=== PATIENT | female | born 1955 | race Caucasian/White ===

== ENCOUNTER 2023-01-03 14:50 | Outpatient (REF) | payer BC, MEDICARE, SELFPAY | END 2023-01-03 14:51 | disposition home or self-care (01) | LOC: HO.MAMMO 14:50 | PROVIDERS: PCP Internal Medicine Medical Oncology; Visit Provider Internal Medicine Medical Oncology | DX: Z12.31 Encounter for screening mammogram for malignant neoplasm of breast (principal) | CPT/HCPCS: 77063; 77067 ==

== ENCOUNTER → 2023-01-03 15:00 | Outpatient (BNV) | payer MEDICARE, BC, SELFPAY | PROVIDERS: PCP Internal Medicine Medical Oncology; Visit Provider Radiology Diagnostic Radiology | DX: Z12.31 Encounter for screening mammogram for malignant neoplasm of breast (principal) | CPT/HCPCS: 77063; 77067 ==

== ENCOUNTER 2023-04-23 18:20 | Outpatient (AMB) | payer MEDICARE, BC, SELFPAY ==
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
== END 2023-04-23 18:21 | disposition home or self-care (01) ==
LOC: HO.HOP 18:21
PROVIDERS: PCP Internal Medicine Medical Oncology; Visit Provider Clinical Nurse Specialist Psychiatric/Mental Health
DX: F43.11 Post-traumatic stress disorder, acute (principal); F40.01 Agoraphobia with panic disorder; A31.0 Pulmonary mycobacterial infection; J85.0 Gangrene and necrosis of lung; F33.9 Major depressive disorder, recurrent, unspecified
CPT/HCPCS: 99443

== ENCOUNTER → 2023-04-23 18:20 | Outpatient (BNVA) | payer MEDICARE, BC, SELFPAY | PROVIDERS: PCP Internal Medicine Medical Oncology; Visit Provider Clinical Nurse Specialist Psychiatric/Mental Health ==

== ENCOUNTER 2023-05-24 18:01 | Outpatient (AMB) | payer MEDICARE, BC, SELFPAY ==
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
== END 2023-05-24 18:08 | disposition home or self-care (01) ==
LOC: HO.HOP 18:01
PROVIDERS: PCP Internal Medicine Medical Oncology; Visit Provider Clinical Nurse Specialist Psychiatric/Mental Health
DX: F33.1 Major depressive disorder, recurrent, moderate (principal); F40.01 Agoraphobia with panic disorder; F43.11 Post-traumatic stress disorder, acute
CPT/HCPCS: 99443

== ENCOUNTER → 2023-05-24 18:01 | Outpatient (BNVA) | payer MEDICARE, BC, SELFPAY | PROVIDERS: PCP Internal Medicine Medical Oncology; Visit Provider Clinical Nurse Specialist Psychiatric/Mental Health | DX: F33.9 Major depressive disorder, recurrent, unspecified (principal); F40.01 Agoraphobia with panic disorder; F43.10 Post-traumatic stress disorder, unspecified ==

== ENCOUNTER 2023-07-13 15:43 | Outpatient (AMB) | payer MEDICARE, BC, SELFPAY ==
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
== END 2023-07-13 15:54 | disposition home or self-care (01) ==
LOC: HO.HOP 15:43
PROVIDERS: PCP Internal Medicine Medical Oncology; Visit Provider Clinical Nurse Specialist Psychiatric/Mental Health
DX: F33.9 Major depressive disorder, recurrent, unspecified (principal); F40.01 Agoraphobia with panic disorder; F43.10 Post-traumatic stress disorder, unspecified
CPT/HCPCS: 99214

== ENCOUNTER → 2023-07-13 15:43 | Outpatient (BNVA) | payer MEDICARE, BC, SELFPAY | PROVIDERS: PCP Internal Medicine Medical Oncology; Visit Provider Clinical Nurse Specialist Psychiatric/Mental Health | DX: F33.9 Major depressive disorder, recurrent, unspecified (principal); F40.01 Agoraphobia with panic disorder; F43.10 Post-traumatic stress disorder, unspecified | CPT/HCPCS: 99212 ==

== ENCOUNTER 2023-08-31 15:58 | Outpatient (AMB) | payer BC, MEDICARE, SELFPAY ==
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
--- OUTSIDE RECORDS SUMMARY | 2023-08-31 15:59 | XMS_ITS | Continuity of Care Document ---
Author Organization [facility] ter Address [address] [place] [id number]- Care Team Providers Care Bronc Buster Name Role Phone Jeremiah MENENDEZ, Ronnell Mckinnon Primary Care Physician Encounter [facility] [place] 04/22/20 - 08/26/[address] [id number] Attending Physician: Jerman Mckeon MD Admitting Physician: Jerman Mckeon MD Allergies, Adverse Reactions, Alerts Substance Reaction Severity Status Egg Allergy Severe Active Medications albuterol CFC free 90 mcg/inh inhalation aerosol 2, puffs, Inhalation, Every 4 hours, PRN, # 6.7 Gm, Refills 0, Maintenance, 03/25/20 16:35:00 EST, Aerosol Start Date: 03/25/20 Status: Ordered atorvastatin 10 mg oral tablet 1 tablet = 10 mg, By Mouth, Daily, # 30 tablet, 0 Refills, Maintenance, 03/25/20 16:34:00 EST, Partial fill upon patient request if the prescription is for a schedule II opioid drug. Start Date: 03/25/20 Status: Ordered buPROPion 300 mg/24 hours (XL) oral tablet, extended release 1 tablet = 300 mg, By Mouth, Daily, # 60 tablet, 0 Refills, Maintenance, 03/25/20 16:37:00 EST, ER Tablet, Partial fill upon patient request if the prescription is for a schedule II opioid drug. Start Date: 03/25/20 Status: Ordered escitalopram 10 mg oral tablet 1 tablet = 10 mg, By Mouth, Daily, # 30 tablet, 0 Refills, Maintenance, 03/25/20 16:37:00 EST, Tablet, Partial fill upon patient request if the prescription is for a schedule II opioid drug. Start Date: 03/25/20 Status: Ordered gabapentin 100 mg oral capsule 100 mg, 1, capsule, By Mouth, 2 times a day, # 120 capsule, Refills 0, Maintenance, 03/25/20 16:39:00 EST, Partial fill upon patient request if the prescription is for a schedule II opioid drug. Start Date: 03/25/20 Status: Ordered LORazepam 1 mg oral tablet 1 tablet = 1 mg, By Mouth, 3 times a day, PRN for anxiety, 0 Refills, Maintenance, 03/25/20 16:38:00 EST, Tablet, Partial fill upon patient request if the prescription is for a schedule II opioid drug. Start Date: 03/25/20 Status: Ordered meloxicam 15 mg oral tablet 1 tablet = 15 mg, By Mouth, Daily, # 30 tablet, 0 Refills, Maintenance, 03/25/20 16:35:00 EST, Tablet, Partial fill upon patient request if the prescription is for a schedule II opioid drug. Start Date: 03/25/20 Status: Ordered omeprazole 20 mg oral delayed release tablet 1 tablet = 20 mg, By Mouth, Daily, # 30 tablet, 0 Refills, Maintenance, 03/25/20 16:40:00 EST, CR Tablet, Partial fill upon patient request if the prescription is for a schedule II opioid drug. Start Date: 03/25/20 Status: Ordered Suprep Bowel Prep Kit oral liquid See Instructions, please follow instructions, # 354 mL, 0 Refills, Maintenance, 04/20/20 14:21:00 EST, [facility] #[id number], Partial fill upon patient request if the prescription is for a schedule II opioid drug., please follow instructions, 15... Start Date: 04/20/20 Status: Ordered tiZANidine 4 mg oral tablet 4 mg, 1, tablet, By Mouth, Every 8 hours, # 90 tablet, Refills 0, Maintenance, 03/25/20 16:35:00 EST, Partial fill upon patient request if the prescription is for a schedule II opioid drug. Start Date: 03/25/20 Status: Ordered traZODone 50 mg oral tablet 50 mg, 1, tablet, By Mouth, Daily at bedtime, # 30 tablet, Refills 0, Maintenance, 03/25/20 16:38:00 EST, Partial fill upon patient request if the prescription is for a schedule II opioid drug. Start Date: 03/25/20 Status: Ordered
--- OUTSIDE RECORDS SUMMARY | 2023-08-31 15:59 | XMS_ITS | Continuity of Care Document ---
Author Organization [facility] Address [address] [place] [id number]- Care Team Providers Care Char Conveyor Tender Cellar Name Role Phone Ronnell Daniels MD Primary Care Physician [place] [facility] [place]20 [facility] [address] [place] [id number] Allergies, Adverse Reactions, Alerts Substance Reaction Severity [...] mL, 0 Refills, Maintenance, 04/20/20 14:21:00 EST, [facility] #[id number], Partial fill upon patient request if the [...]
--- OUTSIDE RECORDS SUMMARY | 2023-08-31 15:59 | XMS_ITS | Patient Health Record ---
Author Organization Ronnell Daniels III, MD Address [address] [place] [address] [place] [address] Care Team Providers Care Acid Splicer Name Role Phone Ronnell Daniels Primary Care Provider [phone] ALLERGIES Allergen (clinical drug ingredient) Drug/Non Drug Allergy documented on EMR Reaction Allergy Type Onset Date Status Eggs or Egg-derived Products Unknown Drug Allergy Active Coconut Flavor Unknown Drug Allergy Ac tive raw pultery (uncoded) Unknown Allergy Active RESULTS Component Value Reference Range Notes MM tomosynthesis screening B I Reviewed date:01/21/2023 05:17:51 PM Interpretation: Performing Lab: Notes/Report: [address] [place] [address] Mammography Report Signed Patient: Chin MR#: [id number] : 1955 Acct:[id number] Age/Sex: 67 / F ADM Date: 01/03/23 Loc: HO.MAMMO Attending Dr: Ronnell Daniels MD Ordering Physician: Ronnell Daniels MD Results: 1Negativ e Date of Service: 01/03/23 Follow Up: 1 Year From Orig inal Mammogram Procedure(s): MM tomosynthesis screening BI Accession Number(s): [id number] cc: Ronnell Daniels MD EXAMINATION: MM SCREENING DIGITAL BREAST TOMOSYNTHESIS, BILATERAL CLINICAL INFORMATION: Screening. Asymptomatic. COMPARISON: Mammography: This study is compared with prior exams dating back to 2017. TECHNIQUE: Digital breast tomosynthesis is performed in both the craniocaudal and mediolateral oblique views along with computer-aided detection (CAD). Synthesized 2D images are generated from the tomosynthesis. FINDINGS: There are scattered areas of fibroglandular density (ACR BI-RADS breast composition Category b). There are no significant masses, abnormal calcifications, or other abnormalities. MM/MM tomosynthesis screening BI IMPRESSION: No mammographic evidence of malignancy. ASSESSMENT: BI-RADS BI-RADS 1 - Negative RECOMMENDATION: Routine annual mammography screening. 1 year F/U This examination should not preclude the clinical evaluation of a suspicious palpable abnormality. This patient's information was entered into a reminder system with a target due date for their next mammogram. Dictated By: Monica Mckeon MD Signed By: <Electronically signed by Monica Mckeon MD in OV> 01/19/23 0657 DD/ 1526 TD/TT: Digital Manager: REASON FOR REFERRAL No Information MEDICATIONS Medication SIG (Take, Route, Frequency, Duration) Notes Start Date End Date Status Wellbutrin SR 150 MG 1 tablet Orally Twi ce a day Active Meloxicam 15 mg TAKE 1 TABLET DAILY Active Azithromycin 250 MG as directed Orally 2 Tablets on the first day, then 1 tablet daily for 5 days for 5 days Active Atorvastatin Calcium 10 mg TAKE 1 TABLET DAILY Active Asmanex HFA Active Hydroxychloroquine Sulfate 1 00 MG as directed Orally Active LORazepam 1 MG 1 tablet at bedtime as needed Orally Twice a day 08/19/2019 Active Albuterol Sulfate HFA 108 (9 0 Base) MCG/ACT USE 2 INHALATIONS EVERY 4 HOURS NEEDED Active tiZANidine HCl 4 mg TAKE 1 TABLET THREE TIMES A DAY Active Furosemide 20 MG 1 tablet Orally Once a day 07/04/2022 Active oxyCODONE HCl 5 MG Oral A ctive SOCIAL HISTORY Tobacco Use: Social History Observation Description Date Details (start date - stop date) Former Smoker NA - NA Sex Assigned At : Social History Observation Description Sex Assigned At Female Tobacco Use/Smoking Question Answer Notes Patient is a former smoker How long has it been since you last smoked? > 10 years Additional Findings: Tobacco Non-User Ex-cigaret te smoker Alcohol Screen Question Answer Notes Did you have a drink containing alcohol in the p ast year? No Points 0 Interpretation Negative PROBLEMS Problem Type ICD Code Onset Dates Problem Status W/U Status Risk SNOMED Code Notes Problem Hyperlipidemia, unspecified hyperlipidemia type (E78.5) Active confirmed Hyperlipidaemia (55944835) A fasting lipid profile was recommended prior to her next visit. She seems healthy well at this time. She is tolerating the atorvastatin which has been continued. She is not sure she wants to have blood work done regularly at this point. She said she will consider it. It has been ordered prior to her next visit. Problem Asthma, unspecified asthma severity, unspecified whether complicated, unspecified whether persistent (J45.909) Active confirmed Asthma without status asthmaticus (37677468) She was breathing comfortably today and her asthmatic bronchitis has resolved. She was encouraged to call me if it worsens. Problem Anxiety (F41.9) Active confirmed 295325 02 She has felt a great deal of anxiety lately. She is going to see her therapist. She declined my offer of medication. Problem History of depression (Z86.59) Active confirmed 284998821 She says today that she has stopped all of her medications. It was unclear if she was taking the antidepressant s. I strongly recommended she take them. I will arrange close follow-up with her. She adamantly denied any suicidal thoughts or desire to hurt himself. Problem PTSD (post-traumatic stress disorder) (F43.10) Active confirmed 75359600 She will continue with therapy. Problem Primary osteoarthritis involving multiple joints (M15.0) Active confirmed 312166886 She has finished with the orthopedic surgeon and will now see the power wheelchair mechanic . She will take the meloxicam. Problem Osteopenia, unspecified location (M85.80) Active confirmed 945776469 She moe l have a bone density every 2 years. I recommended 500 mg of calcium per day orally with a multiple vitamin. She says she has been doing this. She denies any new bone pain in her back. Problem Atypical squamous cells of undetermined significance on cytologic smear of cervix (ASC-US) (R87.610) Active confirmed 295309421 Her previous physicians records indicate a history of positivity for HPV and ACUS. She has an upcoming appointment and I will attempt to find old records. 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 Problem Former smoker (Z87.891) Active confirmed 5554776 She seems highly motivated not to smoke. We formulated a plan to prevent relapse in times of stress and illness. Problem Sciatica of right side (M54.31) Active confirmed 66817275 Her back pa in is significantly better than recently. She will continue on current treatment. Problem Overweight (E66.3) Active confirmed 753490647 We reviewed her diet and nutrition today. I recommended weight loss at a rate of one half of a pound per week through a diet restricted in fat calories and sodium combined with regular physical activity. Problem Closed nondisplaced fracture of patella with routine healing, unspecified fracture morphology, unspecified laterality, subsequent encounter (S82.009D) Active confirmed 60116856 The pain in her knee is still present but is slowly diminishing as the wound heals. Problem Pulmonary nodule (R91.1) Active confirmed 191595700 The CT scan of February 18, 2022 shows possible increase in a 3 mm nodule right upper lobe. This will be subject to surveillance. Problem Coronary atherosclerosis due to calcified coronary lesion (I25.84) Active confirmed Atherosclerosis of coronary artery (591078523) She has had no angina or chest pain since her last visit. No change in her regimen was made. She has seen a automatic profile sander operator who thinks the pain comes from her lungs. Problem HTN (hypertension) (I10) Active confirmed Hypertension (78540196) Her blood pressure is in the normal range today. No change in her regimen was recommended. 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 I gently discussed with her the possible consequences of progressive infection. I offered to have her see pulmonary and infectious disease to discuss all of the possible alternatives to caring. The pulmonary infection. At this point in time, she is unwilling to talk to them or to take any further antibiotics. It is noted that she coughed repeatedly during the office visit. I will continue to monitor this situation closely and help arrived, had a successful strategy. Problem Closed fracture of right wrist with routine healing, subsequent encounter (S62.101D) Active confirmed 443680127 I encouraged her to continue her visits to the orthopedist and she said she would do so. Problem Mycobacterium avium infection (A31.0) Active confirmed 619072615 She is refusing to take her antibiotics for unclear reasons. She will proceed to the CT scan and the pulmonary ux consultant, Dr. Beltre, and we will reevaluate the status of her infection. I strongly advised her to finish the antibiotics. Encounters Encounter Location Date Provider Diagnosis Ronnell Daniels III, MD [address] [place] [address] [place] [address] 11/08/2022 Ronnell Daniels III, MD [address] [place] [address] [place] [address] 02/14/2023 Ronnell Daniels III, MD [address] [place] [address] [place] [address] 02/14/2023 Ronnell Daniels III, MD [address] [place] [address] [place] [address] 02/14/2023 Ronnell Daniels III, MD [address] [place] [address] [place] [address] 02/15/2023 Ronnell Daniels III, MD [address] [place] [address] [place] [address] 03/29/2023 Ronnell Daniels PLAN OF TREATMENT Pending Test Test Name Order Date PROFILE, FASTING (COMPREHENSIVE METABOLI C) 12/09/2018 PROFILE, FASTING (COMPREHENSIVE METABOLI C) 04/12/2021 PROFILE, FASTING (COMPREHENSIVE METABOLI C) 02/02/2022 PROFILE, FASTING (COMPREHENSIVE METABOLI C) 06/16/2019 PROFILE, FASTING (COMPREHENSIVE METABOLI C) 12/01/2020 PROFILE, FASTING (COMPREHENSIVE METABOLI C) 07/15/2021 PROFILE, RANDOM (COMPREHENSIVE METABOLIC ) 04/14/2020 LIPID PANEL 07/15/2021 LIPID PANEL 12/09/2018 LIPID PANEL 06/16/2019 GGT 04/14/2020 CBC w DIFF 12/01/2020 CBC w DIFF 06/16/2019 CBC w DIFF 07/15/2021 CBC w DIFF 12/09/2018 CBC w DIFF 04/12/2021 CBC w DIFF 04/14/2020 CBC w DIFF 02/02/2022 Lipid Panel 12/01/2020 Lipid Panel 04/12/2021 Lipid Panel 02/02/2022 CA stress test 02/02/2022 CA stress test 03/09/2022 Insurance Providers Payer Name Payer Address Payer Phone Subscriber Number Group Number Insured Name Patient Relationship to Insured Coverage Start Date Coverage End Date MEDICARE NGS [address] [place] [phone] [id number] May Self - patient is the insured [facility] [address] [place], [place] [id number] [phone] [id number] May Self - patient is the insured MEDICAL (GENERAL) HISTORY Medical History History ICD Code Anxiety F41.9 PTSD (post-traumatic stress disorder) F4 3.10 asthma osteoarthritis, 2018, right hip and righ t knee, after surgery mixed hyperlipidemia osteopenia depression history of trochanteric bursitis history of injections in the spine for p ain former smoker 2016 ASCUS, HPV +, abnormal Pap smear declines to undergo colonoscopy Bilateral necrotizing cavitary pneumonia [facility] November 2021 Surgical History Surgery Date(Month/Year) right knee surgery x3 2017 right shoulder surgery Gallbladder Left lung Bx 2021 right humerus fracture, fall 05/2022 right wrist colle's fracture, fall 3 Hospitalization History Reason Date(Month/Year) Hypertension 03/2019
--- OUTSIDE RECORDS SUMMARY | 2023-08-31 16:00 | XMS_ITS | Continuity of Care Document ---
Author Organization [facility] Address [address] [place] [address]- Care Team Providers Care Television Antenna Installer Name Role Phone Ronnell Daniels MD Primary Care Physician Encounter [facility] [place] Date(s): 04/20/20 - 05/20/20 [facility] [address] [place] [address] Attending Physician: Admtr, Tarik8 Admitting Physician: Admtr, Ar8 Referring Physician: Admtr, Ar8 Allergies, Adverse Reactions, Alerts Substance Reaction Severity [...] mL, 0 Refills, Maintenance, 04/20/20 14:21:00 EST, [id number], Partial fill upon patient request if the [...]
--- OUTSIDE RECORDS SUMMARY | 2023-08-31 16:00 | XMS_ITS | Continuity of Care Document ---
Author Organization [facility] Address [address] [place] [address]- Care Team Providers Care Academic Interventionist Name Role Phone Ronnell Daniels MD Primary Care Physician [phone] Encounter [facility] Date(s): 03/27/22 - 04/26/[address] [address]- Attending Physician: AdmBetty engle Admitting Physician: Admtr, Ar8 Referring Physician: Admtr, [...] mL, 0 Refills, Maintenance, 04/20/20 14:21:00 EST, [facility] #[id number], Partial fill upon patient request if the [...] opioid drug. Start Date: 03/25/20 Status: Ordered Patient Care team information Care Team Personnel Name: Ronnell Daniels MD Position: [facility] Oncology MD Member Role: PCP Address: Address: [address] Ronnell Daniels III, [place] [address]- Name: Miguel Ángel Morales MD Position: [facility] Renal MD Member Role: Lifetime Consulting Physician Address: Address: [address] [facility] [place] [address]- Care Team Related Persons Name: LULA STEWART Address: home [address] [place] [address] Name: MAZIN MENDIOLA Address: home [address] [place] [address]
--- OUTSIDE RECORDS SUMMARY | 2023-08-31 16:00 | XMS_ITS | Continuity of Care Document ---
Author Organization [facility] ter Address [address] [place] [address]- Care Team Providers Care Commercial Lending Assistant Name Role Phone Jeremiah MENENDEZ, Ronnell Mckinnon Primary Care Physician Encounter [facility] [place] Date(s): 03/25/20 - 03/26/[address] [address] Discharge Disposition: A-D/C Home Attending Physician: Ann Gar MD Admitting Physician: Jerman Mckeon MD Referring Physician: Jerman Mckeon MD Allergies, Adverse Reactions, [...] opioid drug. Start Date: 03/25/20 Status: Ordered tiZANidine 4 mg oral tablet [...] opioid drug. Start Date: 03/25/20 Status: Ordered Procedures Procedure Date Related Diagnosis Body Site Status Cholangioscopy 03/25/20 Completed Results Radiology Reports * Exam Date Time Procedure Performing Provider Status 03/25/20 1:00 PM Chest Portable Karla Malone; Auth (Verified) Notes: (Chest Portable) Reason For Exam: Hemoptysis RESULT: Chest Portable Chest Portable Reason: Hemoptysis; Clinical Question(s): Atelectasis COMPARISON: None. FINDINGS: LINES AND TUBES: None. LUNGS AND PLEURA: No pneumothorax or pleural effusion. There is a nodular focal opacity superior LEFT lung, projecting over the posterior LEFT sixth rib. In addition, bilateral diffuse haziness of the interstitial markings. HEART, MEDIASTINUM AND SANDEEP: Heart is normal in size. Normal upper mediastinal and hilar contour. BONES AND SOFT TISSUES: No acute abnormality. IMPRESSION: 1. Focal nodular opacity superior LEFT lung. Recommend either additional x-ray imaging to include PA, lateral, bilateral oblique views or CT chest. 2. Bilateral diffuse haziness of the interstitial markings, uncertain if related to mild interstitial edema or if due to portable AP technique with slightly low lung volumes. 3. No evidence for pleural effusion. WSN: [id number] Ordering Physician: Kellie Chatterjee Dictated By: Brooke Herron MD Dictated Date/Time: 03/25/20 1:21 pm Reviewed By: Brooke Herron MD Signed By: Brooke Herron MD Signed Date/Time: 03/25/20 1:21 pm Transcribed By: DONNIE Transcribed Date/Time: 03/25/20 1:14 pm * Exam Date Time Procedure Performing Provider Status 03/25/20 10:51 AM ERCP Both Ducts Karla Malone; Aut h (Verified) Notes: (ERCP Both Ducts) Reason For Exam: gallbladder HGD RESULT: ERCP Both Ducts ERCP Both Ducts INDICATION: gallbladder HGD COMPARISONS: None TECHNIQUE: Fluoroscopy support was provided. There was no radiologist in attendance. Fluoroscopy time: 2 minutes 12 seconds Technologist time: 1.5 hours Exposure: 28.9 mGy FINDINGS: 8 images were submitted. Please refer to operative note for full details. IMPRESSION: See above. WSN: [id number] Ordering Physician: Jerman Mckeon Dictated By: Darrick Gunderson MD Dictated Date/Time: 03/25/20 11:24 a Reviewed By: Darrick Gunderson MD Signed By: Darrick Gunderson MD Signed Date/Time: 03/25/20 11:24 am Transcribed By: DONNIE Transcribed Date/Time: 03/25/20 11:23 am Vital Signs Most recent to oldest [Reference Range]: 1 2 3 Height 157.5 cm (03/25/20 4:16 PM) 157.5 cm (03/25/20 4:12 PM) 157.5 cm (03/25/20 4:01 PM) Weight 64 kg (03/25/20 4:01 PM) Oxygen Saturation [94-100 %] 95 % (03/25/20 4:16 PM) 95 % (03/25/20 4:12 PM) 97 % (03/25/20 3:08 PM) Pulse Rate [55-90 bpm] 101 bpm *H* (03/25/20 4:12 PM) 92 bpm *H* (03/25/20 7:59 AM) Body Mass Index [18.5-24.99] 25.8 *H* (03/25/20 4:01 PM) Blood Pressure [90-138/55-84 mm Hg] 143/78mm Hg *H* (03/25/20 4:12 PM) 137/76mm Hg (03/25/20 3:08 PM) 143/74mm Hg *H* (03/25/20 2:44 PM) Respiratory Rate [16-30 br/min] 20 br/min (03/25/20 4:12 PM) 20 br/min (03/25/20 1:28 PM) 22 br/min (03/25/20 12:15 PM) Temperature [96.8-100.4 DegF] 98.0 DegF (03/25/20 4:12 PM) 98.2 DegF (03/25/20 7:59 AM) Liters per Minute 2 L/min (03/25/20 3:08 PM) 2 L/min (03/25/20 2:44 PM) 2 L/min (03/25/20 2:05 PM) Mode of Delivery (Oxygen) Room air (03/25/20 4:16 PM) Room air (03/25/20 4:12 PM) Nasal cannula (03/25/20 3:08 PM) Blood pressure sites Arm, left (03/25/20 4:12 PM) Arm, left (03/25/20 3:08 PM) Arm, left (03/25/20 2:44 PM) Temperature Route Oral (03/25/20 4:12 PM) Temporal (03/25/20 7:59 AM) Dry Weight 64 kg (03/25/20 4:01 PM) 63.5 kg (03/25/20 7:59 AM) Dry Weight Obtained Via Patient/family stated (03/25/20 7:59 AM)
== END 2023-08-31 15:59 | disposition home or self-care (01) ==
LOC: HO.HOP 15:58
PROVIDERS: PCP Internal Medicine Medical Oncology; Visit Provider Clinical Nurse Specialist Psychiatric/Mental Health
DX: F33.9 Major depressive disorder, recurrent, unspecified (principal); F40.01 Agoraphobia with panic disorder
CPT/HCPCS: 99443

== ENCOUNTER → 2023-08-31 15:58 | Outpatient (BNVA) | payer BC, MEDICARE, SELFPAY | PROVIDERS: PCP Internal Medicine Medical Oncology; Visit Provider Clinical Nurse Specialist Psychiatric/Mental Health ==

== ENCOUNTER 2023-09-13 17:36 | Outpatient (AMB) | payer BC, MEDICARE, SELFPAY ==
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
== END 2023-09-13 17:38 | disposition home or self-care (01) ==
LOC: HO.HOP 17:36
PROVIDERS: PCP Internal Medicine Medical Oncology; Visit Provider Clinical Nurse Specialist Psychiatric/Mental Health
DX: F33.2 Major depressive disorder, recurrent severe without psychotic features (principal); F40.01 Agoraphobia with panic disorder; F43.11 Post-traumatic stress disorder, acute
CPT/HCPCS: 99214

== ENCOUNTER → 2023-09-13 17:36 | Outpatient (BNVA) | payer BC, MEDICARE, SELFPAY | PROVIDERS: PCP Internal Medicine Medical Oncology; Visit Provider Clinical Nurse Specialist Psychiatric/Mental Health ==

== ENCOUNTER 2023-10-25 14:47 | Outpatient (AMB) | payer BC, MEDICARE, SELFPAY ==
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
== END 2023-10-25 14:55 | disposition home or self-care (01) ==
LOC: HO.HOP 14:47
PROVIDERS: PCP Internal Medicine Medical Oncology; Visit Provider Clinical Nurse Specialist Psychiatric/Mental Health
DX: F33.9 Major depressive disorder, recurrent, unspecified (principal); F43.10 Post-traumatic stress disorder, unspecified; F40.01 Agoraphobia with panic disorder; A31.0 Pulmonary mycobacterial infection; J85.0 Gangrene and necrosis of lung
CPT/HCPCS: 99214

== ENCOUNTER → 2023-10-25 14:47 | Outpatient (BNVA) | payer BC, MEDICARE, SELFPAY | PROVIDERS: PCP Internal Medicine Medical Oncology; Visit Provider Clinical Nurse Specialist Psychiatric/Mental Health ==

== ENCOUNTER 2023-11-26 15:09 | Outpatient (AMB) | payer BC, MEDICARE, SELFPAY ==
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
== END 2023-11-26 15:54 | disposition home or self-care (01) ==
LOC: HO.HOP 15:09
PROVIDERS: PCP Internal Medicine Medical Oncology; Visit Provider Clinical Nurse Specialist Psychiatric/Mental Health
DX: F33.9 Major depressive disorder, recurrent, unspecified (principal); F40.01 Agoraphobia with panic disorder; F43.10 Post-traumatic stress disorder, unspecified
CPT/HCPCS: 99214

== ENCOUNTER → 2023-11-26 15:09 | Outpatient (BNVA) | payer BC, MEDICARE, SELFPAY | PROVIDERS: PCP Internal Medicine Medical Oncology; Visit Provider Clinical Nurse Specialist Psychiatric/Mental Health ==

== ENCOUNTER 2023-12-27 13:40 | Outpatient (AMB) | payer BC, MEDICARE, SELFPAY ==
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
== END 2023-12-27 14:23 | disposition home or self-care (01) ==
LOC: HO.HOP 13:40
PROVIDERS: PCP Internal Medicine Medical Oncology; Visit Provider Clinical Nurse Specialist Psychiatric/Mental Health
DX: F33.2 Major depressive disorder, recurrent severe without psychotic features (principal)
CPT/HCPCS: 98968

== ENCOUNTER → 2023-12-27 13:40 | Outpatient (BNVA) | payer BC, MEDICARE, SELFPAY | PROVIDERS: PCP Internal Medicine Medical Oncology; Visit Provider Clinical Nurse Specialist Psychiatric/Mental Health | DX: F33.9 Major depressive disorder, recurrent, unspecified (principal); F40.01 Agoraphobia with panic disorder; F43.10 Post-traumatic stress disorder, unspecified ==

== ENCOUNTER 2024-01-09 14:27 | Outpatient (REF) | payer BC, MEDICARE, SELFPAY ==
--- NOTE | ~2024-01-09 | MM_ITS ---
EXAMINATION: MM SCREENING DIGITAL BREAST TOMOSYNTHESIS, BILATERAL CLINICAL INFORMATION: Screening. Asymptomatic. COMPARISON: Mammography: Comparison is made with available priors TECHNIQUE: Digital breast mammography with tomosynthesis is performed in both the craniocaudal and mediolateral oblique views along with computer-aided detection (CAD). FINDINGS: There are scattered areas of fibroglandular density (ACR BI-RADS breast composition Category b). There are no significant masses, abnormal calcifications, or other abnormalities. MM/MM tomosynthesis screening BI IMPRESSION: No mammographic evidence of malignancy. ASSESSMENT: BI-RADS BI-RADS 1 - Negative RECOMMENDATION: Routine annual mammography screening. 1 year F/U This examination should not preclude the clinical evaluation of a suspicious palpable abnormality. This patient's information was entered into a reminder system with a target due date for their next mammogram. Electronically signed by: Annette Banuelos DO 01/21/2024 09:05 AM ESTELA
== END 2024-01-09 14:28 | disposition home or self-care (01) ==
LOC: HO.MAMMO 14:27
PROVIDERS: PCP Internal Medicine Medical Oncology; Visit Provider Internal Medicine Medical Oncology
DX: Z12.31 Encounter for screening mammogram for malignant neoplasm of breast (principal)
CPT/HCPCS: 77063; 77067

== ENCOUNTER → 2024-01-09 14:45 | Outpatient (BNV) | payer BC, MEDICARE, SELFPAY | PROVIDERS: PCP Internal Medicine Medical Oncology; Visit Provider Internal Medicine | DX: Z12.31 Encounter for screening mammogram for malignant neoplasm of breast (principal) | CPT/HCPCS: 77063; 77067 ==

== ENCOUNTER 2024-02-25 17:03 | Outpatient (AMB) | payer BC, MEDICARE, SELFPAY ==
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
== END 2024-02-25 17:04 | disposition home or self-care (01) ==
LOC: HO.HOP 17:03
PROVIDERS: PCP Internal Medicine Medical Oncology; Visit Provider Clinical Nurse Specialist Psychiatric/Mental Health
DX: F33.9 Major depressive disorder, recurrent, unspecified (principal); F40.01 Agoraphobia with panic disorder; F43.10 Post-traumatic stress disorder, unspecified
CPT/HCPCS: 98966

== ENCOUNTER → 2024-02-25 17:03 | Outpatient (BNVA) | payer BC, MEDICARE, SELFPAY | PROVIDERS: PCP Internal Medicine Medical Oncology; Visit Provider Clinical Nurse Specialist Psychiatric/Mental Health | DX: F33.9 Major depressive disorder, recurrent, unspecified (principal); F40.01 Agoraphobia with panic disorder; F43.10 Post-traumatic stress disorder, unspecified ==

== ENCOUNTER 2024-03-28 15:42 | Outpatient (AMB) | payer MEDICARE, BC, SELFPAY ==
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
--- OUTSIDE RECORDS SUMMARY | 2024-03-28 15:44 | XMS_ITS | Patient Health Record ---
Author Organization Ronnell Daniels III, MD Address [address] [place] [address] [place] [address] Care Team Providers Care Motor Vehicles Supervisor Name Role Phone Ronnell Daniels Primary Care Provider [phone] Allergies Allergen (clinical drug ingredient) Drug/Non Drug Allergy documented on EMR Reaction Allergy Type Onset Date Status Eggs or Egg-derived Products Unknown Drug Allergy Active Coconut Flavor Unknown Drug Allergy Ac tive raw poultry (uncoded) Unknown Allergy Active Results Component Value Reference Range Notes MM tomosynthesis screening B I Reviewed date:01/28/2024 05:37:36 AM Interpretation: Performing Lab: Notes/Report: [address] [place] [address] Mammography Report Signed Patient: Chin MR#: [id number] : 1955 Acct:[id number] Age/Sex: 68 / F ADM Date: 01/09/24 Loc: HO.MAMMO Attending Dr: Ronnell Daniels MD Ordering Physician: Ronnell Daniels MD Results: 1Negativ e Date of Service: 01/09/24 Follow Up: 1 Year From Orig inal Mammogram Procedure(s): MM tomosynthesis screening BI Accession Number(s): [id number] cc: Ronnell Daniels MD EXAMINATION: MM SCREENING DIGITAL BREAST TOMOSYNTHESIS, BILATERAL CLINICAL INFORMATION: Screening. Asymptomatic. COMPARISON: Mammography: Comparison is made with available priors TECHNIQUE: Digital breast mammography with tomosynthesis is performed in both the craniocaudal and mediolateral oblique views along with computer-aided detection (CAD). FINDINGS: There are scattered areas of fibroglandular [...] target due date for their next mammogram. Electronically signed by: Annette Banuelos DO 01/21/2024 09:05 AM EST Dictated By: Annette Banuelos DO Signed By: <Electronically signed by Annette Banuelos DO in OV> 01/21/24 0905 DD/ 1435 TD/TT: 01/09/24 1448 College Associate: [facility] [address] [place] [address] Mammography Report Signed Patient: Chin MR#: [id number] : 1955 Acct:[id number] Age/Sex: 68 / F ADM Date: 01/09/24 Loc: .MAMMO Attending Dr: Ronnell Daniels MD Ordering Physician: Ronnell Daniels MD Results: 1Negativ e Date of Service: Follow Up: 1 Year From Orig ina Mammogram Procedure(s): MM krzysztof osynthesis screening BI Accession Number(s): [id number] cc: Ronnell Daniels MD EXAMINATION: MM SCREENING DIGITAL BREAST TOMOSYNTHESIS, BILATERAL CLINICAL INFORMATION: Screening. Asymptomatic. COMPARISON: Mammography: Compari son is made with available priors TECHNIQUE: Digital breast mammo graphy with tomosynthesis is performed in both the craniocaudal and med iolateral oblique views along with computer-aided detection (CAD). FINDINGS: There are scattered areas of fibroglandular density (ACR BI-RADS breast composition Category b). There are no signifi cant masses, abnormal calcifications, or other abnormalities. M M/MM tomosynthesis screening BI IMPRESSION: No mammographic evid ence of malignancy. ASSESSMENT: BI-RADS BI-RADS 1 - Negative RECOMMENDATION: Routine annual mammo graphy screening. 1 year F/U This examination romeo uld not preclude the clinical evaluation of a suspicious palpable abnormality. This patient's infor mation was entered into a reminder system with a target due date for their next mammogram. Electronically nery d by: Annette Banuelos DO 01/21/2024 09:05 AM EST Dictated By: Annette Quiroz i, DO Signed By: <Yousif icallcaity signed by Annette Banuelos DO in OV> 01/21/24 0905 DD/ 143 TD/TT: 01/09/24 1448 College Associate: Reason For Referral No Information Medications Medication SIG (Take, Route, Frequency, Duration) Notes Start Date End Date Status Meloxicam 15 mg TAKE 1 TABLET DAILY Active Atorvastatin Calcium 10 mg TAKE 1 TABLET DAILY Active Wegovy 2.4 MG/0.75ML 0.75 mL Subcutaneou s weekly for 90 days disp 4 pens 01/14/2024 01/22/2025 Active Ibuprofen 800 MG 1 tablet with food o r milk as needed Orally every 8 hrs Active Wellbutrin SR 150 MG 1 tablet Orally Twi ce a day Active LORazepam 1 MG 1 tablet at bedtime as needed Orally Twice a day 08/19/2019 Active Asmanex HFA Active Albuterol Sulfate HFA 108 (90 Base) MCG/ACT USE 2 INHALATIONS EVERY 4 HOURS NEEDED Active Wegovy 1 MG/0.5ML 0.5 mL Subcutaneous weekly 11/20/2023 Active tiZANidine HCl 4 mg 1 tablet Orally thre e times a day Active Social History Tobacco Use: Social History Observation Description Date [...] ast year? No Points 0 Interpretation Negative Problems Problem Type SNOMED Code ICD Code Onset Dates Problem Status W/U Status Risk Notes Problem 6832824 Former smoker (Z87.891) Active confirmed She seems highly motivated not to smoke. We formulated a plan to prevent relapse in times of stress and illness. Problem 990579180 Overweight (E66.3) Active confirmed We reviewed her diet and nutrition today. I recommended weight loss at a rate of one half of a pound per week through a diet restricted in fat calories and sodium combined with regular physical activity.A change was made in the dose of the Wegovy. She will now take 2.4 mg weekly. Problem 70508587 Anxiety (F41.9) Active confirmed She has felt a great deal of anxiety lately. She is going to see her therapist. She declined my offer of medication. Problem 895336224 Other obesity du e to excess calories (E66.09) Active confirmed Her body m ass index is now in the overweight range. The Wegovy was increased to 1.0 mg by subcutaneous injection weekly. Problem Atherosclerosis of coronary artery (661904395) Coronary atherosclerosis due to calcified coronary lesion (I25.84) Active confirmed She has had no angina or chest pain since her last visit. No change in her regimen was made. She has seen a general manager farm who thinks the pain comes from her lungs. Problem 765704734 Atypical squamou s cells of undetermined significance on cytologic smear of cervix (ASC-US) (R87.610) Active confirmed Her previous physicians records indicate a history of positivity for HPV and ACUS. She has an upcoming appointment and I will attempt to find old records. Problem 416898381 Cervical high risk human papillomavirus (HPV) DNA test positive (R87.810) Active confirmed She will remain under the care of her machine repairman. Problem Hypertension (74327857) HTN (hypertension) (I10) Active confirmed Her blood pressure is in the normal range today. No change in her regimen was recommended. Problem 894101606 Pulmonary nodule (R91.1) Active confirmed The CT scan of February 18, 2022 shows possible increase in a 3 mm nodule right upper lobe. This will be subject to surveillance. Problem 307138962 Primary osteoarthritis involving multiple joints (M15.0) Active confirmed She has finished with the orthopedic surgeon and will now see the aircraft refueller . She will take the meloxicam. Problem 30560620 PTSD (post-traumatic stress disorder) (F43.10) Active confirmed She will continue with therapy. Problem Hyperlipidaemia (92520499) Hyperlipidemia, unspecified hyperlipidemia type (E78.5) Active confirmed No change in her medications was made today. Comprehensive blood work with fasting lipids has been ordered prior to her next visit. Problem 301199132 History of depression (Z86.59) Active confirmed She says today that she has stopped all of her medications. It was unclear if she was taking the antidepressant s. I strongly recommended she take them. I will arrange close follow-up with her. She adamantly denied any suicidal thoughts or desire to hurt himself. Problem 36335799 Sciatica of righ t side (M54.31) Active confirmed Her back pain is significantly better than recently. She will continue on current treatment. Problem Asthma without status asthmaticus (98106697) Asthma, unspecified asthma severity, unspecified whether complicated, unspecified whether persistent (J45.909) Active confirmed She was breathing comfortably today and her asthmatic bronchitis has resolved. She was encouraged to call me if it worsens. Problem 815617551 Osteopenia, unspecified location (M85.80) Active confirmed She will h ave a bone density every 2 years. I recommended 500 mg of calcium per day orally with a multiple vitamin. She says she has been doing this. She denies any new bone pain in her back. Problem 10528232 Closed nondisplaced fracture of patella with routine healing, unspecified fracture morphology, unspecified laterality, subsequent encounter (S82.009D) Active confirmed The pain in her knee is still present but is slowly diminishing as the wound heals. 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 I [...] help arrived, had a successful strategy. Problem 523711989 Closed fracture of right wrist with routine healing, subsequent encounter (S62.101D) Active confirmed I encouraged her to continue her visits to the orthopedist and she said she would do so. Problem 972313206 Mycobacterium avium infection (A31.0) Active confirmed She is refusing to take her antibiotics for unclear reasons. She will proceed to the CT scan and the pulmonary building performance consultant, Dr. Beltre, and we will reevaluate the status of her infection. I strongly advised her to finish the antibiotics. Vital Signs Heart Rate 88 /min 01/14/2024 Temperature 97.5 degrees Fahrenheit 01/14/2024 Blood pressure diastolic 80 mm Hg 01/14/2024 Height 61 in 01/14/2024 Blood pressure systolic 135 mm Hg 01/14/2024 Weight 143 lbs 01/14/2024 BMI 27.02 kg/m2 01/14/2024 Encounters Encounter Location Date Provider Diagnosis Ronnell Daniels III, MD [address] [place] [address] [place] [phone] 09/24/2023 Ronnell Daniels Hyperlipidemia, unspecified hyperlipidemia type E78.5 ; History of depression Z86.59 ; Asthma, unspecified asthma severity, unspecified whether complicated, unspecified whether persistent J45.909 ; Atypical squamous cells of undetermined significance on cytologic smear of cervix (ASC-US) R87.610 ; Osteopenia, unspecified location M85.80 ; Primary osteoarthritis involving multiple joints M15.0 ; Overweight E66.3 ; Sciatica of right side M54.31 ; Former smoker Z87.891 ; Mycobacterium avium infection A31.0 and Other obesity due to excess calories E66.09 Ronnell Daniels III, MD [address] [place] [address] [place] [phone] 10/23/2023 Ronnell Daniels Hyperlipidemia, unspecified hyperlipidemia type E78.5 ; Other obesity due to excess calories E66.09 ; Asthma, unspecified asthma severity, unspecified whether complicated, unspecified whether persistent J45.909 ; History of depression Z86.59 ; Cervical high risk human papillomavirus (HPV) DNA test positive R87.810 and Primary osteoarthritis involving multiple joints M15.0 Ronnell Daniels III, MD [address] [place] [address] [place] [phone] 11/20/2023 Ronnell Daniels Hyperlipidemia, unspecified hyperlipidemia type E78.5 ; Coronary atherosclerosis due to calcified coronary lesion I25.84 ; Other obesity due to excess calories E66.09 ; HTN (hypertension) I10 ; Former smoker Z87.891 and History of depression Z86.59 Ronnell Daniels III, MD [address] [place] [address] [place] [phone] 12/18/2023 Ronnell Daniels Hyperlipidemia, unspecified hyperlipidemia type E78.5 ; Asthma, unspecified asthma severity, unspecified whether complicated, unspecified whether persistent J45.909 ; History of depression Z86.59 ; Former smoker Z87.891 and Overweight E66.3 Ronnell Daniels III, MD [address] [place] [address] [place] [phone] 01/14/2024 Ronnell Daniels Hyperlipidemia, unspecified hyperlipidemia type E78.5 ; Overweight E66.3 ; Asthma, unspecified asthma severity, unspecified whether complicated, unspecified whether persistent J45.909 ; History of depression Z86.59 ; Former smoker Z87.891 ; Primary osteoarthritis involving multiple joints M15.0 ; Coronary atherosclerosis due to calcified coronary lesion I25.84 and HTN (hypertension) I10 Ronnell Daniels III, MD [address] [place] [address] [place] [phone] 03/29/2023 Ronnell Daniels III, MD [address] [place] [address] [place] [phone] 09/05/2023 Ronnell Daniels III, MD [address] [place] [address] [place] [phone] 09/25/2023 Ronnell Daniels III, MD [address] [place] [address] [place] [phone] 01/28/2024 Ronnell Daniels Hyperlipidemia, unspecified hyperlipidemia type E78.5 Assessments Encounter Date Diagnosis (ICD Code) Assessment Notes Treat ment Notes Treatment Clinical Notes 09/24/2023 Hyperlipidemia, unspecified hyperlipidemia type (ICD-10 - E78.5) I have ordered a fasting lipid profile to be done in the near future. No change in her medical regimen was made today. 09/24/2023 History of depressio n (ICD-10 - Z86.59) She says today that she has stopped all of her medications. It was unclear if she was taking the antidepressants. I strongly recommended she take them. I will arrange close follow-up with her. She adamantly denied any suicidal thoughts or desire to hurt himself. 10/23/2023 Other obesity due to excess calories (ICD-10 - E66.09) She has lost 3 pounds. Her body mass index is 30. The Wegovy was increased to 0.5 mg weekly. 10/23/2023 Hyperlipidemia, unspecified hyperlipidemia type (ICD-10 - E78.5) No change in her medications was made today. Comprehensive blood work with fasting lipids has been ordered prior to her next visit. 11/20/2023 Coronary atherosclerosis due to calcified coronary lesion (ICD-10 - I25.84) She has had no angina or chest pain since her last visit. No change in her regimen was made. She has seen a general manager farm who thinks the pain comes from her lungs. 11/20/2023 Hyperlipidemia, unspecified hyperlipidemia type (ICD-10 - E78.5) No change in her medications was made today. Comprehensive blood work with fasting lipids has been ordered prior to her next visit. 12/18/2023 Hyperlipidemia, unspecified hyperlipidemia type (ICD-10 - E78.5) No change in her medications was made today. Comprehensive blood work with fasting lipids has been ordered prior to her next visit. 12/18/2023 Asthma, unspecified asthma severity, unspecified whether complicated, unspecified whether persistent (ICD-10 - J45.909) She was breathing comfortably today and her asthmatic bronchitis has resolved. She was encouraged to call me if it worsens. 01/14/2024 Overweight (ICD-10 - E66.3) We reviewed her diet and nutrition today. I recommended weight loss at a rate of one half of a pound per week through a diet restricted in fat calories and sodium combined with regular physical activity.A change was made in the dose of the Wegovy. She will now take 2.4 mg weekly. 01/14/2024 Hyperlipidemia, unspecified hyperlipidemia type (ICD-10 - E78.5) No change in her medications was made today. Comprehensive blood work with fasting lipids has been ordered prior to her next visit. 01/28/2024 Hyperlipidemia, unspecified hyperlipidemia type (ICD-10 - E78.5) No change in her medications was made today. Comprehensive blood work with fasting lipids has been ordered prior to her next visit. 09/24/2023 Asthma, unspecified asthma severity, unspecified whether complicated, unspecified whether persistent (ICD-10 - J45.909) She was breathing comfortably today and her asthmatic bronchitis has resolved. She was encouraged to call me if it worsens. 10/23/2023 Asthma, unspecified asthma severity, unspecified whether complicated, unspecified whether persistent (ICD-10 - J45.909) She was breathing comfortably today and her asthmatic bronchitis has resolved. She was encouraged to call me if it worsens. 11/20/2023 Other obesity due to excess calories (ICD-10 - E66.09) Her body mass index is now in the overweight range. The Wegovy was increased to 1.0 mg by subcutaneous injection weekly. 12/18/2023 History of depressio n (ICD-10 - Z86.59) She says today that she has stopped all of her medications. It was unclear if she was taking the antidepressants. I strongly recommended she take them. I will arrange close follow-up with her. She adamantly denied any suicidal thoughts or desire to hurt himself. 01/14/2024 Asthma, unspecified asthma severity, unspecified whether complicated, unspecified whether persistent (ICD-10 - J45.909) She was breathing comfortably today and her asthmatic bronchitis has resolved. She was encouraged to call me if it worsens. 09/24/2023 Atypical squamous cells of undetermined significance on cytologic smear of cervix (ASC-US) (ICD-10 - R87.610) Her previous physicians records indicate a history of positivity for HPV and ACUS. She has an upcoming appointment and I will attempt to find old records. 10/23/2023 History of depressio n (ICD-10 - Z86.59) She says today that she has stopped all of her medications. It was unclear if she was taking the antidepressants. I strongly recommended she take them. I will arrange close follow-up with her. She adamantly denied any suicidal thoughts or desire to hurt himself. 11/20/2023 HTN (hypertension) (ICD-10 - I10) Her blood pressure is in the normal range today. No change in her regimen was recommended. 12/18/2023 Former smoker (ICD-1 0 - Z87.891) She seems highly motivated not to smoke. We formulated a plan to prevent relapse in times of stress and illness. 01/14/2024 History of depressio n (ICD-10 - Z86.59) She says today that she has stopped all of her medications. It was unclear if she was taking the antidepressants. I strongly recommended she take them. I will arrange close follow-up with her. She adamantly denied any suicidal thoughts or desire to hurt himself. 09/24/2023 Osteopenia, unspecified location (ICD-10 - M85.80) She will have a bone density every 2 years. I recommended 500 mg of calcium per day orally with a multiple vitamin. She says she has been doing this. She denies any new bone pain in her back. 10/23/2023 Cervical high risk human papillomavirus (HPV) DNA test positive (ICD-10 - R87.810) She will remain under the care of her machine repairman. 11/20/2023 Former smoker (ICD-1 0 - Z87.891) She seems highly motivated not to smoke. We formulated a plan to prevent relapse in times of stress and illness. 12/18/2023 Overweight (ICD-10 - E66.3) We reviewed her diet and nutrition today. I recommended weight loss at a rate of one half of a pound per week through a diet restricted in fat calories and sodium combined with regular physical activity.No change was made in the dose of the Wegovy. 01/14/2024 Former smoker (ICD-1 0 - Z87.891) She seems highly motivated not to smoke. We formulated a plan to prevent relapse in times of stress and illness. 09/24/2023 Primary osteoarthritis involving multiple joints (ICD-10 - M15.0) She has finished with the orthopedic surgeon and will now see the aircraft refueller. She will take the meloxicam. 10/23/2023 Primary osteoarthritis involving multiple joints (ICD-10 - M15.0) She has finished with the orthopedic surgeon and will now see the aircraft refueller. She will take the meloxicam. 11/20/2023 History of depressio n (ICD-10 - Z86.59) She says today that she has stopped all of her medications. It was unclear if she was taking the antidepressants. I strongly recommended she take them. I will arrange close follow-up with her. She adamantly denied any suicidal thoughts or desire to hurt himself. 01/14/2024 Primary osteoarthritis involving multiple joints (ICD-10 - M15.0) She has finished with the orthopedic surgeon and will now see the aircraft refueller. She will take the meloxicam. 09/24/2023 Overweight (ICD-10 - E66.3) We reviewed her diet and nutrition today. I recommended weight loss at a rate of one half of a pound per week through a diet restricted in fat calories and sodium combined with regular physical activity. 01/14/2024 Coronary atherosclerosis due to calcified coronary lesion (ICD-10 - I25.84) She has had no angina or chest pain since her last visit. No change in her regimen was made. She has seen a general manager farm who thinks the pain comes from her lungs. 09/24/2023 Sciatica of right side (ICD-10 - M54.31) Her back pain is significantly better than recently. She will continue on current treatment. 01/14/2024 HTN (hypertension) (ICD-10 - I10) Her blood pressure is in the normal range today. No change in her regimen was recommended. 09/24/2023 Former smoker (ICD-1 0 - Z87.891) She seems highly motivated not to smoke. We formulated a plan to prevent relapse in times of stress and illness. 09/24/2023 Mycobacterium avium infection (ICD-10 - A31.0) She is refusing to take her antibiotics for unclear reasons. She will proceed to the CT scan and the pulmonary building performance consultant, Dr. Beltre, and we will reevaluate the status of her infection. I strongly advised her to finish the antibiotics. 09/24/2023 Other obesity due to excess calories (ICD-10 - E66.09) Since her last visit she has gained 19 pounds and her body mass index is 30. I reviewed her diet and nutrition. We made a plan to lose weight at a rate of one half of a pound per week through a diet restricted in fat calories and sodium combined with regular physical activity. Plan Of Treatment Pending Test Test Name Order Date PROFILE, FASTING (COMPREHENSIVE METABOLI C) 12/01/2020 PROFILE, FASTING (COMPREHENSIVE METABOLI C) 07/15/2021 PROFILE, FASTING (COMPREHENSIVE METABOLI C) 12/09/2018 PROFILE, FASTING (COMPREHENSIVE METABOLI C) 04/12/2021 PROFILE, FASTING (COMPREHENSIVE METABOLI C) 02/02/2022 PROFILE, FASTING (COMPREHENSIVE METABOLI C) 06/16/2019 PROFILE, RANDOM (COMPREHENSIVE METABOLIC ) 04/14/2020 LIPID PANEL 06/16/2019 LIPID PANEL 07/15/2021 LIPID PANEL 12/09/2018 GGT 04/14/2020 CBC w DIFF 12/01/2020 CBC w DIFF 06/16/2019 CBC w DIFF 07/15/2021 CBC w DIFF 12/09/2018 CBC w DIFF 04/12/2021 CBC w DIFF 04/14/2020 CBC w DIFF 02/02/2022 Lipid Panel 04/12/2021 Lipid Panel 02/02/2022 Lipid Panel 12/01/2020 CA stress test 02/02/2022 CA stress test 03/09/2022 Insurance Providers Payer Name Payer Address Payer Phone Subscriber Number Group Number Insured Name Patient Relationship to Insured Coverage Start Date Coverage End Date MEDICARE NGS [address] [place] [place] [phone] [id number] May Self - patient is the insured [facility] [address] [place], [place] [id number] [phone] [id number] [place] May Self - patient is the insured Medical (General) History Medical History History ICD Code Anxiety F41.9 PTSD (post-traumatic stress disorder) F4 3.10 asthma osteoarthritis, 2018, right hip and righ t knee, after surgery mixed hyperlipidemia osteopenia depression history of trochanteric bursitis history of injections in the spine for p ain former smoker 2017 ASCUS, HPV +, abnormal Pap smear declines to undergo colonoscopy Bilateral necrotizing cavitary pneumonia [facility] November 2021 Surgical History Surgery Date(Month/Year) right knee surgery x3 2017 right shoulder surgery Gallbladder Left lung Bx 2021 right humerus fracture, fall 05/2022 right wrist colle's fracture, fall No history Hospitalization History Reason Date(Month/Year) Hypertension 03/2019 No history
--- OUTSIDE RECORDS SUMMARY | 2024-03-28 15:44 | XMS_ITS | Clinical Summary ---
Author Organization [address] [facility] Address [address] [place] [address] Phone Care Team Providers Care Outpatient Coding Specialist Name Role Phone Ronnell Daniels MD Primary Care Provider [phone] Allergies Active Allergy Reactions Criticality Noted Date Comments Coconut Unknown Low 11/25/2021 Egg Unknown 11/29/2021 Eggshell Membrane Unknown Low 02/11/2020 Influenza Vac Typ A,B Surf Ant 03/10/2022 Influenza Virus Vaccines Unknown Low 11/25/2021 Other 03/10/2022 Coconut Poultry 02/11/2020 Allergic to raw poultry Medications Medication Sig Dispensed Refills Start Date End Date Status meloxicam (MOBIC) 15 mg tablet Take 1 tablet (15 mg total) by mouth 1 (one) time each day if needed for mild pain. 08/19/2022 Active acetaminophen (TYLENOL) 500 mg tablet Take 2 tablets (1,000 mg total) by mouth 3 (three) times a day. 01/25/2020 Active mometasone HFA (Asmanex HFA) 100 mcg/actuation HFA aerosol inhaler inhaler Inhale 2 puffs by mouth 1 (one) time each day. 08/11/2022 Active albuterol HFA (PROAIR HFA ; PROVENTIL HFA ; VENTOLIN HFA) 90 mcg/actuation inhaler Inhale 2 puffs by mouth every 6 (six) hours if needed for wheezing or shortness of breath. 08/11/2022 Active nitroglycerin (NITROSTAT) 0.[address] 1 tablet (0.3 mg total) under the tongue every 5 (five) minutes if needed for chest pain. 03/29/2022 Active acetaminophen (TYLENOL 8 HOUR) 650 mg 8 hr tablet Take 1 tablet (650 mg total) by mouth every 8 (eight) hours if needed for mild pain, moderate pain or headaches. Active diphenhydrAMINE-emilee taminophen (TYLENOL PM) 25-500 mg per tablet Take 1 tablet by mouth at bedtime as needed for sleep. Active atorvastatin (LIPITOR) 40 mg tablet Take 1 tablet (40 mg total) by mouth 1 (one) time each day. 03/01/2022 Active escitalopram (LEXAPRO) 10 mg tablet Take 1 tablet (10 mg total) by mouth 1 (one) time each day. 01/13/2020 Active buPROPion XL (WELLBUTRIN XL) 300 mg 24 hr tablet Take 1 tablet (300 mg total) by mouth 1 (one) time each day. 01/25/2020 Active LORazepam (ATIVAN) 1 mg tablet Take 1 tablet (1 mg total) by mouth 3 (three) times a day. Active amoxicillin-clavula dominique (AUGMENTIN) 875-125 mg per tablet Take 1 tablet by mouth. 12/02/2021 Active azithromycin (ZITHROMAX) 250 mg tablet Take 2 tab 1st day. Take 1 tab daily day 2 to 5. 07/31/2023 Active fluticasone propion-salmeteroL (ADVAIR HFA) 230-21 mcg/actuation inhaler Inhale 2 puffs by mouth. 01/08/2023 Active guaiFENesin (MUCINEX) 600 mg 12 hr tablet Take 1 tablet (600 mg total) by mouth. 12/02/2021 Active omeprazole (PriLOSEC) [address] capsule Take 1 capsule (20 mg total) by mouth. Active senna-docusate (PERICOLACE) 8.6-50 mg per tablet Take by mouth. 06/16/2022 Active tiZANidine (ZANAFLEX) 4 mg tablet 12/08/2019 Active albuterol HFA (PROAIR HFA ; PROVENTIL HFA ; VENTOLIN HFA) 90 mcg/actuation inhaler Inhale by mouth. Active atorvastatin (LIPITOR) 10 mg tablet Take 1 tablet (10 mg total) by mouth. Active LORazepam (ATIVAN) 0.5 mg tablet Take 2 tablets (1 mg total) by mouth. 12/02/2021 Active oxycodone HCl,terephth/aspiri n (OXYCODONE QHT-LNYWXQBIY-DQJ ORAL) Take by mouth. 06/16/2022 Active Wegovy 2.4 mg/0.75 mL injection pen Inject 2.4 mg under the skin every 7 (seven) days. 02/08/2024 Active fluticasone propion-salmeteroL (Advair HFA) 230-21 mcg/actuation inhalerIndications: COPD with asthma ([facility]/HCC) Inhale 2 puffs by mouth 2 (two) times a day. Rinse mouth with water after use to reduce aftertaste and incidence of candidiasis. Do not swallow. 1 each 12 02/19/2024 02/18/2025 Active fluticasone propion-salmeteroL (Advair HFA) 230-21 mcg/actuation inhalerIndications: COPD with asthma ([facility]) Inhale 2 puffs by mouth 2 (two) times a day. Rinse mouth with water after use to reduce aftertaste and incidence of candidiasis. Do not swallow. 1 each 02/21/2024 02/20/2025 Active Active Problems Problem Noted Date Diagnosed Date Gallbladder attack 04/23/2023 HTN (hypertension) 03/10/2022 Triple vessel coronary artery disease 03/10/2022 Vascular calcification 03/10/2022 Mixed hyperlipidemia 03/10/2022 COVID-19 03/10/2022 Encounters Date Type Department Care Team Description 02/21/2024 Telephone Pulmonolgy - [place] [address] [address] Meseret Maldonado MD Medication Problem 02/19/2024 11:15 AM EST Office Visit Pulmonolgy [facility] [address] [address] Meseret Maldonado MD COPD with asthma ([facility]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) 01/30/2024 1:00 PM EST Office Visit Infectious Disease - [place] [address] [address] Zuleyma Hanna MD MAI (mycobacterium avium-intracellulare) ([facility]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); Dysphagia, unspecified type from Last 3 Months Immunizations Name Administration Dates Next Due Zoster recombinant (Shingrix) 19yo and older ,12/11/2019 Surgical History Surgery Date Site/Laterality Comments CHOLECYSTECTOMY PROCEDURE: CA LAPAROSCOPY SURG CHOLECYSTECTOMY KNEE SURGERY PROCEDURE: HISTORICAL KNEE SURGERY; COMMENT: X3 SHOULDER SURGERY PROCEDURE: HISTORICAL SHOULDER SURGERY OTHER SURGICAL HISTORY PROCEDURE: HISTORY OTHER; COMMENT: Gallbladder Medical History Medical History Date Comments Depression DX:Depression Anxiety DX:Anxiety Arthritis DX:Arthritis Back pain DX:Back pain Hyperlipidemia DX:Hyperlipidemi a Gallbladder attack DX:Gallbladde r attack; COMMENT: With surgery in January 2020 PTSD (post-traumatic stress disorder) 03/10/2022 DX:PTSD (post-traumatic stress disorder) Asthma DX:Asthma Osteoarthritis DX:Osteoarthriti s Osteopenia DX:Osteopenia Trochanteric bursitis DX:Trochan teric bursitis Sepsis (CMS/HCC) DX:Sepsis (HCC) Necrotizing pneumonia (CMS/HCC) DX:Necrotizing pneumonia (HCC) DVT (deep venous thrombosis) (CMS/HCC) DX:DVT (deep venous thrombosis) (HCC) Essential hypertension DX:Essent ial hypertension Family History Medical History Relation Name Comments Heart attack Father Heart attack Mother Relation Name Status Comments Father Mother Social History Tobacco Use Types Packs/Day Years Used Date Smoking Tobacco: Former Smokeless Tobacco: Never Tobacco Cessation:Counseling Given: Not Answered Alcohol Use Standard Drinks/Week Comments No 0 (1 standard drink = 0.6 oz pur e alcohol) Sex and Gender Information Value Date Recorded Sex Assigned at Female 03/10/2024 9:45 AM EST Gender Identity Female 03/10/2024 9:45 AM EST Sexual Orientation Straight 03/10/2024 9: 45 AM EST Job Start Date Occupation Industry Not on file Not on file Not on file Obstetrics History Last Filed Vital Signs Vital Sign Reading Time Taken Comments Blood Pressure 100/57 02/19/2024 11:30 AM EST Pulse 89 02/19/2024 11:30 AM EST Temperature 36.1 ??C (97 ??F) 02/19/2024 11:30 AM EST Respiratory Rate 19 02/19/2024 11:30 AM EST Oxygen Saturation 100% 02/19/2024 11:30 AM EST Inhaled Oxygen Concentration - - Weight 64.9 kg (143 lb) 02/19/2024 11:30 AM EST Height 157.5 cm (5' 2 ) 02/19/2024 11:30 AM EST Body Mass Index 26.16 02/19/2024 11:30 AM EST Plan of Treatment Upcoming Encounters Date Type Department Care Team (Late st Contact Info) Description 04/04/2024 4:00 PM EST Appointment [facility] CT Scan [address] [place] [address] 04/29/2024 1:30 PM EDT Office Visit Infectious Disease - [place] [address] [facility] [address] [place] [address] Zuleyma Hanna MD [address] [facility] [address] [place] [address] Health Maintenance Due Date Last Done Comments Breast Cancer Screening 1955 Pneumococcal Vaccine: 65+ Years (1 of 2 - PCV) 06/25/1961 DTaP,Tdap,and Td Vaccines (1 - Tdap) 06/25/1974 RSV Immunization Patients 60 + Years Old (1 - Risk 60-74 years 1-dose series) 2015 Cholesterol Screening (Lipid Panel) 01/28/2022 Colorectal Cancer Screening: Colonoscopy 01/28/2022 Depression Screening 01/28/2022 Falls Risk Assessment 01/28/2022 Hepatitis C Screening 01/28/2022 Medicare Annual Wellness Visit 01/28/2022 Osteoporosis Screening (Bone Density Screening) 01/28/2022 Social Influencers of Health Screening 01/28/2022 Hypertension/CHF/CAD Annual BMP Blood Test 03/20/2023 03/01/2022 COVID-19 Vaccine (1 - 2023-2 5 season) 2023 Influenza Vaccine (#1) 2023 Zoster Vaccines Completed 02/11/2020, 12/11/2019 HIB Vaccines Aged Out No longer eligi ble based on patient's age to complete this topic HPV Vaccines Aged Out No longer eligi ble based on patient's age to complete this topic Hepatitis A Vaccines Aged Out No long er eligible based on patient's age to complete this topic Hepatitis B Vaccines Aged Out No long er eligible based on patient's age to complete this topic IPV Vaccines Aged Out No longer eligi ble based on patient's age to complete this topic MMR Vaccines Aged Out No longer eligi ble based on patient's age to complete this topic Meningococcal ACWY Vaccine Aged Out N o longer eligible based on patient's age to complete this topic RSV Immunization Patients Under 20 months Aged Out No longer eligible b ased on patient's age to complete this topic Varicella Vaccines Aged Out No longer eligible based on patient's age to complete this topic Procedures Procedure Name Priority Date/Time Associated Diagnosis Comments ANNUAL BMP BLOOD TEST Routine 03/01/2022 from Last 3 Months or Most Recently Relevant to Health Maintenance Results * Annual BMP Blood Test (03/01/2022) Annual BMP Blood Test Abstracted Historical Provider MD JIMY Mckinnon from Last 3 Months or Most Recently Relevant to Health Maintenance Care Teams Outpatient Coding Specialist Relationship Specialty Start Date End Date Ronnell Daniels MD [address] [address] PCP - General 04/11/19
--- OUTSIDE RECORDS SUMMARY | 2024-03-28 15:45 | XMS_ITS ---
Author Organization Ronnell Daniels III, MD Address [address] [place] [address] [place] [address] Care Team Providers Care Parts Back Counter Man Name Role Phone Ronnell Daniels Primary Care Provider [phone] REASON FOR VISIT Rx Medications Medication SIG (Take, Route, Frequency, Duration) Notes Start Date End Date Status Wegovy 2.4 MG/0.75ML 0.75 mL Subcutaneou s weekly for 90 days disp 4 pens 01/14/2024 01/22/2025 Active Social History Sex Assigned At : Social History Observation Description Sex Assigned At Female Encounters Encounter Location Date Provider Diagnosis Ronnell Daniels III, MD [address] [place] [address] [place] [phone] 01/28/2024 Ronnell Daniels Hyperlipidemia, unspecified hyperlipidemia type E78.5 Assessments Encounter Date Diagnosis (ICD Code) Assessment Notes Treat ment Notes Treatment Clinical Notes 01/28/2024 Hyperlipidemia, unspecified hyperlipidemia type (ICD-10 - E78.5) No change in her medications was made today. Comprehensive blood work with fasting lipids has been ordered prior to her next visit. Plan Of Treatment Medication Medication Name Sig Start Date Stop Date Notes Wegovy 2.4 MG/0.75ML 0.75 mL Subcutaneou s weekly for 90 days 01/14/2024 01/22/2025 disp 4 pens Progress Notes * GERMÁN MENDIOLAMay DDOB:08/1955 (68 yo F)Acc No.[id number]:01/28/2024 Patient:PAUL MENDIOLA, May :1955???Age:68 Y???Sex:Female Address:[address] [place] [address], [id number] * Refills? Refill Wegovy Solution Auto-injector, 2.4 MG/0.75ML, Subcutaneous, 12, 0.75 mL, weekly, 90 days, Refills=3 * true * Date:? Generated for Heather haq/Stella/Azransmitting on:?03/28/2024 03:44 PM EST
--- OUTSIDE RECORDS SUMMARY | 2024-03-28 15:45 | XMS_ITS ---
Author Organization Ronnell Daniels III, MD Address [address] [place] [address] [address] [place] [address] Care Team Providers Care Rug Backing Stenciler Name Role Phone Ronnell Daniels Primary Care Provider Allergies Allergen (clinical drug ingredient) Drug/Non Drug Allergy documented on EMR Reaction Allergy Type Onset Date Status raw poultry (uncoded) Unknown Allergy Active Eggs or Egg-derived Products Unknown Drug Allergy Active Coconut Flavor Unknown Drug Allergy Ac tive REASON FOR VISIT Weight loss program, Wegovy injections weekly, Hyperlipidemia, Asthma, Depression, Osteopenia Medications Medication SIG (Take, Route, Frequency, Duration) Notes Start Date End Date Status Asmanex HFA Active Albuterol Sulfate HFA 108 (90 Base) MCG/ACT USE 2 INHALATIONS EVERY 4 HOURS NEEDED Active Atorvastatin Calcium 10 mg TAKE 1 TABLET DAILY Active Meloxicam 15 mg TAKE 1 TABLET DAILY Active tiZANidine HCl 4 mg 1 tablet Orally thre e times a day Active Wegovy 2.4 MG/0.75ML 0.75 mL Subcutaneou s weekly for 28 days disp 4 pens 01/14/2024 12/15/2024 Active Ibuprofen 800 MG 1 tablet with food o r milk as needed Orally every 8 hrs Active Wellbutrin SR 150 MG 1 tablet Orally Twi ce a day Active LORazepam 1 MG 1 tablet at bedtime as needed Orally Twice a day 08/19/2019 Active Wegovy 1 MG/0.5ML 0.5 mL Subcutaneous weekly 11/20/2023 Active Social History Tobacco Use: Social History Observation Description Date Details (start date - stop date) Former Smoker NA - NA Sex Assigned At : Social History Observation Description Sex Assigned At Female Tobacco Use/Smoking Question Answer Notes Patient is a former smoker How long has it been since you last smoked? > 10 years Additional Findings: Tobacco Non-User Ex-cigaret te smoker Vital Signs Temperature 97.5 degrees Fahrenheit 01/14/20 24 Blood pressure systolic 135 mm Hg 01/14/20 24 Blood pressure diastolic 80 mm Hg 024 Heart Rate 88 /min 01/14/2024 Height 61 in 01/14/2024 Weight 143 lbs 01/14/2024 BMI 27.02 kg/m2 01/14/2024 Encounters Encounter Location Date Provider Diagnosis Ronnell Daniels III, MD [address] [place] [address] [address] [place] [address] 01/14/2024 Ronnell Daniels Hyperlipidemia, unspecified hyperlipidemia type E78.5 ; Overweight E66.3 ; Asthma, unspecified asthma severity, unspecified whether complicated, unspecified whether persistent J45.909 ; History of depression Z86.59 ; Former smoker Z87.891 ; Primary osteoarthritis involving multiple joints M15.0 ; Coronary atherosclerosis due to calcified coronary lesion I25.84 and HTN (hypertension) I10 Assessments Encounter Date Diagnosis (ICD Code) Assessment Notes Treat ment Notes Treatment Clinical Notes 01/14/2024 Hyperlipidemia, unspecified hyperlipidemia type (ICD-10 - E78.5) No change in her medications was made today. Comprehensive blood work with fasting lipids has been ordered prior to her next visit. 01/14/2024 Overweight (ICD-10 - E66.3) We reviewed her diet and nutrition today. I recommended weight loss at a rate of one half of a pound per week through a diet restricted in fat calories and sodium combined with regular physical activity.A change was made in the dose of the Wegovy. She will now take 2.4 mg weekly. 01/14/2024 Asthma, unspecified asthma severity, unspecified whether complicated, unspecified whether persistent (ICD-10 - J45.909) She was breathing comfortably today and her asthmatic bronchitis has resolved. She was encouraged to call me if it worsens. 01/14/2024 History of depressio n (ICD-10 - Z86.59) She says today that she has stopped all of her medications. It was unclear if she was taking the antidepressants. I strongly recommended she take them. I will arrange close follow-up with her. She adamantly denied any suicidal thoughts or desire to hurt himself. 01/14/2024 Former smoker (ICD-1 0 - Z87.891) She seems highly motivated not to smoke. We formulated a plan to prevent relapse in times of stress and illness. 01/14/2024 Primary osteoarthritis involving multiple joints (ICD-10 - M15.0) She has finished with the orthopedic surgeon and will now see the traffic personnel supervisor. She will take the meloxicam. 01/14/2024 Coronary atherosclerosis due to calcified coronary lesion (ICD-10 - I25.84) She has had no angina or chest pain since her last visit. No change in her regimen was made. She has seen a music cataloguer who thinks the pain comes from her lungs. 01/14/2024 HTN (hypertension) (ICD-10 - I10) Her blood pressure is in the normal range today. No change in her regimen was recommended. Plan Of Treatment Medication Medication Name Sig Start Date Stop Date Notes Asmanex HFA Albuterol Sulfate HFA 108 (90 Base) MCG/ACT USE 2 INHALATIONS EVERY 4 HOURS NEEDED Atorvastatin Calcium 10 mg TAKE 1 TABLET DAILY Meloxicam 15 mg TAKE 1 TABLET DAILY tiZANidine HCl 4 mg 1 tablet Orally thre e times a day Wegovy 2.4 MG/0.75ML 0.75 mL Subcutaneou s weekly for 28 days 01/14/2024 12/15/2024 disp 4 pens Ibuprofen 800 MG 1 tablet with food o r milk as needed Orally every 8 hrs Wellbutrin SR 150 MG 1 tablet Orally Twi ce a day LORazepam 1 MG 1 tablet at bedtime as needed Orally Twice a day 08/19/2019 Wegovy 1 MG/0.5ML 0.5 mL Subcutaneous weekly 11/20/2023 Next Appt Details Follow Up: 2 Months, In two months, Reason: OV, Regular check-up Progress Notes * GERMÁNMayDOB:1955 ([age] yo F)Acc No.[id number]:01/14/2024 Progress Notes Patient:PAULMay Provider:?Ronnell Daniels MD :1955???Age:68 Y???Sex:Female D ate:01/14/2024 Address:[address] [place] [address] [place] [id number] Subjective: * Chief Complaints: * ???Weight loss programWegovy injections weeklyHyperlipidemiaAsthmaDepressionOsteopenia * HPI: ???COVID-19 Screening:?Questions?Have you experienced fever, chills, cough, sore throat, shortness of breath, difficulty breathing, muscle aches, loss of taste or smell??No ?Have you been exposed to the virus within the last 10 days??No ?Have you travelled internationally in the last 10 days??No ?Have you been exposed to COVID-19 in the past??No ???:? The patient, a 68-year-old female, has been on a medication regimen for an unspecified condition. She has been taking 1.5 milligrams of her medication for the past two months and wishes to increase her dosage to 2.0 milligrams. She has experienced a weight loss of 19 lbs, from 162 lbs to 143 lbs, since September. The patient has not reported any new symptoms or changes in her health status. * ROS:?General/Constitutional:?pain?Arthritis both knees, otherwise only normal aches and pains.?Chills?denies.?Fatigue?admits.?Fever?denies.?Admits?Weight loss.?ENT:?Decreased hearing?denies.?Respiratory:?Cough?denies.?Cardiovascular:?Chest pain with exertion?denies.?Dyspnea on exertion?denies.?Shortness of breath?denies.?Gastrointestinal:?Constipation?occasional.?Decreased appetite?denies.?Diarrhea?denies.?Heartburn?denies.?Nausea?denies.?Rectal bleeding?denies.?Vomiting?denies.?Hematology:?bruising?denies.?petechiae?denies.?Swollen glands?none have been noted.?Genitourinary:?Frequent urination?at night.?Musculoskeletal:?Muscle aches?denies.?Painful joints?denies.?Sciatica?denies.?Weakness?denies.?Skin:?Itching?denies.?Rash?denies.?Skin lesion(s)?denies.?Neurologic:?Difficulty speaking?denies.?Dizziness?denies.?Headache?denies.?Low back pain?denies.?Psychiatric:?Depressed mood?which is mild.? * Medical History:? * Surgical History:?right knee surgery x3 2018right shoulder surgery Gallbladder Left lung Bx 2right humerus fracture, fall 05/2022right wrist colle's fracture, fall 05/2022No history * Hospitalization/Major Diagno stic Procedure:?Hypertension 03/2019No history * Family History:?Father: dece ased 70 yrs, Complications of paraplegia from an automobile accident.?Mother: alive 82 yrs, Coronary artery disease, blood disorder, colon cancer, diagnosed with CVD, Cancer.?3 brother(s) , 1 sister(s) - healthy. .? Her 3 brothers and her sister are healthy and well. She is disabled on Social Security. 4. Osteoarthritis.she is not aware of any family history of substance use disorder or mental illness. * Social History:?Tobacco Use:?Tobacco Use/Smoking?Patient is a?former smoker ?How long has it been since you last smoked??> 10 years ?Additional Findings: Tobacco Non-User?Ex-cigarette smoker ???She is disabled on Social Security for osteoarthritis. She is a former smoker. She has been to her second , Jerman, for 18 years. She has no children. 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 Her cheese packer is at [facility]. * Medications:?TakingIbuprofen 800 MG Tablet 1 tablet with food or milk as needed Orally every 8 hrs Wellbutrin SR 150 MG Tablet Extended Release 12 Hour 1 tablet Orally Twice a day LORazepam 1 MG Tablet 1 tablet at bedtime as needed Orally Twice a day Asmanex HFA Albuterol Sulfate HFA 108 (90 Base) MCG/ACT Aerosol Solution USE 2 INHALATIONS EVERY 4 HOURS NEEDED Atorvastatin Calcium 10 mg Tablet TAKE 1 TABLET DAILY Meloxicam 15 mg Tablet TAKE 1 TABLET DAILY tiZANidine HCl 4 mg Tablet 1 tablet Orally three times a day Wegovy 1 MG/0.5ML Solution Auto-injector 0.5 mL Subcutaneous weekly Medication List reviewed and reconciled with the patientTaking Ibuprofen 800 MG Tablet 1 tablet with food or milk as needed Orally every 8 hrs Taking Wellbutrin SR 150 MG Tablet Extended Release 12 Hour 1 tablet Orally Twice a day Taking LORazepam 1 MG Tablet 1 tablet at bedtime as needed Orally Twice a day Taking Asmanex HFA Taking Albuterol Sulfate HFA 108 (90 Base) MCG/ACT Aerosol Solution USE 2 INHALATIONS EVERY 4 HOURS NEEDED Taking Atorvastatin Calcium 10 mg Tablet TAKE 1 TABLET DAILY Taking Meloxicam 15 mg Tablet TAKE 1 TABLET DAILY Taking tiZANidine HCl 4 mg Tablet 1 tablet Orally three times a day Taking Wegovy 1 MG/0.5ML Solution Auto-injector 0.5 mL Subcutaneous weekly Medication List reviewed and reconciled with the patient * Allergies:?Coconut Flavor: A llergyEggs or Egg-derived Products: Allergyraw poultryno[Allergies Verified] Objective: * Vitals:?Ht: 61, Wt:143, BMI: 27.02, BP:135/80, HR:88, Temp:97.5, Wt-k.86. * Examination: ???General Examination: ?GENERAL APPEARANCE:?pleasant, well nourished, well developed, in no acute distress, calm and relaxed, overweight, woman.?HEAD:?atraumatic, normocephalic.?EYES:?eomi, perrla, anicteric, conjugate.?EARS:?normal.?NOSE:?septum intact.?ORAL CAVITY:?normal, unremarkable.?NECK/THYROID:?no jugular venous distention, no carotid bruit, thyroid normal.?LYMPH NODES:?no enlarged lymph nodes,spleen normal.?SKIN:?no suspicious lesions, anicteric.?HEART:?no clicks, gallops, murmurs, or rubs, regular rhythm, S1, S2 normal, no s3, or vascular bruits.?LUNGS:?clear to auscultation .?BREASTS:?Not examined.?ABDOMEN:?bowel sounds normal, no ascites, no organomegaly, no mass, overweight.?RECTAL EXAM:?not examined.?MUSCULOSKELETAL:?extremities unremarkable, no clubbing, cyanosis or edema.?PERIPHERAL PULSES:?normal.?NEUROLOGIC:?alert and oriented, cranial nerves 2-12 grossly intact, deep tendon reflexes 2+ symmetrical, motor strength normal upper and lower extremities, sensory exam intact.?PSYCH:?alert, oriented, anxious appearing, mood depressed.? Assessment: * Assessment: 1.?Overweight - E66.3 (Prima ry)???Notes :We reviewed her diet and nutrition today. I recommended weight loss at a rate of one half of a pound per week through a diet restricted in fat calories and sodium combined with regular physical activity.A change was made in the dose of the Wegovy. She will now take 2.4 mg weekly.???2.?Hyperlipidemia, unspecified hyperlipidemia type - E78.5???Notes :No change in her medications was made today. Comprehensive blood work with fasting lipids has been ordered prior to her next visit.???3.?Asthma, unspecified asthma severity, unspecified whether complicated, unspecified whether persistent - J45.909???Notes :She was breathing comfortably today and her asthmatic bronchitis has resolved. She was encouraged to call me if it worsens.???4.?History of depression - Z86.59???Notes :She says today that she has stopped all of her medications. It was unclear if she was taking the antidepressants. I strongly recommended she take them. I will arrange close follow-up with her. She adamantly denied any suicidal thoughts or desire to hurt himself.???5.?Former smoker - Z87.891???Notes :She seems highly motivated not to smoke. We formulated a plan to prevent relapse in times of stress and illness.???6.?Primary osteoarthritis involving multiple joints - M15.0???Notes :She has finished with the orthopedic surgeon and will now see the traffic personnel supervisor. She will take the meloxicam.???7.?Coronary atherosclerosis due to calcified coronary lesion - I25.84???Notes :She has had no angina or chest pain since her last visit. No change in her regimen was made. She has seen a music cataloguer who thinks the pain comes from her lungs.???8.?HTN (hypertension) - I10???Notes :Her blood pressure is in the normal range today. No change in her regimen was recommended.??? Plan: * Treatment: 2.?Hyperlipidemia, unspecifi ed hyperlipidemia type? Continue Wellbutrin SR Tablet Extended Release 12 Hour, 150 MG, 1 tablet, Orally, Twice a day;?Continue LORazepam Tablet, 1 MG, 1 tablet at bedtime as needed, Orally, Twice a day;?Continue Asmanex HFA;?Start Wegovy Solution Auto-injector, 2.4 MG/0.75ML, 0.75 mL, Subcutaneous, weekly, 28 days, 4, Refills 11, Notes to Pharmacist: disp 4 pens.?? 3.?Others? Continue Ibuprofen Tablet, 800 MG, 1 tablet with food or milk as needed, Orally, every 8 hrs;?Continue Albuterol Sulfate HFA Aerosol Solution, 108 (90 Base) MCG/ACT, USE 2 INHALATIONS EVERY 4 HOURS NEEDED;?Continue Atorvastatin Calcium Tablet, 10 mg, TAKE 1 TABLET DAILY;?Continue Meloxicam Tablet, 15 mg, TAKE 1 TABLET DAILY;?Continue tiZANidine HCl Tablet, 4 mg, 1 tablet, Orally, three times a day.?? * Procedure Codes:? * Preventive Medicine:? ??Counseling:?Care goal follow-up plan:?Counseling for abnormal BMI given?Yes ?Above Normal BMI Follow-up?Dietary management education, guidance, and counseling, Dietary needs education, Exercise promotion: strength training, Exercise promotion: stretching, Feeding regime, Giving encouragement to exercise, Lifestyle education regarding diet, Nutrition / feeding management, Nutrition therapy, Prescribed activity/exercise education, Prescribed diet education, Prescribed dietary intake, Special diet education, Weight monitoring , Intervention, Order not done: Medical or Other reason not done ?Smoking/Tobacco Use?Patient counseled on the dangers of tobacco use and urged to quit.?01/14/2024 * Follow Up:?2 Months, In two months (Reason: OV, Regular check-up) * Images: * Sign off status: Completed true * Provider:?Ronnell Daniels MD Date:?12/21 Generated for Heather haq/Stella/Annesmitting on:?03/28/2024 03:45 PM EST History and Physical Notes * HPI (History of Present Illness) Category Sub-Category Detail Notes COVID-19 Screening Questions Have you had any new onset fever, chills, cough, congestion, sore throat, shortness of breath, muscle aches?: No Have you been exposed to the virus withi n the last 10 days?: No Have you travelled internationally in last 10 days?: No Have you been exposed to COVID-19 in the past?: No Examination Category Sub-Category Detail Notes General Examination GENERAL APPEARANCE: pleasant , well nourished, well developed, in no acute distress, calm and relaxed, overweight, woman HEAD: atraumatic, normocep halic EYES: eomi, perrla, anicte amalia, conjugate EARS: normal NOSE: septum intact NECK/THYROID: no jugular venous di stention, no carotid bruit, thyroid normal HEART: no clicks, gallops, murmurs, or rubs, regular rhythm, S1, S2 normal, no s3, or vascular bruits LUNGS: clear to auscultatio n ABDOMEN: bowel sounds normal, no ascites, no organomegaly, no mass, overweight NEUROLOGIC: alert and oriented, cranial nerves 2-12 grossly intact, deep tendon reflexes 2+ symmetrical, motor strength normal upper and lower extremities, sensory exam intact SKIN: no suspicious lesion s, anicteric PERIPHERAL PULSES: normal BREASTS: Not examined MUSCULOSKELETAL: extremities unremark able, no clubbing, cyanosis or edema LYMPH NODES: no enlarged lymph no patricia,spleen normal RECTAL EXAM: not examined PSYCH: alert, oriented, anx ious appearing, mood depressed ORAL CAVITY: normal, unremarkable
--- OUTSIDE RECORDS SUMMARY | 2024-03-28 15:45 | XMS_ITS ---
Author Organization Ronnell Daniels III, MD Address [address] [place] [place] [address] Care Team Providers Care Associate Professor Of Forestry Name Role Phone Ronnell Daniels Primary Care Provider [phone] REASON FOR VISIT follow up Social History Sex Assigned At : Social History Observation Description Sex Assigned At Female Encounters Encounter Location Date Provider Diagnosis Ronnell Daniels III, MD [address] [place] [address] [place] [address] 03/17/2024 Ronnell Daniels Plan Of Treatment No Information Progress Notes * May DDOB:08/1955 (68 yo F)Acc No.[id number]:03/17/2024 Progress Notes Patient:?GERMÁN BLACKTIERMay Provider:?Ronnell Daniels MD :1955???Age:68 Y???Sex:Female D ate:03/17/2024 Address:[address] [place] [id number] Subjective: * Chief Complaints: * ???1. Follow up. * Medical History:? Objective: * Vitals:? Assessment: Plan: * Treatment: * Images: * The named appointment provid er may or may not be the originator of this progress note, and it is not deemed complete until electronically signed by the appointment provider. Sign off status: Pending * Provider:?Ronnell Daniels MD Date:?02/20 Generated for Heather haq/Stella/Gopal on:?03/28/2024 03:45 PM EST
== END 2024-03-28 16:15 | disposition home or self-care (01) ==
LOC: HO.HOP 15:42
PROVIDERS: PCP Internal Medicine Medical Oncology; Visit Provider Clinical Nurse Specialist Psychiatric/Mental Health
DX: F33.2 Major depressive disorder, recurrent severe without psychotic features (principal); F43.11 Post-traumatic stress disorder, acute; F40.01 Agoraphobia with panic disorder
CPT/HCPCS: 99214

== ENCOUNTER 2024-05-08 14:40 | Outpatient (AMB) | payer MEDICARE, BC, SELFPAY ==
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
== END 2024-05-08 14:42 | disposition home or self-care (01) ==
LOC: HO.HOP 14:40
PROVIDERS: PCP Internal Medicine Medical Oncology; Visit Provider Clinical Nurse Specialist Psychiatric/Mental Health
DX: F33.9 Major depressive disorder, recurrent, unspecified (principal); F43.10 Post-traumatic stress disorder, unspecified; F40.01 Agoraphobia with panic disorder
CPT/HCPCS: 99213

== ENCOUNTER 2024-06-12 15:58 | Outpatient (AMB) | payer MEDICARE, SELFPAY ==
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
--- OUTSIDE RECORDS SUMMARY | 2024-06-12 18:26 | XMS_ITS | Clinical Summary ---
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 08/20/19 Active acetaminophen (TYLENOL) 500 mg tablet Take 2 tablets (1,000 mg total) by mouth 3 (three) times a day. 01/25/20 Active mometasone HFA (Asmanex HFA) 100 mcg/actuation HFA aerosol inhaler inhaler Inhale 2 puffs by mouth 1 (one) time each day. 08/12/19 Active albuterol HFA (PROAIR HFA ; PROVENTIL HFA ; VENTOLIN HFA) 90 mcg/actuation inhaler Inhale 2 puffs by mouth every 6 (six) hours if needed for wheezing or shortness of breath. 08/12/19 Active acetaminophen (TYLENOL 8 HOUR) 650 mg 8 hr tablet Take 1 tablet (650 mg total) by mouth every 8 (eight) hours if needed for mild pain, moderate pain or headaches. Active diphenhydrAMIN E-acetaminophe n (TYLENOL PM) 25-500 mg per tablet Take 1 tablet by mouth at bedtime as needed for sleep. Active atorvastatin (LIPITOR) 40 mg tablet Take 1 tablet (40 mg total) by mouth 1 (one) time each day. 03/01/19 Active escitalopram (LEXAPRO) 10 mg tablet Take 1 tablet (10 mg total) by mouth 1 (one) time each day. 01/13/20 Active buPROPion XL (WELLBUTRIN XL) 300 mg 24 hr tablet Take 1 tablet (300 mg total) by mouth 1 (one) time each day. 01/25/20 Active LORazepam (ATIVAN) 1 mg tablet Take 1 tablet (1 mg total) by mouth 3 (three) times a day. Active senna-docusate (PERICOLACE) 8.6-50 mg per tablet Take by mouth. 06/17/19 Active tiZANidine (ZANAFLEX) 4 mg tablet 12/08/19 Active atorvastatin (LIPITOR) 10 mg tablet Take 1 tablet (10 mg total) by mouth. Active oxycodone HCl,terephth/a spirin (OXYCODONE HCL-OXYCODONE- ASA ORAL) Take by mouth. 06/17/19 Active fluticasone propion-salmet Olivia (Advair HFA) 230-21 mcg/actuation inhalerIndicat ions:COPD with asthma (CMS/HCC V24, CMS/HCC V28) Inhale 2 puffs by mouth 2 (two) times a day. Rinse mouth with water after use to reduce aftertaste and incidence of candidiasis. Do not swallow. 1 each 02/19/20 Active nitroglycerin (NITROSTAT) 0.[address] 1 tablet (0.3 mg total) under the tongue every 5 (five) minutes if needed for chest pain. 03/29/19 025 Discontinued amoxicillin-cl avulanate (AUGMENTIN) 875-125 mg per tablet Take 1 tablet by mouth. 12/03/19 025 Discontinued azithromycin (ZITHROMAX) 250 mg tablet Take 2 tab 1st day. Take 1 tab daily day 2 to 5. 07/31/19 025 Discontinued fluticasone propion-salmet Olivia (ADVAIR HFA) 230-21 mcg/actuation inhaler Inhale 2 puffs by mouth. 01/09/20 025 Discontinued guaiFENesin (MUCINEX) 600 mg 12 hr tablet Take 1 tablet (600 mg total) by mouth. 12/03/19 025 Discontinued omeprazole (PriLOSEC) [address] capsule Take 1 capsule (20 mg total) by mouth. 025 Discontinued albuterol HFA (PROAIR HFA ; PROVENTIL HFA ; VENTOLIN HFA) 90 mcg/actuation inhaler Inhale by mouth. 025 Discontinued LORazepam (ATIVAN) 0.5 mg tablet Take 2 tablets (1 mg total) by mouth. 12/03/19 025 Discontinued Wegovy 2.4 mg/0.75 mL injection pen Inject 2.4 mg under the skin every 7 (seven) days. 02/08/20 025 Discontinued(Co st of medication) fluticasone propion-salmet Olivia (Advair HFA) 230-21 mcg/actuation inhalerIndicat ions:COPD with asthma (CMS/HCC V24, CMS/HCC V28) Inhale 2 puffs by mouth 2 (two) times a day. Rinse mouth with water after use to reduce aftertaste and incidence of candidiasis. Do not swallow. 1 each 02/20/19 025 Discontinued budesonide-for moteroL (SYMBICORT) 160-4.5 mcg/actuation inhaler Inhale 2 puffs by mouth 2 (two) times a day. Rinse mouth with water after use to reduce aftertaste and incidence of candidiasis. Do not swallow. 3 each 04/14/19 025 Discontinued budesonide-for moteroL (Breyna) 160-4.5 mcg/actuation inhaler Inhale 2 puffs by mouth 2 (two) times a day. Rinse mouth with water after use to reduce aftertaste and incidence of candidiasis. Do not swallow. 3 each 04/14/19 25 025 Discontinued Active Problems Problem Noted Date Diagnosed Date Gallbladder attack 04/23/2023 HTN (hypertension) 03/10/2022 Triple vessel coronary artery disease 03/10/2022 Vascular calcification 03/10/2022 Mixed hyperlipidemia 03/10/2022 COVID-19 03/10/2022 Encounters Date Type Department Care Team Description 05/27/2024 1:20 PM EDT Consult Gastroenterology - [place] 175 [facility] [address] [phone] Bk Murray PA 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 ([facility] V24, [facility] V28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); Dysphagia, unspecified type; Blood in sputum 05/23/2024 Telephone Pulmongy [facility] [address] [phone] Meseret Maldonado MD 05/16/2024 12:30 PM EDT Lab Draw Station - [address] [phone] KSENIA (mycobacterium avium-intracellulare) ([facility] V24, [facility] V28) 04/29/2024 1:30 PM EDT Office Visit Infectious Disease - [place] [address] [phone] Zuleyma Hanna MD KSENIA (mycobacterium avium-intracellulare) ([facility] V24, [facility] V28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); Dysphagia, unspecified type 04/09/[address] [phone] Meseret Maldonado MD Medication; Results 04/04/2024 3:39 PM EST - 04/04/2024 11:59 PM EST Hospital Encounter [facility] CT Scan [address] [place] [phone] KSENIA (mycobacterium avium-intracellulare) ([facility] V24, [facility] V28) Discharge Disposition: Home or Self Care from Last 3 Months Immunizations Name Administration Dates Next Due Zoster recombinant (Shingrix) 19yo and older ,12/11/2019 Surgical History Surgery Date Site/Laterality Comments CHOLECYSTECTOMY PROCEDURE: IA LAPAROSCOPY SURG CHOLECYSTECTOMY KNEE SURGERY PROCEDURE: HISTORICAL [...] DX:Osteopenia Trochanteric bursitis DX:Trochan teric bursitis Sepsis (CMS/HCC V24, CMS/HCC V28) DX:Sepsis (HCC) Necrotizing pneumonia (CMS/H CC V24, CMS/HCC V28) DX:Necrotizing pneumonia (HC C) DVT (deep venous thrombosis) (CMS/HCC V24, CMS/HCC V28) DX:DVT (deep venous thrombos is) ([facility]) Essential hypertension DX:Essent ial hypertension Family History Medical History Relation Name Comments Heart attack Father Heart attack Mother Relation Name Status Comments Father Mother Social History Tobacco Use Types Packs/Day Years Used Date Smoking Tobacco: Former Smokeless Tobacco: Never Tobacco Cessation:Counseling Given: Not Answered Alcohol Use Standard Drinks/Week Comments No 0 (1 standard drink = 0.6 oz pur e alcohol) Comments Unknown Sex and Gender Information Value Date Recorded Sex Assigned at Female 03/10/2024 9:45 AM EST Legal Sex Female 7:40 PM EST Gender Identity Female 03/10/2024 9:45 AM EST Sexual Orientation Straight 03/10/2024 9: 45 AM EST Obstetrics History Last Filed Vital Signs Vital Sign Reading Time Taken Comments Blood Pressure 140/78 05/27/2024 1:31 PM EDT Pulse 103 05/27/2024 1:31 PM EDT Temperature 36.2 ??C (97.2 ??F) 04/29/2024 1:44 PM ED T Respiratory Rate 19 02/19/2024 11:30 AM EST Oxygen Saturation 97% 04/29/2024 1:44 PM EDT Inhaled Oxygen Concentration - - Weight 64.9 kg (143 lb) 05/27/2024 1:31 PM EDT Height 157.5 cm (5' 2 ) 05/27/2024 1:31 PM EDT Body Mass Index 26.16 05/27/2024 1:31 PM EDT Plan of Treatment Upcoming Encounters Date Type Department Care Team (Late st Contact Info) Description 07/30/2024 1:00 PM EDT Office Visit Infectious Disease - [place] 175 [facility] [address] [place] [phone] Zuleyma Hanna MD 175 [facility] [address] [place] [address] 07/31/2024 8:00 AM EDT Appointment [facility] Xray [address] [place] [phone] Health Maintenance Due Date Last Done Comments Breast Cancer Screening 1955 DTaP,Tdap,and Td Vaccines (1 - Tdap) 06/25/1974 Pneumococcal Vaccine: 50+ Years (1 of 2 - PCV) 06/25/1974 RSV Immunization Adult Patients (1 - Risk 60-74 years 1-dose series) 2015 Cholesterol Screening (Lipid Panel) 01/28/2022 Colorectal Cancer Screening: Colonoscopy 01/28/2022 Depression Screening 01/28/2022 Falls Risk Assessment 01/28/2022 Hepatitis C Screening 01/28/2022 Medicare Annual Wellness Visit 01/28/2022 Osteoporosis Screening (Bone Density Screening) 01/28/2022 Social Influencers of Health Screening 01/28/2022 Hypertension/CHF/CAD Annual BMP Blood Test 03/20/2023 03/01/2022 COVID-19 Vaccine (1 - 2023-2 5 season) 2023 Influenza Vaccine (Season Ended) 2024 Zoster Vaccines Completed 02/11/2020, 12/11/2019 HIB Vaccines [...] patient's age to complete this topic Meningococcal B Vaccine Aged Out No l onger eligible based on patient's age to complete this topic RSV Immunization Patients Under 20 months Aged Out No longer eligible b ased on patient's age to complete this topic Varicella Vaccines Aged Out No longer eligible based on patient's age to complete this topic Procedures Procedure Name Priority Date/Time Associated Diagnosis Comments ACID FAST BACILLI STAIN Routine 06/13/19 9:35 AM EDT KSENIA (mycobacterium avium-intracellula re) ([facility] V24, [facility] V28) ACID FAST BACILLI STAIN Routine 05/24/19 9:54 AM EDT KSENIA (mycobacterium avium-intracellula re) ([facility] V24, [facility] V28) ..CONCENTRATION Routine 05/22/2024 10:19 AM EDT KSENIA (mycobacterium avium-intracellula re) ([facility] V24, [facility] V28) CULTURE, AFB AND SMEAR WITH REFLEX TO IDENTIFICATION AND SUSCEPTIBILITY Routine 05/22/2024 10:19 AM EDT KSENIA (mycobacterium avium-intracellula re) ([facility] V24, [facility] V28) ACID FAST BACILLI STAIN Routine 05/22/19 12:15 PM EDT KSENIA (mycobacterium avium-intracellula re) ([facility] V24, [facility] V28) ACID FAST BACILLI STAIN Routine 05/17/19 11:11 AM EDT KSENIA (mycobacterium avium-intracellula re) ([facility] V24, [facility] V28) ACID FAST BACILLI STAIN Routine 05/16/19 25 2:26 PM EDT KSENIA (mycobacterium avium-intracellula re) ([facility] V24, [facility] V28) CT CHEST WO CONTRAST Routine 04/04/2024 4:03 PM EST KSENIA (mycobacterium avium-intracellula re) ([facility] V24, [facility] V28) ANNUAL BMP BLOOD TEST Routine 03/01/2022 from Last 3 Months or Most Recently Relevant to Health Maintenance Results * Acid fast bacilli stain (06/12/2024 9:35 AM EDT) Only the most recent of5 resultswithin the time period is included. AFB Stain Result Inadequate specimen, greater than or equal to 25 squamous epithelial cells per low power field. No Acid Fast Bacilli seen on direct smear 06/12/2024 4:02 PM EDT [facility] Sputum Tracheal structure / Unknown Non-blood Collection / Unknown 06/12/2024 9:35 AM EDT 06/12/2024 9:35 AM EDT us Zuleyma Hanna MD LAB MICROBIOLOGY - GENERAL ORDER KAMALJIT Final Result [facility] [address] [place] [address], * Concentration (05/22/2024 10:19 AM EDT) AFB Concentration Performed 025 4:05 PM EDT [facility] Sputum Tracheal structure / Unknown Non-blood Collection / Unknown 05/22/2024 10:19 AM EDT 05/22/2024 10:19 AM EDT Narrative [facility] - 05/23/2024 4:05 PM EDT Performed at: ??01 - [facility] [address] ??[id number] Religious Education Teacher: Sheila Oneill MD, Phone: ??[phone] us Zuleyma Hanna MD LAB BLOOD ORDERABLES Final Resul t [facility] * CT Chest wo Contrast (04/04/2024 4:03 PM EST) Anatomical Region Laterality Modality Body Computed Tomogra phy 04/09/2024 2:45 PM EST Impressions 04/09/2024 3:02 PM EST Similar appearance of the chest compared with 07/26/2023. ??Mild bronchial wall thickening at both bases and mild bibasilar scarring, left greater than right. -------- FINAL REPORT -------- Dictated By: Clayton Pruitt Dictated Date: 04/09/2024 14:45 ET Assigned Physician: Clayton Pruitt Reviewed and Electronically Signed By: Clayton Pruitt Signed Date: 04/09/2024 15:02 ET Workstation ID: [id number] Transcribed By: Self Edit Transcribed Date: 04/09/2024 14:45 ET Narrative 04/09/2024 3:02 PM EST PROCEDURE: CT of the chest without intravenous contrast. TECHNIQUE: CT of the chest without intravenous contrast administration. ??Coronal and sagittal reformats and MIP reconstructions were created. Dose length product: ??759 mGy-cm. HISTORY: Respiratory failure follow up for KSENIA, increased O2 needs at night COMPARISON: 07/25/2023. FINDINGS: Lungs/pleura: Normal caliber central airways. ??Mild bronchial wall thickening in both lower lower lobes, similar to the previous exam. ??There are stable small areas of scarring at both lung bases, with associated calcifications on the left. ??No suspicious pulmonary nodule or mass. ??No pleural effusion or pneumothorax. Mediastinum/tatiana: Mildly patulous esophagus. ??No mediastinal mass or lymphadenopathy. ??No appreciable hilar lymphadenopathy on limited noncontrast evaluation. Vasculature: Normal caliber pulmonary arteries. ??Moderate atherosclerotic calcifications of the aorta and great vessels. Cardiac: Normal heart size. ??Moderate coronary artery calcification. Chest wall: No axillary or supraclavicular lymphadenopathy. Limited abdomen: Atherosclerotic calcifications. ??Mild bilateral renal cortical atrophy. ??Cholecystectomy. ??Small low-attenuation lesion in the central liver, stable and probably a cyst. Bones: Degenerative changes of the shoulders, severe on the right. ??Orthopedic anchors in the anterior right glenoid. ??Moderate degenerative changes of the thoracic spine. Procedure Note Clayton Pruitt MD - 04/09/2024 PROCEDURE: CT of the chest without intravenous contrast. TECHNIQUE: CT of the chest without intravenous contrast administration.Coronal and sagittal reformats and MIP reconstructions were created. Dose length product: 759 mGy-cm. HISTORY: Respiratory failure follow up for KSENIA, increased O2 needs at night COMPARISON: 07/25/2023. FINDINGS: Lungs/pleura: Normal caliber central airways. Mild bronchial wallthickening in both lower lower lobes, similar to the previous exam. Thereare stable small areas of scarring at both lung bases, with associatedcalcifications on the left. No suspicious pulmonary nodule or mass. Nopleural effusion or pneumothorax. Mediastinum/tatiana: Mildly patulous esophagus. No mediastinal mass orlymphadenopathy. No appreciable hilar lymphadenopathy on limitednoncontrast evaluation. Vasculature: Normal caliber pulmonary arteries. Moderate atheroscleroticcalcifications of the aorta and great vessels. Cardiac: Normal heart size. Moderate coronary artery calcification. Chest wall: No axillary or supraclavicular lymphadenopathy. Limited abdomen: Atherosclerotic calcifications. Mild bilateral renalcortical atrophy. Cholecystectomy. Small low-attenuation lesion in thecentral liver, stable and probably a cyst. Bones: Degenerative changes of the shoulders, severe on the right.Orthopedic anchors in the anterior right glenoid. Moderate degenerativechanges of the thoracic spine. IMPRESSION: Similar appearance of the chest compared with 07/26/2023. Mild bronchialwall thickening at both bases and mild bibasilar scarring, left greaterthan right. -------- FINAL REPORT -------- Dictated By: Clayton Pruitt Dictated Date: 04/09/2024 14:45 ET Assigned Physician: Clayton Pruitt Reviewed and Electronically Signed By: Clayton Pruitt Signed Date: 04/09/2024 15:02 ET Workstation ID: [id number] Transcribed By: Self Edit Transcribed Date: 04/09/2024 14:45 ET Zuleyma Hanna MD IM CT PROCEDURES Final Result * Annual BMP Blood Test (03/01/2022) Pathologist [facility] Annual BMP Blood Test Abstracted us Historical Provider HEALTH MAINTENANCE Final Result from Last 3 Months or Most Recently Relevant to Health Maintenance Additional Health Concerns Infection Onset Date Last Indicated Tuberculosis Rule-Out 05/15/2024 06/12/2024 Insurance MEDICARE [facility] Care Teams Cnc Operator Machinist Relationship Specialty Start Date End Date Ronnell Daniels MD [address] [address] PCP - General 04/11/19
== END 2024-06-12 15:59 | disposition home or self-care (01) ==
LOC: HO.HOP 15:58
PROVIDERS: PCP Internal Medicine Medical Oncology; Visit Provider Clinical Nurse Specialist Psychiatric/Mental Health
DX: F33.9 Major depressive disorder, recurrent, unspecified (principal); F43.10 Post-traumatic stress disorder, unspecified; F40.01 Agoraphobia with panic disorder
CPT/HCPCS: 99214

== ENCOUNTER → 2024-06-12 15:58 | Outpatient (BNVA) | payer MEDICARE, SELFPAY | PROVIDERS: PCP Internal Medicine Medical Oncology; Visit Provider Clinical Nurse Specialist Psychiatric/Mental Health | DX: F33.9 Major depressive disorder, recurrent, unspecified (principal); F40.01 Agoraphobia with panic disorder; F43.10 Post-traumatic stress disorder, unspecified ==

== ENCOUNTER 2024-07-17 14:11 | Outpatient (AMB) | payer MEDICARE, SELFPAY ==
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
--- OUTSIDE RECORDS SUMMARY | 2024-07-17 14:21 | XMS_ITS ---
Author Organization Ronnell Daniels III, MD Address [address] [place] [address] [address] [place] [address] Care Team Providers Care Vessel Specialist Name Role Phone Ronnell Daniels Primary Care [...] Date Provider Diagnosis Ronnell Daniels III, MD [address] [place] [address] [address], [place] [address] 07/02/2024 Ronnell Daniels Hyperlipidemia, unspecified hyperlipidemia type [...] the CT scan and the pulmonary business intelligence consultant, Dr. Beltre, and we will reevaluate [...] regimen was made. She has seen a supervisor respiratory who thinks the pain comes from her [...] METABOLI C) 07/02/2024 BRAIN NATRIURETIC PEPTIDE (BNP) 07/03/19 25 CBC w DIFF 07/02/2024 Lipid Panel 07/02/2024 Next Appt Details Follow Up: 3 Weeks, Reason: OV Provider Name:Ronnell Daniels, 07/25/2024 02:30:00 PM, [address] [place] [address] [address], [place], [id number], Progress Notes * GERMÁNMay DDOB:1955 (69 yo F)Acc No.[id number]:07/02/2024 Progress Notes Patient:?GERMÁN May D Provider:?Ronnell Daniels MD :1955???Age:69 Y???Sex:Female D ate:07/02/2024 Address:[address] [place] [address] [address] [place] [id number] Subjective: * Chief Complaints: * ???Left foot swollen from in sect biteAsthmaImpressionCoronary artery diseaseMycobacterium avium pulmonary infection * HPI: ???COVID-19 Screening:?She comes to the office today insisting that her left foot is swollen after a spider bite.? She says she saw the spider.? She requests a refill of nebulizer inhalation albuterol solution.? We could find no pharmaceutical supply to it.? She said she got it from [facility] from a prescription from the emergency room.? Pharmacy is working on this.? The left foot appeared to be normal today.? There is no significant edema.? She seemed medically stable.? She says she is taking her azithromycin for the mycobacterial pneumonia.? She remains under the care of pulmonary.? Her insurance will not pay for Wegovy.? This year she is wearing fit well.? An upper endoscopy is pending because she has complained of dysphagia.? She has a new polygraph examiner, Dr. Hansen, at [facility]. ?Questions?Have you had any new onset fever, chills, cough, congestion, sore throat, shortness of breath, muscle aches??No * ROS:?General/Constitutional:?pain?only normal aches and pains.?Chills?denies.?Fatigue?admits.?Fever?denies.?ENT:?Decreased hearing?denies.?Respiratory:?Cough?non-productive.?Cardiovascular:?Chest pain with exertion?denies.?Dyspnea on exertion?with moderate activity.?Shortness of breath?with exertion.?Gastrointestinal:?Constipation?occasional.?Decreased appetite?denies.?Diarrhea?denies.?Heartburn?denies.?Nausea?denies.?Rectal bleeding?denies.?Vomiting?denies.?Hematology:?bruising?denies.?petechiae?denies.?Swollen glands?none have been noted.?Genitourinary:?Frequent urination?at night.?Musculoskeletal:?Muscle aches?denies.?Painful joints?denies.?Sciatica?denies.?Weakness?denies.?Skin:?Itching?Left foot.?Rash?denies.?Skin lesion(s)?denies.?Neurologic:?Difficulty speaking?denies.?Dizziness?denies.?Headache?denies.?Low back pain?denies.?Psychiatric:?Depressed mood?which is mild.? [...] CVD.?3 brother(s) , 1 sister(s) - healthy. .? [...] children. 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 * Medications:?TakingMeloxicam 15 mg Tablet TAKE 1 TABLET DAILY [...] Allergyraw poultryno[Allergies Verified] Objective: * Vitals:?Ht: 61, Wt:142, BMI: 26.83, BP:139/85, HR:95, Temp:97.6, Ht-cm: 154.94, Wt-k.41. * Examination: ???General Examination: ?GENERAL APPEARANCE:?pleasant, well nourished, well developed, in no acute distress, calm and relaxed, obese, woman.?HEAD:?atraumatic, normocephalic.?EYES:?eomi, perrla, anicteric, conjugate.?EARS:?normal.?NOSE:?septum intact.?ORAL CAVITY:?normal, unremarkable.?NECK/THYROID:?no jugular venous distention, no carotid bruit, thyroid normal.?LYMPH NODES:?no enlarged lymph nodes,spleen normal.?SKIN:?no suspicious lesions, anicteric.?HEART:?no clicks, gallops, murmurs, or rubs, regular rhythm, S1, S2 normal, no s3, or vascular bruits.?LUNGS:?, diminished breath sounds throughout, rhonchi on the RIGHT, rhonchi on the LEFT, scattered wheezes throughout.?BREASTS:?Not examined.?ABDOMEN:?bowel sounds normal, no ascites, no organomegaly, no mass, overweight.?RECTAL EXAM:?not examined.?MUSCULOSKELETAL:?extremities unremarkable, no clubbing, cyanosis or edema, Both feet appear normal.?PERIPHERAL PULSES:?normal.?NEUROLOGIC:?alert and oriented, cranial nerves 2-12 grossly intact, deep tendon reflexes 2+ symmetrical, motor strength normal upper and lower extremities, sensory exam intact.?PSYCH:?alert, oriented.? Assessment: * Assessment: 1.?Mycobacterium avium infec tion - A31.0 (Primary)???Notes :She is refusing to take her antibiotics for unclear reasons. She will proceed to the CT scan and the pulmonary business intelligence consultant, Dr. Beltre, and we will reevaluate the status of her infection. I strongly advised her to finish the antibiotics.???2.?Hyperlipidemia, unspecified hyperlipidemia type - E78.5???Notes :No change in her medications was made today. Comprehensive blood work with fasting lipids has been ordered prior to her next visit.???3.?Overweight - E66.3???Notes :We reviewed her diet and nutrition today. I recommended weight loss at a rate of one half of a pound per week through a diet restricted in fat calories and sodium combined with regular physical activity.A change was made in the dose of the Wegovy. She will now take 2.4 mg weekly.???4.?Asthma, unspecified asthma severity, unspecified whether complicated, unspecified whether persistent - J45.909???Notes :She was breathing comfortably today and her asthmatic bronchitis has resolved. She was encouraged to call me if it worsens.???5.?History of depression - Z86.59???Notes :She says today that she has stopped all of her medications. It was unclear if she was taking the antidepressants. I strongly recommended she take them. I will arrange close follow-up with her. She adamantly denied any suicidal thoughts or desire to hurt himself.???6.?PTSD (post-traumatic stress disorder) - F43.10???Notes :She will continue with therapy.???7.?Former smoker - Z87.891???Notes :She seems highly motivated not to smoke. We formulated a plan to prevent relapse in times of stress and illness.???8.?Coronary atherosclerosis due to calcified coronary lesion - I25.84???Notes :She has had no angina or chest pain since her last visit. No change in her regimen was made. She has seen a supervisor respiratory who thinks the pain comes from her lungs.??? Plan: * Treatment: 2.?Overweight? Continue Wegovy Solution Auto-injector, 1 MG/0.5ML, 0.5 mL, Subcutaneous, weekly.?LAB: PROFILE, FASTING (COMPREHENSIVE METABOLIC) ?LAB: BRAIN NATRIURETIC PEPTIDE (BNP) ?LAB: CBC w DIFF ?LAB: Lipid Panel 3.?Others? Continue Meloxicam Tablet, 15 mg, TAKE 1 TABLET DAILY;?Continue Atorvastatin Calcium Tablet, 10 mg, TAKE 1 TABLET DAILY;?Continue Ibuprofen Tablet, 800 MG, 1 tablet with food or milk as needed, Orally, every 8 hrs;?Continue Albuterol Sulfate HFA Aerosol Solution, 108 (90 Base) MCG/ACT, USE 2 INHALATIONS EVERY 4 HOURS NEEDED;?Continue tiZANidine HCl Tablet, 4 mg, 1 tablet, [...] dangers of tobacco use and urged to quit.?07/02/2024 * Follow Up:?3 Weeks (Reason: OV) * Images: * Sign off status: Completed true * Provider:?Ronnell Daniels MD Date:?06/19 Generated for Heather haq/Stella/Nickitting on:?07/17/2024 02:20 PM EDT History and Physical Notes * HPI (History [...]
== END 2024-07-17 14:12 | disposition home or self-care (01) ==
LOC: HO.HOP 14:11
PROVIDERS: PCP Internal Medicine Medical Oncology; Visit Provider Clinical Nurse Specialist Psychiatric/Mental Health
DX: F33.9 Major depressive disorder, recurrent, unspecified (principal); J85.0 Gangrene and necrosis of lung; A31.0 Pulmonary mycobacterial infection; F40.01 Agoraphobia with panic disorder; F43.10 Post-traumatic stress disorder, unspecified
CPT/HCPCS: 99214

== ENCOUNTER → 2024-07-17 14:11 | Outpatient (BNVA) | payer MEDICARE, SELFPAY | PROVIDERS: PCP Internal Medicine Medical Oncology; Visit Provider Clinical Nurse Specialist Psychiatric/Mental Health | DX: F33.9 Major depressive disorder, recurrent, unspecified (principal); F40.01 Agoraphobia with panic disorder; F43.10 Post-traumatic stress disorder, unspecified; J85.0 Gangrene and necrosis of lung; A31.0 Pulmonary mycobacterial infection | CPT/HCPCS: 99212 ==

== ENCOUNTER 2024-08-14 14:37 | Outpatient (AMB) | payer MEDICARE, SELFPAY ==
--- OUTSIDE RECORDS SUMMARY | 2024-08-12 07:00 | XMS_ITS ---
Author Organization Ronnell Daniels III, MD Address [address] [place] [address] [address] [place] [address] Care Team Providers Care Money Order Clerk Name Role Phone Ronnell Daniels Primary Care Provider [phone] Allergies Allergen (clinical drug ingredient) Drug/Non Drug Allergy documented on EMR Reaction Allergy Type Onset Date Status raw poultry (uncoded) Unknown Allergy Active Eggs or Egg-derived Products Unknown Drug Allergy Active Coconut Flavor Unknown Drug Allergy Ac tive REASON FOR VISIT Telehealth Medications Medication SIG (Take, Route, Frequency, Duration) [...] Tobacco Non-User Ex-cigaret te smoker Vital Signs Height 61 in 08/12/2024 Weight 142 lbs 08/12/2024 BMI 26.83 kg/m2 08/12/2024 Encounters Encounter Location Date Provider Diagnosis Ronnell Daniels III, MD [address] [place] [address] [address] [place], [place] [address] 08/12/2024 Ronnell Daniels Hyperlipidemia, unspecified hyperlipidemia type E78.5 and Overweight E66.3 Assessments Encounter Date Diagnosis (ICD Code) Assessment Notes Treat ment Notes Treatment Clinical Notes 08/12/2024 Hyperlipidemia, unspecified hyperlipidemia type (ICD-10 - E78.5) No change in her medications was made today. Comprehensive blood work with fasting lipids has been ordered prior to her next visit. 08/12/2024 Overweight (ICD-10 - E66.3) We reviewed [...] 2 - 3 Days, Reaso n: Telehealth Provider Name:Ronnell Daniels, 08/15/2024 01:45:00 PM, [address] [place] [address] [address], [place], [address], Progress Notes * GERMÁNMay DDOB:1955 (69 yo F)Acc No.[id number]:08/12/2024 Patient: Yuli SCHAEFFER, May Provider: Karen Daniels MD :1955 A ge:69 Y S ex:Female Date:08/12/2024 Address:[address] [place] [address] [id number] Subjective: * Chief Complaints: * 1 . Telehealth. * HPI: * : no atb ban antibioticrea andthng no good very hot f conditioningas AC, had labs and esophagram refuses atorvast. Telehealth L ocation of provider rendering services: { ...} [address] [facility] [address] L ocation of patient: a ddress listed [...] in the spine for pain, Former smoker, 2016 ASCUS, HPV +, abnormal Pap smear, Declines to undergo colonoscopy, Bilateral necrotizing cavitary pneumonia [facility] November 2021. * Surgical History: r ight [...] children. 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 * Medications: T aking Meloxicam 15 mg [...] INHALATIONS EVERY 4 HOURS NEEDED , Taking Wegovy 1 MG/0.5ML Solution Auto-injector 0.5 mL Subcutaneous weekly , Taking Albuterol Sulfate (2.5 MG/3ML) 0.083% Nebulization Solution 3 mL as needed Inhalation twice a day As needed, Notes to Pharmacist: [id number] Asthma, Taking tiZANidine HCl 4 mg Tablet 1 tablet Orally three times a day , Medication List reviewed and reconciled with the patient * Allergies: C oconut Flavor: Allergy, Eggs or Egg-derived Products: Allergy, raw poultry. Objective: * Vitals: H t: 61, Wt:142, BMI:26.83, Ht-cm: 154.94, Wt-k.41. Assessment: * Assessment: 1. H yperlipidemia, unspecified [...] 8012 SYNCH AUDIO-ONLY EST SF 10 * Follow Up: 2 - 3 Days (Reason: Telehealth) * Images: * The named appointment provid er may or may not be the originator of this progress note, and it is not deemed complete until electronically signed by the appointment provider. Sign off status: Pending * Provider: Karen Daniels MD Date: 0 08/12/2024 Generated for Heather haq/Stella/Nickitting on: 0 08/14/2024 05:46 PM EDT History and Physical Notes * HPI (History of Present Illness) Category Sub-Category Detail Notes Telehealth Location of [facility] rendering services:: {...} [address] [place] [address] [place] [address] Location of patient:: address listed in demographics [...]
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
== END 2024-08-14 14:38 | disposition home or self-care (01) ==
LOC: HO.HOP 14:37
PROVIDERS: PCP Internal Medicine Medical Oncology; Visit Provider Clinical Nurse Specialist Psychiatric/Mental Health
DX: F43.10 Post-traumatic stress disorder, unspecified (principal); F40.01 Agoraphobia with panic disorder; F33.9 Major depressive disorder, recurrent, unspecified
CPT/HCPCS: 99214

== ENCOUNTER → 2024-08-14 14:37 | Outpatient (BNVA) | payer MEDICARE, SELFPAY | PROVIDERS: PCP Internal Medicine Medical Oncology; Visit Provider Clinical Nurse Specialist Psychiatric/Mental Health | DX: Z13.89 Encounter for screening for other disorder (principal); F33.9 Major depressive disorder, recurrent, unspecified; F40.01 Agoraphobia with panic disorder; F43.10 Post-traumatic stress disorder, unspecified ==

== ENCOUNTER 2024-09-11 13:41 | Outpatient (AMB) | payer MEDICARE, SELFPAY ==
--- OUTSIDE RECORDS SUMMARY | 2024-08-12 07:00 | XMS_ITS ---
Author Organization Ronnell Daniels III, MD Address [address] [place] [address] [address] [place] [address] Care Team Providers Care Ross Lift Operator Name Role Phone Ronnell Daniels Primary Care Provider [phone] Allergies Allergen (clinical drug ingredient) Drug/Non Drug [...] Problem Status W/U Status Risk Notes Problem [id number] Nonspecific low back pain (M54.50) Active confirmed She is beginning to improve. She will continue to avoid exertion and rest as much as possible, use a heating pad, and use a combination of ibuprofen and acetaminophen. Vital Signs Height 61 in 08/12/2024 Weight 142 lbs 08/12/2024 BMI 26.83 kg/m2 08/12/2024 Encounters Encounter Location Date Provider Diagnosis Ronnell Daniels III, MD [address] [place] [address] [address] [place] [address] 08/12/2024 Ronnell Daniels Hyperlipidemia, unspecified hyperlipidemia type [...] to the CT scan and the pulmonary alliances consultant, Dr. Beltre, and we will reevaluate [...] orthopedic surgeon and will now see the medical transcription radiology. She will take the meloxicam. 08/12/2024 Osteopenia, [...] Notes * May DDOB:1955 (69 yo F)Acc No.[id number]:08/12/2024 Patient: Yuli SCHAEFFERMay Provider: Karen Daniels MD :1955 A ge:69 Y S ex:Female Date:08/12/2024 Address:[address] [place] [address] MADI FAUSTIN [id number] Subjective: * Chief Complaints: * A cute [...] ocation of provider rendering services: { ...} [address] [place] [address] [place] [address] L ocation of patient: a ddress listed [...] children. 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 * Medications: T akingMeloxicam 15 mg Tablet [...] to the CT scan and the pulmonary alliances consultant, Dr. Beltre, and we will reevaluate [...] orthopedic surgeon and will now see the medical transcription radiology. She will take the meloxicam. 7 . [...] 08/12/2024 Generated for Heather haq/Stella/Annesmitting on: 0 09/11/2024 01:43 PM EDT History and Physical Notes * HPI (History of Present Illness) Category Sub-Category Detail Notes Telehealth Location of [facility] rendering services:: {...} [address] [place], [place] [id number] Location of patient:: address listed in demographics [...]
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
--- OUTSIDE RECORDS SUMMARY | 2024-09-11 13:44 | XMS_ITS ---
Author Name [facility] Organization Unknown History of Medication Use Medication Directions Dispensed Refills Start Date End Date Stat us fluticasone propion-salmeteroL (Advair HFA) 230-21 mcg/actuation inhaler Inhale 2 puffs by mouth 2 (two) times a day. Rinse mouth with water after use to reduce aftertaste and incidence of candidiasis. Do not swallow. 02/19/2024 active meloxicam (MOBIC) 15 mg tablet Take 1 tablet (15 mg total) by mouth 1 (one) time each day if needed for mild pain. 08/19/2022 active albuterol HFA (PROAIR HFA ; PROVENTIL HFA ; VENTOLIN HFA) 90 mcg/actuation inhaler Inhale 2 puffs by mouth every 6 (six) hours if needed for wheezing or shortness of breath. 08/11/2022 active mometasone HFA (Asmanex HFA) 100 mcg/actuation HFA aerosol inhaler inhaler Inhale 2 puffs by mouth 1 (one) time each day. 08/11/2022 active oxycodone HCl,terephth/aspirin (OXYCODONE QZY-VEAAEVUEW-AOR ORAL) Take by mouth. 06/16/2022 active senna-docusate (PERICOLACE) 8.6-50 mg per tablet Take by mouth. 06/16/2022 active atorvastatin (LIPITOR) 40 mg tablet Take 1 tablet (40 mg total) by mouth 1 (one) time each day. 03/01/2022 active acetaminophen (TYLENOL) 500 mg tablet Take 2 tablets (1,000 mg total) by mouth 3 (three) times a day. 01/25/2020 active buPROPion XL (WELLBUTRIN XL) 300 mg 24 hr tablet Take 1 tablet (300 mg total) by mouth 1 (one) time each day. 01/25/2020 active escitalopram (LEXAPRO) 10 mg tablet Take 1 tablet (10 mg total) by mouth 1 (one) time each day. 01/13/2020 active tiZANidine (ZANAFLEX) 4 mg tablet 12/08/2019 active acetaminophen (TYLENOL 8 HOUR) 650 mg 8 hr tablet Take 1 tablet (650 mg total) by mouth every 8 (eight) hours if needed for mild pain, moderate pain or headaches. active atorvastatin (LIPITOR) 10 mg tablet Take 1 tablet (10 mg total) by mouth. active diphenhydrAMINE-acetam inophen (TYLENOL PM) 25-500 mg per tablet Take 1 tablet by mouth at bedtime as needed for sleep. active LORazepam (ATIVAN) 1 mg tablet Take 1 tablet (1 mg total) by mouth 3 (three) times a day. active Allergies Allergen Reaction Severity Comment Documented Date Source Statu s OTHER [place] 03/10/2022 [facility] active EGG 11/29/2021 [facility] active INFLUENZA VIRUS VACCINES 11/25/2021 [facility] active POULTRY Allergic to raw poultry 02/11/2020 [facility] active COCONUT [facility] EGGSHELL [employer] Problems Problem Status Onset Date Problem Type Date of Resoluti on Source HTN (hypertension) active 2022-03-10 ProblemAct [facility] Mixed hyperlipidemia active 2022-03-10 ProblemAct [facility] Triple vessel coronary artery disease active 2022-03-10 ProblemAct [facility] Vascular calcification active 2022-03-10 ProblemAct [facility] COVID-19 active 2022-03-10 ProblemAct [facility] Gallbladder attack active 2023-04-23 ProblemAct [facility] Immunizations Vaccine Date Source Lot Number Status Zoster recombinant (Shingrix ) 19yo and older 02/11/2020 [facility] [id number] completed Zoster recombinant (Shingrix ) 19yo and older 12/11/2019 [facility] [id number] completed
--- OUTSIDE RECORDS SUMMARY | 2024-09-11 13:44 | XMS_ITS | Clinical Summary ---
Author Organization [address] [facility] Address [address] [place] [address] Phone Care Team Providers [employer] Counterman Name Role Phone Ronnell Daniels MD Primary Care Provider [phone] Allergies Active Allergy Reactions Criticality Noted Date [...] each day if needed for mild pain. 3 Active acetaminophen (TYLENOL) 500 mg tablet Take 2 tablets (1,000 mg total) by mouth 3 (three) times a day. 0 Active mometasone HFA (Asmanex HFA) 100 mcg/actuation HFA aerosol inhaler inhaler Inhale 2 puffs by mouth 1 (one) time each day. 3 Active albuterol HFA (PROAIR HFA ; PROVENTIL HFA ; VENTOLIN HFA) 90 mcg/actuation inhaler Inhale 2 puffs by mouth every 6 (six) hours if needed for wheezing or shortness of breath. 3 Active acetaminophen (TYLENOL 8 HOUR) 650 mg 8 hr tablet Take 1 tablet (650 mg total) by mouth every 8 (eight) hours if needed for mild pain, moderate pain or headaches. Active diphenhydrAMINE -acetaminophen (TYLENOL PM) 25-500 mg per tablet Take 1 tablet by mouth at bedtime as needed for sleep. Active atorvastatin (LIPITOR) 40 mg tablet Take 1 tablet (40 mg total) by mouth 1 (one) time each day. 3 Active escitalopram (LEXAPRO) 10 mg tablet Take 1 tablet (10 mg total) by mouth 1 (one) time each day. 0 Active buPROPion XL (WELLBUTRIN XL) 300 mg 24 hr tablet Take 1 tablet (300 mg total) by mouth 1 (one) time each day. 0 Active LORazepam (ATIVAN) 1 mg tablet Take 1 tablet (1 mg total) by mouth 3 (three) times a day. Active senna-docusate (PERICOLACE) 8.6-50 mg per tablet Take by mouth. 3 Active tiZANidine (ZANAFLEX) 4 mg tablet 0 Active atorvastatin (LIPITOR) 10 mg tablet Take 1 tablet (10 mg total) by mouth. Active oxycodone HCl,terephth/as pirin (OXYCODONE ZIS-HRMKEVNQY-G SA ORAL) Take by mouth. 3 Active fluticasone propion-salmete roL (Advair HFA) 230-21 mcg/actuation inhalerIndicati ons:COPD with asthma (CMS/HCC V24, CMS/HCC V28) Inhale 2 puffs by mouth 2 (two) times a day. Rinse mouth with water after use to reduce aftertaste and incidence of candidiasis. Do not swallow. 1 each 12 4 02/19/20 25 Active omeprazole (PriLOSEC) [address] capsule Take 1 capsule (20 mg total) by mouth 1 (one) time each day. Do not crush or chew. 90 each 3 5 08/22/19 26 Active lidocaine (XYLOCAINE) 2 % solution Take 5 mL by mouth 4 (four) times a day (before meals and nightly) for 5 days. 100 mL 5 08/31/19 25 Active Problems Problem Noted Date Diagnosed Date Gallbladder attack 04/23/2023 HTN (hypertension) 03/10/2022 Triple vessel coronary artery disease 03/10/2022 Vascular calcification 03/10/2022 Mixed hyperlipidemia 03/10/2022 COVID-19 03/10/2022 Encounters Date Type Department Care Team Description 08/21/2024 3:06 PM EDT Anesthesia Event [facility] Endoscopy [address] [place] [address] Jose Manuel Loene MD 08/21/2024 2:21 PM EDT - 08/21/2024 11:59 PM EDT Hospital Encounter [facility] Endoscopy [address] [place] [address] Darell Francisco MD Steele, Matthew G, CRNA Gomes, Sheldon B, MD Dysphagia, unspecified type Discharge Disposition: Home or Self Care 07/31/2024 8:00 AM EDT - 07/31/2024 11:59 PM EDT Hospital Encounter [facility] Xray [address] [place] [address] Dysphagia, unspecified type; 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 (CMS/HCC V24, CMS/HCC V28); Blood in sputum Discharge Disposition: Home or Self Care 07/07/2024 Telephone Infectious Disease - [place] [address] [facility] [address] [place] [id number] Zuleyma Hanna MD 07/07/2024 Telephone Infectious Disease - [place] [address] [facility] [address] [place] [address] Dayton Sultana LPN sputum specimen from Last 3 Months Immunizations Name Administration Dates Next Due Zoster recombinant (Shingrix) 19yo and older ,12/11/2019 Surgical History Surgery Date Site/Laterality Comments CHOLECYSTECTOMY PROCEDURE: [place] LAPAROSCOPY SURG CHOLECYSTECTOMY KNEE SURGERY PROCEDURE: HISTORICAL [...] bursitis DX:Trochan teric bursitis Sepsis (CMS/HCC V24, [facility] V28) DX:Sepsis (HCC) Necrotizing pneumonia (CMS/H CC V24, CMS/HCC V28) DX:Necrotizing pneumonia (HC C) DVT (deep venous thrombosis) (CMS/HCC V24, [facility] V28) DX:DVT (deep venous thrombos is) ([facility]) Essential hypertension DX:Essent ial hypertension Family History Medical History Relation Name Comments Heart attack Father Heart attack Mother Relation Name Status Comments Father Mother Social History Tobacco Use Types Packs/Day Years Used Date Smoking Tobacco: Former Smokeless Tobacco: Never Tobacco Cessation:Counseling Given: Not Answered Alcohol Use Standard Drinks/Week Comments No 0 (1 standard drink = 0.6 oz pur e alcohol) Interpersonal Safety Answer Date Record ed Physical Abuse 08/21/2024 Verbal Abuse 08/21/2024 Comments Unknown Sex and Gender Information Value Date Recorded Sex Assigned at Female 03/10/2024 9:45 AM EST Legal Sex Female 7:40 PM EST Gender Identity Female 03/10/2024 9:45 AM EST Sexual Orientation Straight 03/10/2024 9: 45 AM EST Obstetrics History Last Filed Vital Signs Vital Sign Reading Time Taken Comments Blood Pressure 147/90 08/21/2024 3:55 PM EDT Pulse 80 08/21/2024 3:55 PM EDT Temperature 36.6 C (97.8 F) 08/21/2024 3:35 PM EDT Respiratory Rate 16 08/21/2024 3:55 PM EDT Oxygen Saturation 98% 08/21/2024 3:55 PM EDT Inhaled Oxygen Concentration - - Weight 65.8 kg (145 lb) 08/21/2024 2:40 PM EDT Height 154.9 cm (5' 1 ) 08/21/2024 2:40 PM EDT Body Mass Index 27.4 08/21/2024 2:40 PM EDT Plan of Treatment Health Maintenance Due Date Last Done Comments Breast Cancer Screening 1955 DTaP,Tdap,and Td Vaccines (1 - Tdap) 06/25/1974 Pneumococcal Vaccine: 50+ Years (1 of 2 - PCV) 06/25/1974 RSV Immunization Adult Patients (1 - Risk 60-74 years 1-dose series) 2015 Colorectal Cancer Screening: Colonoscopy 01/28/2022 Hepatitis C Screening 01/28/2022 Medicare Annual Wellness Visit 01/28/2022 Osteoporosis Screening (Bone Density Screening) 01/28/2022 Social Influencers of Health Screening 01/28/2022 COVID-19 Vaccine (1 - 2023-2 5 season) 2023 Depression Screening 02/20/2024 Influenza Vaccine (#1) 2024 Hypertension/CHF/CAD Annual BMP Blood Test 07/31/2025 07/31/2024, 03/01/2022 Falls Risk Assessment 08/21/2025 08/21/2024 Cholesterol Screening (Lipid Panel) 07/31/2029 07/31/2024 Zoster Vaccines Completed 02/11/2020, 12/11/2019 HIB Vaccines [...] Procedure Name Priority Date/Time Associated Diagnosis Comments EGD Routine 08/21/2024 3:34 PM EDT Dysphagia, unspecified type TISSUE EXAM Routine 08/21/2024 3:16 PM EDT Dysphagia, unspecified type ACID FAST BACILLI STAIN Routine 07/31/2024 8:52 AM EDT KSENIA (mycobacterium avium-intracellulare) ([facility] V24, [facility] V28) CBC WITH AUTO DIFFERENTIAL Routine 07/31/2024 8:45 AM EDT Hyperlipidemia Severely overweight Hypertensive disease LIPID PANEL WITH REFLEX TO DIRECT LDL Routine 07/31/2024 8:45 AM EDT Hyperlipidemia Severely overweight Hypertensive disease CBC AND DIFFERENTIAL Routine 07/31/2024 8:45 AM EDT Hyperlipidemia Severely overweight Hypertensive disease B-TYPE NATRIURETIC PEPTIDE Routine 07/31/2024 8:45 AM EDT Hyperlipidemia Severely overweight Hypertensive disease COMPREHENSIVE METABOLIC PANEL Routine 07/31/2024 8:45 AM EDT Hyperlipidemia Severely overweight Hypertensive disease XR ESOPHAGRAM Routine 07/31/2024 8:32 AM EDT Dysphagia, unspecified type 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 ([facility] V24, [facility] V28) Blood in sputum ACID FAST BACILLI STAIN Routine 06/18/2024 7:36 AM EDT KSENIA (mycobacterium avium-intracellulare) ([facility] V24, [facility] V28) ACID FAST BACILLI STAIN Routine 06/17/2024 7:37 AM EDT KSENIA (mycobacterium avium-intracellulare) ([facility] V24, [facility] V28) ACID FAST BACILLI STAIN Routine 06/12/2024 9:35 AM EDT KSENIA (mycobacterium avium-intracellulare) ([facility] V24, [facility] V28) from Last 3 Months Results * EGD Anesthesia - MAC; [facility] ENDOSCOPY (08/21/2024 3:34 PM EDT) Anatomical Region Laterality Modality Endoscopy 08/21/2024 3:12 PM EDT Impressions 08/21/2024 3:38 PM EDT - Normal examined duodenum. - Bilious gastric fluid. - Bile gastritis. Biopsied. - Abnormal esophageal motility. - Benign-appearing esophageal stenosis. Dilated. - Web in the upper third of the esophagus. Dilated. Recommendation: - Discharge patient to home. - Use a proton pump inhibitor PO daily. - Repeat upper endoscopy PRN for retreatment. Narrative 08/21/2024 3:38 PM EDT [facility] GI Patient Name: Laverne Dunlap Procedure Date: 08/21/2024 3:12 PM Date of : 1955 Age: 69 Gender: Female Note Status: Finalized Attending MD: Darell Francisco MD, Procedure Date No Time: 08/21/2024 Procedure: Upper GI endoscopy Indications: Dysphagia, Abnormal cine-esophagram Providers: Darell Francisco MD Referring MD: Darell Francisco MD Medicines: Monitored Anesthesia Care Complications: No immediate complications. Estimated blood loss: Minimal. Estimated Blood Loss: Estimated blood loss was minimal. Procedure: Pre-Anesthesia Assessment: - Prior to the procedure, a History and Physical was performed, and patient medications and allergies were reviewed. The patient is competent. The risks and benefits of the procedure and the sedation options and risks were discussed with the patient. All questions were answered and informed consent was obtained. Patient identification and proposed procedure were verified by the physician, the nurse, the cocoa press operator and the health technician hearing in the pre-procedure area in the endoscopy suite. Mental Status Examination: alert and oriented. Airway Examination: normal oropharyngeal airway and neck mobility. Respiratory Examination: clear to auscultation. CV Examination: normal. Prophylactic Antibiotics: The patient does not require prophylactic antibiotics. Prior Anticoagulants: The patient has taken no anticoagulant or antiplatelet agents. ASA Grade Assessment: III - A patient with severe systemic disease. After reviewing the risks and benefits, the patient was deemed in satisfactory condition to undergo the procedure. The anesthesia plan was to use monitored anesthesia care (MAC). Immediately prior to administration of medications, the patient was re-assessed for adequacy to receive sedatives. The heart rate, respiratory rate, oxygen saturations, blood pressure, adequacy of pulmonary ventilation, and response to care were monitored throughout the procedure. The physical status of the patient was re-assessed after the procedure. After obtaining informed consent, the endoscope was passed under direct vision. Throughout the procedure, the patient's blood pressure, pulse, and oxygen saturations were monitored continuously. The Olympus Gastroscope was introduced through the mouth, and advanced to the second part of duodenum. The upper GI endoscopy was accomplished without difficulty. The patient tolerated the procedure well. Findings: The examined duodenum was normal. Bilious fluid was found in the stomach. Segmental moderate inflammation characterized by adherent blood, congestion (edema), erythema and linear erosions was found in the gastric body and in the gastric antrum. Biopsies were taken with a cold forceps for histology. Estimated blood loss was minimal. Abnormal motility was noted in the esophagus. The cricopharyngeus was abnormal. There are extra peristaltic waves in the esophageal body. The distal esophagus/lower esophageal sphincter is open. Primary and tertiary peristaltic waves are noted. One benign-appearing, intrinsic moderate (circumferential scarring or stenosis; an endoscope may pass) stenosis was found at the gastroesophageal junction. This stenosis measured 1.7 cm (inner diameter) x less than one cm (in length). The stenosis was traversed. A TTS dilator was passed through the scope. Dilation with an 18-19-20 mm balloon dilator was performed to 20 mm. Estimated blood loss was minimal. A web was found in the upper third of the esophagus. A guidewire was placed and the scope was withdrawn. Dilation was performed with a Savary dilator with mild resistance at 10 mm, 11 mm, 12 mm, 12.8 mm and 14 mm. 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 All rights reserved. The codes documented in this report are preliminary and upon testing coordinator review may be revised to meet current compliance requirements. Darell Francisco MD 08/21/2024 3:38:47 PM This report has been signed electronically.Darell Francisco MD Number of Addenda: 0 Note Initiated On: 08/21/2024 3:12 PM Scope In: Scope Out: Endoscopy Department at [facility] - [address] [place] [phone] Procedure Note Darell Francisco MD - 08/21/2024 [facility] GI Patient Name: May Procedure Date: 08/21/2024 3:12 PM Date of : 1955 Age: 69 Gender: Female Note Status: Finalized Attending MD: Darell Francisco MD, Procedure Date No Time: 08/21/2024 Procedure: Upper GI endoscopy Indications: Dysphagia, Abnormal cine-esophagram Providers: Darell Francisco MD Referring MD: Darell Francisco MD Medicines: Monitored Anesthesia Care Complications: No immediate complications. Estimated blood loss: Minimal. Estimated Blood Loss: Estimated blood loss was minimal. Procedure: Pre-Anesthesia Assessment: - Prior to the procedure, a History and Physicalwas performed, and patient medications and allergieswere reviewed. The patient is competent. The risks and benefits of the procedure and the sedation optionsand risks were discussed with the patient. Allquestions were answered and informed consent was obtained. Patient identification and proposed procedure were verified by the physician, the nurse, theanesthetist and the health technician hearing in the pre-procedure area in the endoscopy suite. Mental Status Examination: alertand oriented. Airway Examination: normal oropharyngeal airway and neck mobility. Respiratory Examination: clear to auscultation. CV Examination: normal. Prophylactic Antibiotics: The patient does notrequire prophylactic antibiotics. Prior Anticoagulants: The patient has taken no anticoagulant or antiplatelet agents. ASA Grade Assessment: III - A patient with severe systemic disease. After reviewing the risksand benefits, the patient was deemed in satisfactory condition to undergo the procedure. The anesthesia plan was to use monitored anesthesia care (MAC). Immediately prior to administration of medications, the patient was re-assessed for adequacy to receive sedatives. The heart rate, respiratory rate, oxygen saturations, blood pressure, adequacy of pulmonary ventilation, and response to care were monitored throughout the procedure. The physical status ofthe patient was re-assessed after the procedure. After obtaining informed consent, the endoscope was passed under direct vision. Throughout theprocedure, the patient's blood pressure, pulse, and oxygen saturations were monitored continuously. TheOlympus Gastroscope was introduced through the mouth, and advanced to the second part of duodenum. The upperGI endoscopy was accomplished without difficulty. The patient tolerated the procedure well. Findings: The examined duodenum was normal. Bilious fluid was found in the stomach. Segmental moderate inflammation characterized by adherent blood, congestion (edema), erythema and linear erosions was found in the gastric body andin the gastric antrum. Biopsies were taken with a cold forceps for histology. Estimated blood loss was minimal. Abnormal motility was noted in the esophagus. The cricopharyngeus was abnormal. There are extra peristaltic waves in the esophageal body. Thedistal esophagus/lower esophageal sphincter is open.Primary and tertiary peristaltic waves are noted. One benign-appearing, intrinsic moderate (circumferential scarring or stenosis; an endoscope may pass) stenosis was found at thegastroesophageal junction. This stenosis measured 1.7 cm (inner diameter) x less than one cm (in length). Thestenosis was traversed. A TTS dilator was passed through the scope. Dilation with an 18-19-20 mm balloon dilator was performed to 20 mm. Estimated blood loss was minimal. A web was found in the upper third of theesophagus. A guidewire was placed and the scope was withdrawn. Dilation was performed with a Savary dilator withmild resistance at 10 mm, 11 mm, 12 mm, 12.8 mm and 14mm. 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 All rights reserved. The codes documented in this report are preliminary and upon testing coordinator reviewmay be revised to meet current compliance requirements. Darell Francisco MD 08/21/2024 3:38:47 PM This report has been signed electronically.Darell Francisco MD Number of Addenda: 0 Note Initiated On: 08/21/2024 3:12 PM Scope In: Scope Out: Endoscopy Department at [facility] - [address] [place] [phone] IMPRESSION: - Normal examined duodenum. - Bilious gastric fluid. - Bile gastritis. Biopsied. - Abnormal esophageal motility. - Benign-appearing esophageal stenosis. Dilated. - Web in the upper third of the esophagus.Dilated. Recommendation: - Discharge patient to home. - Use a proton pump inhibitor PO daily. - Repeat upper endoscopy PRN for retreatment. us Darell Francisco MD GI~PROCEDURE ORDERABLES Fin al Result * Tissue exam (08/21/2024 3:16 PM EDT) Final Diagnosis A. Stomach, biopsy: - Gastric antral and oxyntic mucosa with no specific pathologic changes. - No Helicobacter pylori organisms are morphologically identified. 08/26/2024 9:22 AM EDT [facility] Gross Description A. Stomach, biopsy: Labeled stomach biopsy . Received in formalin are three irregular mathews mucosal tissue fragments, ranging from 0.2 cm to 0.5 cm in greatest dimension, which are wrapped in paper and submitted in toto in one cassette, three pieces, multiple levels on one slide. RAMÓN 08/26/2024 9:22 AM EDT [facility] Disclaimer Unless otherwise specified, all tissue is 10% NB formalin fixed and paraffin embedded. 08/26/2024 9:22 AM EDT [facility] Tissue Stomach structure / Unknown 08/21/2024 3:16 PM EDT 08/25/2024 7:30 AM EDT Darell Francisco MD LAB PATHOLOGY ORDERABLES Fi nal Result Performing Organization Address [facility] de Phone Number [facility] [address] [place] [address], [place] [phone] * Acid fast bacilli stain (07/31/2024 8:52 AM EDT) Only the most recent of4 resultswithin the time period is included. AFB Stain Result Inadequate specimen, greater than or equal to 25 squamous epithelial cells per low power field. No Acid Fast Bacilli seen on direct smear 07/31/2024 9:52 AM EDT [facility] Sputum Tracheal structure / Unknown Non-blood Collection / Unknown 07/31/2024 8:52 AM EDT 07/31/2024 9:09 AM EDT Zuleyma Hanna MD LAB MICROBIOLOGY - GENERAL ORDER KAMALJIT Final Result Performing Organization Address [facility] de Phone Number [facility] [address] [place] [address], * (ABNORMAL) Lipid panel with reflex to direct LDL (07/31/2024 8:45 AM EDT) Cholesterol 276(H) 0 - 200 mg/dL LAB CHEMISTRY METHOD 07/31/2024 10:32 AM EDT [facility] Triglycerides 459(H) 0 - 150 mg/dL LAB CHEMISTRY METHOD 07/31/2024 10:32 AM EDT [facility] HDL 38(L) >=40 mg/dL LAB CHEMISTRY METHOD 07/31/2024 10:32 AM EDT [facility] LDL Calculated 146(H) 0 - 100 mg/dL LAB CHEMISTRY METHOD 07/31/2024 10:32 AM EDT [facility] Comment:Unable to calculate when triglycerides >400 mg/dL. VLDL Cholesterol Tom 91.8 mg/dL LAB CHEMISTRY METHOD 07/31/2024 10:32 AM EDT [facility] Comment:Unable to calculate when triglycerides >400 mg/dL. Non HDL Chol. (LDL+VLDL) 238(H) <145 mg/dL LAB CHEMISTRY METHOD 07/31/2024 10:32 AM EDT [facility] Comment:Unable to calculate when triglycerides >400 mg/dL. Chol/HDL Ratio 7.3(H) 0.0 - 4.4 LAB CHEMISTRY METHOD 07/31/2024 10:32 AM EDT [facility] Blood Venous blood specimen / Unknown Venipuncture / Unknown 07/31/2024 8:45 AM EDT 07/31/2024 9:09 AM EDT us Ronnell Daniels MD LAB BLOOD ORDERABLES Final Res ult [facility] [address] [place] [address], * (ABNORMAL) CBC auto differential (07/31/2024 8:45 AM EDT) WBC 7.4 4.8 - 10.8 K/mcL LAB HEMETOLOGY METHOD 07/31/2024 9:18 AM EDT [facility] RBC 4.00 3.80 - 4.80 M/mcL LAB HEMETOLOGY METHOD 07/31/2024 9:18 AM EDT [facility] Hemoglobin 11.9 11.5 - 16.0 g/dL LAB HEMETOLOGY METHOD 07/31/2024 9:18 AM EDT [facility] Hematocrit 36.6 35.0 - 47.0 % LAB HEMETOLOGY METHOD 07/31/2024 9:18 AM [facility] MCV 91.7 79.0 - 98.0 FL LAB HEMETOLOGY METHOD 07/31/2024 9:18 AM [facility] MCH 29.8 27.0 - 32.0 pcg LAB HEMETOLOGY METHOD 07/31/2024 9:18 AM [facility] MCHC 32.5 32.0 - 37.0 g/dL LAB HEMETOLOGY METHOD 07/31/2024 9:18 AM [facility] RDW 13.4 11.0 - 15.0 % LAB HEMETOLOGY METHOD 07/31/2024 9:18 AM [facility] Platelets 272 130 - 400 K/mcL LAB HEMETOLOGY METHOD 07/31/2024 9:18 AM [facility] MPV 9.8 7.0 - 11.0 FL LAB HEMETOLOGY METHOD 07/31/2024 9:18 AM [facility] NRBC 0.0 <1.0 % LAB HEMETOLOGY METHOD 07/31/2024 9:18 AM [facility] NRBC Absolute 0.00 <0.10 K/mcL LAB HEMETOLOGY METHOD 07/31/2024 9:18 AM [facility] Neutrophils Relative 58.5 % LAB HEMETOLOGY METHOD 07/31/2024 9:18 AM [facility] Lymphocytes Relative 28.1 % LAB HEMETOLOGY METHOD 07/31/2024 9:18 AM [facility] Monocytes Relative 7.7 % LAB HEMETOLOGY METHOD 07/31/2024 9:18 AM [facility] Eosinophils Relative 4.3 % LAB HEMETOLOGY METHOD 07/31/2024 9:18 AM [facility] Basophils Relative 0.9 % LAB HEMETOLOGY METHOD 07/31/2024 9:18 AM EDT [facility] Immature Granulocytes Relative 0.5 % LAB HEMETOLOGY METHOD 07/31/2024 9:18 AM EDT [facility] Neutrophils Absolute 4.31 1.50 - 7.00 K/mcL LAB HEMETOLOGY METHOD 07/31/2024 9:18 AM EDT [facility] Lymphocytes Absolute 2.08 1.00 - 5.00 K/mcL LAB HEMETOLOGY METHOD 07/31/2024 9:18 AM EDT [facility] Monocytes Absolute 0.57 0.20 - 1.00 K/mcL LAB HEMETOLOGY METHOD 07/31/2024 9:18 AM EDT [facility] Eosinophils Absolute 0.32 0.00 - 0.50 K/mcL LAB HEMETOLOGY METHOD 07/31/2024 9:18 AM EDT [facility] Basophils Absolute 0.07 0.00 - 0.20 K/mcL LAB HEMETOLOGY METHOD 07/31/2024 9:18 AM EDT [facility] Immature Granulocytes Absolute 0.04(H) 0.00 - 0.03 K/mcL LAB [facility] Blood Venous blood specimen / Unknown Venipuncture / Unknown 07/31/2024 8:45 AM EDT 07/31/2024 9:09 AM EDT us Ronnell Daniels MD LAB BLOOD ORDERABLES Final Res ult [facility] [address] [place] [address], * B-type natriuretic peptide (07/31/2024 8:45 AM EDT) BNP 12 <=100 pcg/mL LAB CHEMISTRY METHOD 07/31/2024 12:35 PM [facility] Blood Venous blood specimen / Unknown Venipuncture / Unknown 07/31/2024 8:45 AM EDT 07/31/2024 9:09 AM EDT us Ronnell Daniels MD LAB BLOOD ORDERABLES Final Res ult [facility] [address] [place] [address], [place] [phone] * (ABNORMAL) Comprehensive metabolic panel (07/31/2024 8:45 AM EDT) Sodium 140 133 - 145 mmol/L LAB CHEMISTRY METHOD 07/31/2024 10:04 AM [facility] Potassium 4.0 3.5 - 5.5 mmol/L LAB CHEMISTRY METHOD 07/31/2024 10:04 AM [facility] Chloride 106 96 - 110 mmol/L LAB CHEMISTRY METHOD 07/31/2024 10:04 AM [facility] CO2 25 21 - 32 mmol/L LAB CHEMISTRY METHOD 07/31/2024 10:04 AM [facility] Anion Gap 9 3 - 11 LAB CHEMISTRY METHOD 07/31/2024 10:04 AM [facility] Glucose 110(H) 70 - 100 mg/dL LAB CHEMISTRY METHOD 07/31/2024 10:04 AM [facility] BUN 26(H) 5 - 25 mg/dL LAB CHEMISTRY METHOD 07/31/2024 10:04 AM [facility] Creatinine 1.35(H) 0.50 - 1.10 mg/dL LAB CHEMISTRY METHOD 07/31/2024 10:04 AM [facility] eGFR 43(L) >=60 mL/min/1. 73m2 LAB CHEMISTRY METHOD 07/31/2024 10:04 AM [facility] Comment:Calculation based on the Chronic Kidney Disease Epidemiology Collaboration (CKD-EPI) equation refit without adjustment for race. BUN/Creatinine Ratio 19.3 LAB CHEMISTRY METHOD 07/31/2024 10:04 AM [facility] Calcium 9.3 8.5 - 10.5 mg/dL LAB CHEMISTRY METHOD 07/31/2024 10:04 AM [facility] AST (SGOT) 22 10 - 42 unit/L LAB CHEMISTRY METHOD 07/31/2024 10:04 AM [facility] ALT (SGPT) 47 10 - 60 unit/L LAB CHEMISTRY METHOD 07/31/2024 10:04 AM [facility] Alkaline Phosphatase 153(H) 42 - 121 unit/L LAB CHEMISTRY METHOD 07/31/2024 10:04 AM [facility] Total Protein 6.4 6.0 - 8.0 g/dL LAB CHEMISTRY METHOD 07/31/2024 10:04 AM [facility] Albumin 3.9 3.2 - 5.0 g/dL LAB CHEMISTRY METHOD 07/31/2024 10:04 AM [facility] Total Bilirubin 0.4 0.0 - 1.4 mg/dL LAB CHEMISTRY METHOD 07/31/2024 10:04 AM [facility] Blood Venous blood specimen / Unknown Venipuncture / Unknown 07/31/2024 8:45 AM EDT 07/31/2024 9:09 AM EDT us Ronnell Daniels MD LAB BLOOD ORDERABLES Final Res ult [facility] [address] [place] [address], * XR Esophagram (07/31/2024 8:32 AM EDT) Anatomical Region Laterality Modality Head and Neck Radiographic Payton ging 07/31/2024 10:2 0 AM EDT Impressions 07/31/2024 1:50 PM EDT 1. Mild esophageal dysmotility, likely age-appropriate. 2. Moderate narrowing seen across multiple images of the proximal esophagus at C5-6 with cricopharyngeal prominence. Patient unable to tolerate 13 mm barium tablet. Consider direct visualization with endoscopy. -------- FINAL REPORT -------- Dictated By: Malena Landers Dictated Date: 07/31/2024 10:20 ET Assigned Physician: Elmer Chavez Reviewed and Electronically Signed By: Elmer Chavez Signed Date: 07/31/2024 13:50 ET Workstation ID: [id number] Transcribed By: Self Edit Transcribed Date: 07/31/2024 10:30 ET Resident/PA/SHANK SORTER: Malena Landers Narrative 07/31/2024 1:50 PM EDT FINDINGS: Double contrast esophagram performed. COMPARISON: No prior esophagram imaging HISTORY: Patient is a 69-year-old female with history of dysphagia with both solids and liquids Uniforms Sales Representative radiographs: 1 view chest radiograph demonstrates cardiac and mediastinal contours within normal limits. Lungs are clear bilaterally. Costophrenic angles are sharp. Aortic knob is calcified. There is a a surgical anchor in the right glenoid also seen on prior imaging. Surgical clips in the right upper quadrant indicating history of cholecystectomy. 1 view lateral soft tissue neck demonstrates no prevertebral soft tissue masses. Airway is widely patent. Cervical spine is incompletely visualized due to patient shoulders. Effervescent crystals were administered orally. Thick and thin barium were administered orally under fluoroscopic control. Pharyngoesophagram: Rapid sequence imaging of the hypopharynx during swallowing demonstrates prompt initiation of swallowing. There is normal soft palate elevation and normal epiglottic motion. There is no laryngeal penetration or ramonita aspiration. There is no residual in the vallecula nor in the piriform sinuses. There is moderate narrowing seen across multiple images of the proximal esophagus at C5-6 with cricopharyngeal prominence. Thoracic esophagus: There is mild esophageal dysmotility. Normal distensibility and mucosal pattern without evidence of ulceration or mass formation. Hiatal hernia: None Reflux: Unable to elicit 13mm Barium pill: Unable to swallow DAP: 452.0 uGym^2 Procedure Note Elmer Chavez MD - 07/31/2024 FINDINGS: Double contrast esophagram performed. COMPARISON: No prior esophagram imaging HISTORY: Patient is a 69-year-old female with history of dysphagia withboth solids and liquids Uniforms Sales Representative radiographs: 1 view chest radiograph demonstrates cardiac andmediastinal contours within normal limits. Lungs are clear bilaterally.Costophrenic angles are sharp. Aortic knob is calcified. There is a asurgical anchor in the right glenoid also seen on prior imaging. Surgicalclips in the right upper quadrant indicating history of cholecystectomy. 1view lateral soft tissue neck demonstrates no prevertebral soft tissuemasses. Airway is widely patent. Cervical spine is incompletely visualizeddue to patient shoulders. Effervescent crystals were administered orally. Thick and thin barium wereadministered orally under fluoroscopic control. Pharyngoesophagram: Rapid sequence imaging of the hypopharynx duringswallowing demonstrates prompt initiation of swallowing. There is normalsoft palate elevation and normal epiglottic motion. There is no laryngealpenetration or ramonita aspiration. There is no residual in the vallecula norin the piriform sinuses. There is moderate narrowing seen across multipleimages of the proximal esophagus at C5-6 with cricopharyngealprominence. Thoracic esophagus: There is mild esophageal dysmotility. Normaldistensibility and mucosal pattern without evidence of ulceration or massformation. Hiatal hernia: None Reflux: Unable to elicit 13mm Barium pill: Unable to swallow DAP: 452.0 uGym^2 IMPRESSION: 1. Mild esophageal dysmotility, likely age-appropriate. 2. Moderate narrowing seen across multiple images of the proximalesophagus at C5-6 with cricopharyngeal prominence. Patient unable totolerate 13 mm barium tablet. Consider direct visualization withendoscopy. -------- FINAL REPORT -------- Dictated By: Malena Landers Dictated Date: 07/31/2024 10:20 ET Assigned Physician: Elmer Chavez Reviewed and Electronically Signed By: Elmer Chavez Signed Date: 07/31/2024 13:50 ET Workstation ID: [id number] Transcribed By: Self Edit Transcribed Date: 07/31/2024 10:30 ET Resident/PA/SHANK SORTER: Malena Landers Bk [facility] IMG FLUOROSCOPY PROCEDURES Leti l Result from Last 3 Months Insurance MEDICARE [facility] Care Teams Parts Counterman Relationship Specialty Start Date End Date Ronnell Daniels MD [address] [address] PCP - General 04/11/19
--- OUTSIDE RECORDS SUMMARY | 2024-09-11 13:44 | XMS_ITS | Patient Health Record ---
Author Organization [facility] Address [address] [place] [address] Care Team Providers Care It Web Development Consultant Name Role Phone Asad Tripp Primary Care Provider Ronnell Connor Unavailable [phone] Reason For Referral No Information Medications Medication SIG (Take, Route, Frequency, Duration) Notes Start Date End Date Status Omeprazole 20 MG 1 capsule Orally Onc e a day for 30 day(s) 11/22/2014 Active Suprep Bowel Prep 1 kit as directed Oral ly as directed for 1 dose 03/31/2014 Active buPROPion HCl ER (SR) 150 MG 1 tablet Orally Twice a day Active Problems Problem Type SNOMED Code ICD Code Onset Dates Problem Status W/U Status Risk Notes Problem Dysphagia (96550137) Dysphagia (787.20) Active confirmed Problem Colon cancer screening (299041309) Colon cancer screening (V76.51) Active confirmed Problem Gastroesophageal reflux disease (135301896) GERD (gastroesopha geal reflux disease) (530.81) Active confirmed Plan Of Treatment Future Test Test Name Order Date UPPER GI ENDOSCOPY BALL[place]ON DILATION OF ESOPH 03/31/2014 COLONOSCOPY 03/31/2014 Insurance Providers Payer Name Payer Address Payer Phone Subscriber Number Group Number Insured Name Patient Relationship to Insured Coverage Start Date Coverage End Date [facility] [address] [place] [phone] [id number] May Self - patient is the insured Medical (General) History Medical History History ICD Code Denies VT,DM,CVA,Lung disease,renal dise ase Depression GERD Surgical History Surgery Date(Month/Year) Knee surgeries Shoulder surgery-right--rotator cuff Lumpectomy X2--benign Elbow surgery
== END 2024-09-11 13:42 | disposition home or self-care (01) ==
LOC: HO.HOP 13:41
PROVIDERS: PCP Internal Medicine Medical Oncology; Visit Provider Clinical Nurse Specialist Psychiatric/Mental Health
DX: F43.10 Post-traumatic stress disorder, unspecified (principal); F40.01 Agoraphobia with panic disorder; F33.9 Major depressive disorder, recurrent, unspecified
CPT/HCPCS: 99214

== ENCOUNTER 2024-10-16 14:06 | Outpatient (AMB) | payer MEDICARE, SELFPAY ==
--- OUTSIDE RECORDS SUMMARY | 2024-08-11 07:27 | XMS_ITS ---
Author Organization Ronnell Daniels III, MD Address [address] [place] [address] [place] [address] Care Team Providers Care Monotype Machinist Name Role Phone Ronnell Daniels Primary Care [...] Date Provider Diagnosis Ronnell Daniels III, MD [address] [place] [address] [place] [address] 08/11/2024 Ronnell Daniels Plan Of Treatment Medication Medication Name Sig Start Date Stop Date Notes tiZANidine HCl 4 mg 1 tablet Orally thre e times a day for 90 days Progress Notes * May DDOB:1955 (69 yo F)Acc No.[id number]:08/11/2024 Patient: Yuli SCHAEFFERMay :1955 A ge:69 Y S ex:Female Address:[address] [place] [address], [phone] * Refills Refill tiZANidine HCl Tablet, 4 mg, Orally, 270 Tablet, 1 tablet, three times a day, 90 days, Refills=3 * true * Date: Generated for Heather haq/Stella/eTransmitting on: 0 10/16/2024 02:52 PM EDT
--- OUTSIDE RECORDS SUMMARY | 2024-08-12 07:00 | XMS_ITS ---
Author Organization Ronnell Daniels III, MD Address [address] [place] [address] [address] [place] [address] Care Team Providers Care Final Inspector Movement Assembly Name Role Phone Ronnell Daniels Primary Care Provider [phone] Allergies Allergen (clinical drug ingredient) Drug/Non Drug [...] Problem Status W/U Status Risk Notes Problem [id number] Nonspecific low back pain (M54.50) Active confirmed She is beginning to improve. She will continue to avoid exertion and rest as much as possible, use a heating pad, and use a combination of ibuprofen and acetaminophen. Vital Signs Height 61 in 08/12/2024 Weight 142 lbs 08/12/2024 BMI 26.83 kg/m2 08/12/2024 Encounters Encounter Location Date Provider Diagnosis Ronnell Daniels III, MD [address] [place] [address] [address] [place] [address] 08/12/2024 Ronnell Daniels Hyperlipidemia, unspecified hyperlipidemia type [...] to the CT scan and the pulmonary absence management consultant, Dr. Beltre, and we will reevaluate [...] orthopedic surgeon and will now see the equipment maint tech. She will take the meloxicam. 08/12/2024 Osteopenia, [...] Days, Reaso n: Telehealth Progress Notes * May DDOB:1955 (69 yo F)Acc No.[id number]:08/12/2024 Patient: Yuli SCHAEFFERMay Provider: Karen Daniels MD :1955 A ge:69 Y S ex:Female Date:08/12/2024 Address:[address] [place] [address] MADI FAUSTIN [id number] Subjective: * Chief Complaints: * A cute [...] ocation of provider rendering services: { ...} [address] [place] [address] [place] [address] L ocation of patient: a ddress listed [...] children. 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 * Medications: T akingMeloxicam 15 mg [...] to the CT scan and the pulmonary absence management consultant, Dr. Beltre, and we will reevaluate [...] orthopedic surgeon and will now see the equipment maint tech. She will take the meloxicam. 7 . [...] 0 08/12/2024 Generated for Heather haq/Stella/Annesmitting on: 0 10/16/2024 02:51 PM EDT History and Physical Notes * HPI (History of Present Illness) Category Sub-Category Detail Notes Telehealth Location of [facility] rendering services:: {...} [address] [place], [place] [phone] Location of patient:: address listed in demographics [...]
--- OUTSIDE RECORDS SUMMARY | 2024-08-15 09:45 | XMS_ITS ---
Author Organization Ronnell Daniels III, MD Address [address] [place] [address] [address] [place] [address] Care Team Providers Care Environmental Sampler Name Role Phone Ronnell Daniels Primary Care [...] Date Provider Diagnosis Ronnell Daniels III, MD [address] [place] [address] [address] [place], [place] [address] 08/15/2024 Ronnell Daniels Hyperlipidemia, unspecified hyperlipidemia type [...] will remain under the care of her news clerk. 08/15/2024 Atypical squamous cells of undetermined significance on cytologic smear of cervix (ASC-US) (ICD-10 - R87.610) Her previous physicians records indicate a history of positivity for HPV and ACUS. She has an upcoming appointment and I will attempt to find old records. 08/15/2024 Primary osteoarthritis involving multiple joints (ICD-10 - M15.0) She has finished with the orthopedic surgeon and will now see the manufacturer. She will take the meloxicam. 08/15/2024 Coronary atherosclerosis due to calcified coronary lesion (ICD-10 - I25.84) She has had no angina or chest pain since her last visit. No change in her regimen was made. She has seen a general warehouse associate who thinks the pain comes from her [...] Notes * May DDOB:1955 (69 yo F)Acc No.[id number]:08/15/2024 Patient: Yuli SCHAEFFERMay Provider: Karen Daniels MD :1955 A ge:69 Y S ex:Female Date:08/15/2024 Address:[address] [place], [place] [id number] Subjective: * Chief Complaints: * A cute low back painMycobacterial lung infectionCoronary artery diseaseObesity * HPI: * : T his telehealth visit tenectamiraelsy over 15 minutes with the patient at [...] ocation of provider rendering services: { ...} [address] [place] [address] [place] [address] L ocation of patient: bubba ddress listed in demographics for today's visit P atient identification confirmed using: N ADE hough T elehealth method: T elephone only. Patient [...] children. 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 Her news clerk is at [employer]. * Medications: T akingtiZANidine HCl 4 mg [...] will remain under the care of her news clerk. 7 . A typical squamous cells of [...] orthopedic surgeon and will now see the manufacturer. She will take the meloxicam. 9 . C oronary atherosclerosis due to calcified coronary lesion - I25.84 ? N otes :She has had no angina or chest pain since her last visit. No change in her regimen was made. She has seen a general warehouse associate who thinks the pain comes from her [...] 0 08/15/2024 Generated for Heather haq/Stella/Annesmitting on: 0 10/16/2024 02:52 PM EDT History and Physical Notes * HPI (History of Present Illness) Category Sub-Category Detail Notes Telehealth Location of [facility] rendering services:: {...} [address] [place] [address] Location of patient:: address listed in demographics [...]
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
--- OUTSIDE RECORDS SUMMARY | 2024-10-16 14:52 | XMS_ITS | Clinical Summary ---
Author Organization [address] [facility] Address [address] [place] [address] Phone Care Team Providers Care Brick Layer Name Role Phone Ronnell Daniels MD Primary Care Provider [phone] Allergies Active Allergy Reactions Criticality Noted Date [...] by mouth. Active oxycodone HCl,terephth/as pirin (OXYCODONE JAX-EKBKLADTB-P SA ORAL) Take by mouth. 3 Active [...] 90 each 3 5 08/22/19 26 Active Active Problems Problem Noted Date Diagnosed Date Gallbladder attack 04/23/2023 HTN (hypertension) 03/10/2022 Triple vessel coronary artery disease 03/10/2022 Vascular calcification 03/10/2022 Mixed hyperlipidemia 03/10/2022 COVID-19 03/10/2022 Encounters Date Type Department Care Team Description 08/21/2024 3:06 PM EDT Anesthesia Event [facility] Endoscopy [address] [place] [phone] Jose Manuel Leone MD 08/21/2024 2:21 PM EDT - 08/21/2024 11:59 PM EDT Hospital Encounter [facility] Endoscopy [address] [place] [phone] Darell Francisco MD Steele, Matthew G, CRNA Gomes, Sheldon B, MD Dysphagia, unspecified type Discharge Disposition: Home or Self Care 07/31/2024 8:00 AM EDT - 07/31/2024 11:59 PM EDT Hospital Encounter [facility] Xray [address] [place] [phone] Dysphagia, unspecified type; 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 ([facility] V24, [facility] V28); Blood in sputum Discharge Disposition: Home or Self Care from Last 3 Months Immunizations Name Administration Dates Next Due Zoster recombinant (Shingrix) 19yo and older ,12/11/2019 Surgical History Surgery Date Site/Laterality Comments CHOLECYSTECTOMY PROCEDURE: SD LAPAROSCOPY SURG CHOLECYSTECTOMY KNEE SURGERY PROCEDURE: HISTORICAL [...] DX:Osteopenia Trochanteric bursitis DX:Trochan teric bursitis Sepsis ([facility] V24, [facility] V28) DX:Sepsis (HCC) Necrotizing pneumonia ([facility]/H CC V24, [facility] V28) DX:Necrotizing pneumonia (HC C) DVT (deep venous thrombosis) ([facility]/H[facility] V24, [facility] V28) DX:DVT (deep venous thrombos is) (HCC) Essential hypertension DX:Essent ial hypertension Family [...] 07/31/2024 8:52 AM EDT KSENIA (mycobacterium avium-intracellulare) ([facility] V24, [facility] V28) CBC WITH AUTO DIFFERENTIAL Routine 07/31/2024 [...] type 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 Narrative 08/21/2024 3:38 PM EDT [facility] GI Patient Name: May Procedure Date: 08/21/2024 [...] verified by the physician, the nurse, the discovery manager and the wind tunnel technician in the pre-procedure area in the endoscopy [...] 14 mm. 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 All rights reserved. The codes documented in this report are preliminary and upon enamel burner review may be revised to meet current compliance requirements. Darell Francisco MD 08/21/2024 3:38:47 PM This report has been signed electronically.Darell Francisco MD Number of Addenda: 0 Note Initiated On: 08/21/2024 3:12 PM Scope In: Scope Out: Endoscopy Department at [facility] - [address] [place] [phone] Procedure Note Darell Francisco MD - 08/21/2024 [facility] GI Patient Name: May Procedure Date: 08/21/2024 [...] the physician, the nurse, theanesthetist and the wind tunnel technician in the pre-procedure area in the endoscopy [...] and 14mm. 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 All rights reserved. The codes documented in this report are preliminary and upon enamel burner reviewmay be revised to meet current compliance requirements. Darell Francisco MD 08/21/2024 3:38:47 PM This report has been signed electronically.Darell Francisco MD Number of Addenda: 0 Note Initiated On: 08/21/2024 3:12 PM Scope In: Scope Out: Endoscopy Department at [facility] - [address] [place] [phone] IMPRESSION: - Normal examined duodenum. - Bilious [...] are morphologically identified. 08/26/2024 9:22 AM EDT [facility] Gross Description A. Stomach, biopsy: Labeled stomach biopsy . Received in formalin are three irregular mathews mucosal tissue fragments, ranging from 0.2 cm to 0.5 cm in greatest dimension, which are wrapped in paper and submitted in toto in one cassette, three pieces, multiple levels on one slide. RAMÓN 08/26/2024 9:22 AM EDT [facility] Disclaimer Unless otherwise specified, all tissue is 10% NB formalin fixed and paraffin embedded. 08/26/2024 9:22 AM EDT [facility] Tissue Stomach structure / Unknown 08/21/2024 3:16 PM EDT 08/25/2024 7:30 AM EDT Darell Francisco MD LAB PATHOLOGY ORDERABLES Fi nal Result Performing Organization Address City/State/[facility] Co de Phone Number [facility] [address] [place] [address], * Acid fast bacilli stain (07/31/2024 8:52 AM EDT) AFB Stain Result Inadequate specimen, greater than or equal to 25 squamous epithelial cells per low power field. No Acid Fast Bacilli seen on direct smear 07/31/2024 9:52 AM EDT [facility] Sputum Tracheal structure / Unknown Non-blood Collection / Unknown 07/31/2024 8:52 AM EDT 07/31/2024 9:09 AM EDT Zuleyma Hanna MD LAB MICROBIOLOGY - GENERAL ORDER KAMALJIT Final Result [facility] [address] [place] [address], [place] [phone] * (ABNORMAL) Lipid panel with reflex to direct LDL (07/31/2024 8:45 AM EDT) Cholesterol 276(H) 0 - 200 mg/dL LAB CHEMISTRY METHOD 07/31/2024 10:32 AM EDT [facility] Triglycerides 459(H) 0 - 150 mg/dL LAB CHEMISTRY METHOD 07/31/2024 10:32 AM EDT [facility] HDL 38(L) >=40 mg/dL LAB CHEMISTRY METHOD 07/31/2024 10:32 AM EDT [facility] LDL Calculated 146(H) 0 - 100 mg/dL LAB CHEMISTRY METHOD 07/31/2024 10:32 AM EDT [facility] Comment:Unable to calculate when triglycerides >400 mg/dL. VLDL Cholesterol Tom 91.8 mg/dL LAB CHEMISTRY METHOD 07/31/2024 10:32 AM EDT [facility] Comment:Unable to calculate when triglycerides >400 mg/dL. Non HDL Chol. (LDL+VLDL) 238(H) <145 mg/dL LAB CHEMISTRY METHOD 07/31/2024 10:32 AM EDT [facility] Comment:Unable to calculate when triglycerides >400 mg/dL. Chol/HDL Ratio 7.3(H) 0.0 - 4.4 LAB CHEMISTRY METHOD 07/31/2024 10:32 AM EDT [facility] Blood Venous blood specimen / Unknown Venipuncture / Unknown 07/31/2024 8:45 AM EDT 07/31/2024 9:09 AM EDT us Ronnell Daniels MD LAB BLOOD ORDERABLES Final Res ult [facility] [address] [place] [address], [place] [phone] * (ABNORMAL) CBC auto differential (07/31/2024 8:45 AM EDT) [facility] WBC 7.4 4.8 - 10.8 K/mcL LAB HEMETOLOGY METHOD 07/31/2024 9:18 AM [facility] RBC 4.00 3.80 - 4.80 M/mcL LAB HEMETOLOGY METHOD 07/31/2024 9:18 AM [facility] Hemoglobin 11.9 11.5 - 16.0 g/dL LAB HEMETOLOGY METHOD 07/31/2024 9:18 AM [facility] Hematocrit 36.6 35.0 - 47.0 % LAB HEMETOLOGY METHOD 07/31/2024 9:18 AM [facility] MCV 91.7 79.0 - 98.0 FL LAB HEMETOLOGY METHOD 07/31/2024 9:18 AM [facility] MCH 29.8 27.0 - 32.0 pcg LAB HEMETOLOGY METHOD 07/31/2024 9:18 AM [facility] MCHC 32.5 32.0 - 37.0 g/dL LAB HEMETOLOGY METHOD 07/31/2024 9:18 AM [facility] RDW 13.4 11.0 - 15.0 % LAB HEMETOLOGY METHOD 07/31/2024 9:18 AM [facility] Platelets 272 130 - 400 K/mcL LAB HEMETOLOGY METHOD 07/31/2024 9:18 AM [facility] MPV 9.8 7.0 - 11.0 FL LAB HEMETOLOGY METHOD 07/31/2024 9:18 AM [facility] NRBC 0.0 <1.0 % LAB HEMETOLOGY METHOD 07/31/2024 9:18 AM [facility] NRBC Absolute 0.00 <0.10 K/mcL LAB HEMETOLOGY METHOD 07/31/2024 9:18 AM [facility] Neutrophils Relative 58.5 % LAB HEMETOLOGY METHOD 07/31/2024 9:18 AM [facility] Lymphocytes Relative 28.1 % LAB HEMETOLOGY METHOD 07/31/2024 9:18 AM [facility] Monocytes Relative 7.7 % LAB HEMETOLOGY METHOD 07/31/2024 9:18 AM [facility] Eosinophils Relative 4.3 % LAB HEMETOLOGY METHOD 07/31/2024 9:18 AM [facility] Basophils Relative 0.9 % LAB HEMETOLOGY METHOD 07/31/2024 9:18 AM [facility] Immature Granulocytes Relative 0.5 % LAB HEMETOLOGY METHOD 07/31/2024 9:18 AM [facility] Neutrophils Absolute 4.31 1.50 - 7.00 K/mcL LAB HEMETOLOGY METHOD 07/31/2024 9:18 AM [facility] Lymphocytes Absolute 2.08 1.00 - 5.00 K/mcL LAB HEMETOLOGY METHOD 07/31/2024 9:18 AM [facility] Monocytes Absolute 0.57 0.20 - 1.00 K/mcL LAB HEMETOLOGY METHOD 07/31/2024 9:18 AM [facility] Eosinophils Absolute 0.32 0.00 - 0.50 K/mcL LAB HEMETOLOGY METHOD 07/31/2024 9:18 AM [facility] Basophils Absolute 0.07 0.00 - 0.20 K/mcL LAB HEMETOLOGY METHOD 07/31/2024 9:18 AM [facility] Immature Granulocytes Absolute 0.04(H) 0.00 - 0.03 K/mcL LAB HEMETOLOGY METHOD 07/31/2024 9:18 AM EDT [facility] Blood Venous blood specimen / Unknown Venipuncture / Unknown 07/31/2024 8:45 AM EDT 07/31/2024 9:09 AM EDT Ronnell Daniels MD LAB BLOOD ORDERABLES Final Res ult [facility] [address] [place] [address], [place] [phone] * B-type natriuretic peptide (07/31/2024 8:45 AM EDT) Pathologist [facility] BNP 12 <=100 pcg/mL LAB CHEMISTRY METHOD 07/31/2024 12:35 PM EDT [facility] Blood Venous blood specimen / Unknown Venipuncture / Unknown 07/31/2024 8:45 AM EDT 07/31/2024 9:09 AM EDT us Ronnell Daniels MD LAB BLOOD ORDERABLES Final Res ult [facility] [address] [place] [address], [place] [phone] * (ABNORMAL) Comprehensive metabolic panel (07/31/2024 8:45 AM EDT) Pathologist [facility] Sodium 140 133 - 145 mmol/L LAB CHEMISTRY METHOD 07/31/2024 10:04 AM EDT [facility] Potassium 4.0 3.5 - 5.5 mmol/L LAB CHEMISTRY METHOD 07/31/2024 10:04 AM EDT [facility] Chloride 106 96 - 110 mmol/L LAB CHEMISTRY METHOD 07/31/2024 10:04 AM EDT [facility] CO2 25 21 - 32 mmol/L LAB CHEMISTRY METHOD 07/31/2024 10:04 AM EDT [facility] Anion Gap 9 3 - 11 LAB CHEMISTRY METHOD 07/31/2024 10:04 AM [facility] Glucose 110(H) 70 - 100 mg/dL LAB CHEMISTRY METHOD 07/31/2024 10:04 AM [facility] BUN 26(H) 5 - 25 mg/dL LAB CHEMISTRY METHOD 07/31/2024 10:04 AM [facility] Creatinine 1.35(H) 0.50 - 1.10 mg/dL LAB CHEMISTRY METHOD 07/31/2024 10:04 AM [facility] eGFR 43(L) >=60 mL/min/1. 73m2 LAB CHEMISTRY METHOD 07/31/2024 10:04 AM [facility] Comment:Calculation based on the Chronic Kidney Disease Epidemiology Collaboration (CKD-EPI) equation refit without adjustment for race. BUN/Creatinine Ratio 19.3 LAB CHEMISTRY METHOD 07/31/2024 10:04 AM [facility] Calcium 9.3 8.5 - 10.5 mg/dL LAB CHEMISTRY METHOD 07/31/2024 10:04 AM [facility] AST (SGOT) 22 10 - 42 unit/L LAB CHEMISTRY METHOD 07/31/2024 10:04 AM [facility] ALT (SGPT) 47 10 - 60 unit/L LAB CHEMISTRY METHOD 07/31/2024 10:04 AM [facility] Alkaline Phosphatase 153(H) 42 - 121 unit/L LAB CHEMISTRY METHOD 07/31/2024 10:04 AM [facility] Total Protein 6.4 6.0 - 8.0 g/dL LAB CHEMISTRY METHOD 07/31/2024 10:04 AM [facility] Albumin 3.9 3.2 - 5.0 g/dL LAB CHEMISTRY METHOD 07/31/2024 10:04 AM [facility] Total Bilirubin 0.4 0.0 - 1.4 mg/dL LAB CHEMISTRY METHOD 07/31/2024 10:04 AM EDT [facility] Blood Venous blood specimen / Unknown Venipuncture / Unknown 07/31/2024 8:45 AM EDT 07/31/2024 9:09 AM EDT us Ronnell Daniels MD LAB BLOOD ORDERABLES Final Res ult [facility] [address] [place] [address], * XR Esophagram (07/31/2024 8:32 AM EDT) [...] Signed Date: 07/31/2024 13:50 ET Workstation ID: [id number] Transcribed By: Self Edit Transcribed Date: 07/31/2024 10:30 ET Resident/PA/SCIENTIFIC PHOTOGRAPHER: Malena Landers Narrative 07/31/2024 1:50 PM EDT FINDINGS: Double contrast esophagram performed. COMPARISON: No prior esophagram imaging HISTORY: Patient is a 69-year-old female with history of dysphagia with both solids and liquids Corporation Officer radiographs: 1 view chest radiograph demonstrates cardiac [...] history of dysphagia withboth solids and liquids Corporation Officer radiographs: 1 view chest radiograph demonstrates cardiac [...] Signed Date: 07/31/2024 13:50 ET Workstation ID: [id number] Transcribed By: Self Edit Transcribed Date: 07/31/2024 10:30 ET Resident/PA/SCIENTIFIC PHOTOGRAPHER: Malena Landers us Bk [employer]egan FLUOROSCOPY PROCEDURES Leti l Result from Last 3 Months Insurance MEDICARE [facility] Care Teams Brick Layer Relationship Specialty Start Date End Date Ronnell Daniels MD [address] [place] [id number] PCP - General 04/11/19
--- OUTSIDE RECORDS SUMMARY | 2024-10-16 14:52 | XMS_ITS | Patient Health Record ---
Author Organization [facility] Address [address] [place] [address] Care Team Providers Care Visual Education Teacher Name Role Phone Asad Tripp Primary Care Provider Ronnell Connor Unavailable [phone] Reason For Referral No Information Medications Medication [...] Status W/U Status Risk Notes Problem Dysphagia (57466739) Dysphagia (787.20) Active confirmed Problem Colon cancer screening (589250243) Colon cancer screening (V76.51) Active confirmed Problem Gastroesophageal reflux disease (286396073) GERD (gastroesopha geal reflux disease) (530.81) Active confirmed Plan Of Treatment Future Test Test Name Order Date UPPER GI ENDOSCOPY [place] DILATION OF ESOPH 03/31/2014 COLONOSCOPY 03/31/2014 Insurance Providers Payer Name Payer Address Payer Phone Subscriber Number Group Number Insured Name Patient Relationship to Insured Coverage Start Date Coverage End Date [facility] [address] [facility] [phone] [id number] May Self - patient is the insured Medical (General) History Medical History History ICD Code Denies IA,DM,CVA,Lung disease,renal dise ase Depression GERD Surgical History Surgery Date(Month/Year) Knee surgeries Shoulder surgery-right--rotator cuff Lumpectomy X2--benign Elbow surgery
--- OUTSIDE RECORDS SUMMARY | 2024-10-16 14:53 | XMS_ITS | Patient Health Record ---
Author Organization Ronnell Daniels III, MD Address [address] [place] [address] Care Team Providers Care Sanitation Worker Cleaning Equipment Name Role Phone Ronnell Daniels Primary Care [...] date:01/28/2024 05:37:36 AM Interpretation: Performing Lab: Notes/Report: [address] [place] [address] Mammography Report Signed Patient: MR#: [id number] : 1955 Acct:[id number] Age/Sex: 68 / F ADM Date: 01/09/24 Loc: HO.MAMMO Attending Dr: Ronnell Daniels MD Ordering Physician: Ronnell Daniels MD Results: 1Negativ e Date of Service: 01/09/24 Follow Up: 1 Year From Orig inal Mammogram Procedure(s): MM tomosynthesis screening BI Accession Number(s): [id number] cc: Ronnell Daniels MD EXAMINATION: MM SCREENING [...] 01/21/24 0905 DD/ 1435 TD/TT: 01/09/24 1448 Refrigeration Unit Repairer: [facility] [address] [place] [address] Mammography Report Signed Patient: ChinMay MR#: [id number] : 1955 Acct:[id number] Age/Sex: 68 / F ADM Date: 01/09/24 Loc: HO.MAMMO Attending Dr: Ronnell Daniels MD Ordering Physician: Ronnell Daniels MD Results: 1Negativ e Date of Service: Follow Up: 1 Year From Orig ina Mammogram Procedure(s): MM krzysztof osynthesis screening BI Accession Number(s): [id number] cc: Ronnell Daniels MD EXAMINATION: MM SCREENING [...] By: Annette Quiroz i, DO Signed By: <Electron ically signed by Annette Banuelos DO in OV> 01/21/24 0905 DD/ 1435 TD/TT: 01/09/24 1448 Refrigeration Unit Repairer: Reason For Referral No Information Medications Medication SIG (Take, Route, Frequency, Duration) Notes Start Date End Date Status Wegovy 1 MG/0.5ML 0.5 mL Subcutaneous weekly 11/20/2023 Active Asmanex HFA Active Albuterol Sulfate HFA 108 (90 Base) MCG/ACT USE 2 INHALATIONS EVERY 4 HOURS NEEDED Active Wellbutrin SR 150 MG 1 tablet Orally Twi ce a day Active LORazepam 1 MG 1 tablet at bedtime as needed Orally Twice a day 08/19/2019 Active Atorvastatin Calcium 10 mg TAKE 1 TABLET DAILY Active Ibuprofen 800 MG 1 tablet with food o r milk as needed Orally every 8 hrs Active tiZANidine HCl 4 mg 1 tablet Orally thre e times a day Active Meloxicam 15 mg TAKE 1 TABLET DAILY Active Albuterol Sulfate (2.5 MG/3ML) 0.083% 3 mL as needed Inhalation twice a day As needed J45.909 Asthma 07/02/2024 Active Social History Tobacco Use: Social History [...] Problem Status W/U Status Risk Notes Problem 9217333 Former smoker (Z87.891) Active confirmed She seems highl y motivated not to smoke. We formulated a plan to prevent relapse in times of stress and illness. Problem 732246820 Overweight (E66.3) Active confirmed We reviewed her diet and nutrition today. I recommended weight loss at a rate of one half of a pound per week through a diet restricted in fat calories and sodium combined with regular physical activity.A change was made in the dose of the Wegovy. She will now take 2.4 mg weekly. Problem 41067184 Anxiety (F41.9) Active confirmed She has felt a great deal of anxiety lately. She is going to see her therapist. She declined my offer of medication. Problem 675075763 Other obesity due to excess calories (E66.09) Active confirmed Her body mass index is now in the overweight range. The Wegovy was increased to 1.0 mg by subcutaneous injection weekly. Problem Atherosclerosis of coronary artery (543322896) Coronary atherosclerosis due to calcified coronary lesion (I25.84) Active confirmed She has had no angina or chest pain since her last visit. No change in her regimen was made. She has seen a sponge clipper who thinks the pain comes from her lungs. Problem 495516375 Atypical squamous cells of undetermined significance on cytologic smear of cervix (ASC-US) (R87.610) Active confirmed Her previous physicians records indicate a history of positivity for HPV and ACUS. She has an upcoming appointment and I will attempt to find old records. Problem 716088764 Cervical high risk human papillomavirus (HPV) DNA test positive (R87.810) Active confirmed She will remain under the care of her spinner open end. Problem Hypertension (52793380) HTN (hypertension) (I10) Active confirmed Her blood pressure is in the normal range today. No change in her regimen was recommended. Problem 518591567 Pulmonary nodule (R91.1) Active confirmed The CT scan of February 18, 2022 shows possible increase in a 3 mm nodule right upper lobe. This will be subject to surveillance. Problem 446660307 Pedal edema (R60.0) Active confirmed She says she wa s bitten by a spider and now has bilateral edema of the feet butt can put her shoes and socks on. I recommended elevating her legs and using a topical hydroccortisone on the left foot to reduce the itching. A rate feet visit was scheduled for Sunday of this week. Problem 157391461 Primary osteoarthritis involving multiple joints (M15.0) Active confirmed She has finishe d with the orthopedic surgeon and will now see the cone former. She will take the meloxicam. Problem 45139210 PTSD (post-traumatic stress disorder) (F43.10) Active confirmed She will continue with therapy. Problem Hyperlipidaemia (73859769) Hyperlipidemia, unspecified hyperlipidemia type (E78.5) Active confirmed No change in he r medications was made today. Comprehensive blood work with fasting lipids has been ordered prior to her next visit. Problem 945421441 History of depression (Z86.59) Active confirmed She says today that she has stopped all of her medications. It was unclear if she was taking the antidepressants. I strongly recommended she take them. I will arrange close follow-up with her. She adamantly denied any suicidal thoughts or desire to hurt himself. Problem 14981809 Sciatica of right side (M54.31) Active confirmed Her back pain i s significantly better than recently. She will continue on current treatment. Problem Asthma without status asthmaticus (92459272) Asthma, unspecified asthma severity, unspecified whether complicated, unspecified whether persistent (J45.909) Active confirmed She was breathing comfortably today and her asthmatic bronchitis has resolved. She was encouraged to call me if it worsens. Problem 769890045 Osteopenia, unspecified location (M85.80) Active confirmed She will have a bone density every 2 years. I recommended 500 mg of calcium per day orally with a multiple vitamin. She says she has been doing this. She denies any new bone pain in her back. Problem 20526223 Closed nondisplaced fracture of patella with routine healing, unspecified fracture morphology, unspecified laterality, subsequent encounter (S82.009D) Active confirmed The pain in her knee is still present but is slowly diminishing as the wound heals. 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 I gently discussed with [...] help arrived, had a successful strategy. Problem 101929711 Closed fracture of right wrist with routine healing, subsequent encounter (S62.101D) Active confirmed I encouraged he r to continue her visits to the orthopedist and she said she would do so. Problem 949300573 Mycobacterium avium infection (A31.0) Active confirmed She is refusing to take her antibiotics for unclear reasons. She will proceed to the CT scan and the pulmonary strategy execution consultant, Dr. Beltre, and we will reevaluate the status of her infection. I strongly advised her to finish the antibiotics. Problem 527676725 Nonspecific low back pain (M54.50) Active confirmed She is beginnin g to improve. She will continue to avoid exertion and rest as much as possible, use a heating pad, and use a combination of ibuprofen and acetaminophen. Vital Signs Heart Rate 95 /min 07/02/2024 Temperature 97.6 degrees Fahrenheit 07/02/2024 Blood pressure diastolic 85 mm Hg 07/02/2024 Height 61 in 08/15/2024 Blood pressure systolic 139 mm Hg 07/02/2024 Weight 142 lbs 08/15/2024 BMI 26.83 kg/m2 08/15/2024 Encounters Encounter Location Date Provider Diagnosis Ronnell Daniels III, MD [address] [place] [address] [place] [phone] 10/23/2023 Ronnell Daniels Hyperlipidemia, unspecified hyperlipidemia type E78.5 ; Other obesity due to excess calories E66.09 ; Asthma, unspecified asthma severity, unspecified whether complicated, unspecified whether persistent J45.909 ; History of depression Z86.59 ; Cervical high risk human papillomavirus (HPV) DNA test positive R87.810 and Primary osteoarthritis involving multiple joints M15.0 Ronnell Daniels III, MD [address] [place] [address] [place] [id number] 11/20/2023 Ronnell Daniels Hyperlipidemia, unspecified hyperlipidemia type E78.5 ; Coronary atherosclerosis due to calcified coronary lesion I25.84 ; Other obesity due to excess calories E66.09 ; HTN (hypertension) I10 ; Former smoker Z87.891 and History of depression Z86.59 Ronnell Daniels III, MD [address] [place] [address] [address] [place] [id number] 12/18/2023 Ronnell Daniels Hyperlipidemia, unspecified hyperlipidemia type E78.5 ; Asthma, unspecified asthma severity, unspecified whether complicated, unspecified whether persistent J45.909 ; History of depression Z86.59 ; Former smoker Z87.891 and Overweight E66.3 Ronnell Daniels III, MD [address] [place] [address] [address] [place] [phone] 01/14/2024 Ronnell Daniels Hyperlipidemia, unspecified hyperlipidemia type E78.5 ; Overweight E66.3 ; Asthma, unspecified asthma severity, unspecified whether complicated, unspecified whether persistent J45.909 ; History of depression Z86.59 ; Former smoker Z87.891 ; Primary osteoarthritis involving multiple joints M15.0 ; Coronary atherosclerosis due to calcified coronary lesion I25.84 and HTN (hypertension) I10 Ronnell Daniels III, MD [address] [place] [address] [address] [place] [phone] 06/24/2024 Ronnell Daniels Hyperlipidemia, unspecified hyperlipidemia type E78.5 ; Pedal edema R60.0 ; Overweight E66.3 ; Asthma, unspecified asthma severity, unspecified whether complicated, unspecified whether persistent J45.909 ; History of depression Z86.59 and Former smoker Z87.891 Ronnell Daniels III, MD [address] [place] [address] [address] [place] [phone] 06/27/2024 Ronnell Daniels Hyperlipidemia, unspecified hyperlipidemia type E78.5 ; Insect bite without infection W57.XXXA ; Overweight E66.3 ; History of depression Z86.59 ; Osteopenia, unspecified location M85.80 ; Cervical high risk human papillomavirus (HPV) DNA test positive R87.810 ; Sciatica of right side M54.31 ; Coronary atherosclerosis due to calcified coronary lesion I25.84 and Former smoker Z87.891 Ronnell Daniels III, MD [address] [place] [address] [address] [place] [phone] 07/02/2024 Ronnell Daniels Hyperlipidemia, unspecified hyperlipidemia type E78.5 ; Mycobacterium avium infection A31.0 ; Overweight E66.3 ; Asthma, unspecified asthma severity, unspecified whether complicated, unspecified whether persistent J45.909 ; History of depression Z86.59 ; PTSD (post-traumatic stress disorder) F43.10 ; Former smoker Z87.891 and Coronary atherosclerosis due to calcified coronary lesion I25.84 Ronnell Daniels III, MD [address] [place] [address] [place] [id number] 08/12/2024 Ronnell Daniels Hyperlipidemia, unspecified hyperlipidemia type E78.5 ; Mycobacterium avium infection A31.0 ; Overweight E66.3 ; History of depression Z86.59 ; PTSD (post-traumatic stress disorder) F43.10 ; Primary osteoarthritis involving multiple joints M15.0 ; Osteopenia, unspecified location M85.80 and Nonspecific low back pain M54.50 Ronnell Daniels III, MD [address] [place] [address] [place] [phone] 08/15/2024 Ronnell Daniels Hyperlipidemia, unspecified hyperlipidemia type [...] HTN (hypertension) I10 and Former smoker Z87.891 Ronnell Daniels III, MD [address] [place] [address] [place] [phone] 01/28/2024 Ronnell Daniels Hyperlipidemia, unspecified hyperlipidemia type E78.5 Ronnell Daniels III, MD [address] [place] [address] [place] [phone] 04/24/2024 Ronnell Daniels III, MD [address] [place] [address] [place] [phone] 07/24/2024 Ronnell Daniels III, MD [address] [place] [address] [place] [phone] 08/11/2024 Ronnell Daniels Assessments Encounter Date Diagnosis (ICD Code) Assessment Notes T reatment Notes Treatment Clinical Notes 10/23/2023 Other obesity due to excess calories [...] regimen was made. She has seen a sponge clipper who thinks the pain comes from her [...] scheduled for Sunday of this week. 06/24/2024 Hyperlipidemia, unspecified hyperlipidemia type (ICD-10 - E78.5) No change in her medications was made today. Comprehensive blood work with fasting lipids has been ordered prior to her next visit. 06/27/2024 Hyperlipidemia, unspecified hyperlipidemia type (ICD-10 - E78.5) No change in her medications was made today. Comprehensive blood work with fasting lipids has been ordered prior to her next visit. 06/27/2024 Insect bite without infection (ICD-10 - W57.XXXA) She is going to use topical hydrocortisone and warm soaks. She will elevate the leg. He will come to the office for inspection. 07/02/2024 Hyperlipidemia, unspecified hyperlipidemia type (ICD-10 - E78.5) No change in her medications was made today. Comprehensive blood work with fasting lipids has been ordered prior to her next visit. 07/02/2024 Mycobacterium avium infection (ICD-10 - A31.0) She is refusing to take her antibiotics for unclear reasons. She will proceed to the CT scan and the pulmonary strategy execution consultant, Dr. Beltre, and we will reevaluate the status of her infection. I strongly advised her to finish the antibiotics. 08/12/2024 Hyperlipidemia, unspecified hyperlipidemia type (ICD-10 - E78.5) No change in her medications was made today. Comprehensive blood work with fasting lipids has been ordered prior to her next visit. 08/12/2024 Mycobacterium avium infection (ICD-10 - A31.0) She is refusing to take her antibiotics for unclear reasons. She will proceed to the CT scan and the pulmonary strategy execution consultant, Dr. Beltre, and we will reevaluate the status of her infection. I strongly advised her to finish the antibiotics. 08/15/2024 Hyperlipidemia, unspecified hyperlipidemia type (ICD-10 - [...] use a combination of ibuprofen and acetaminophen. 01/28/2024 Hyperlipidemia, unspecified hyperlipidemia type (ICD-10 - E78.5) No change in her medications was made today. Comprehensive blood work with fasting lipids has been ordered prior to her next visit. 10/23/2023 Asthma, unspecified asthma severity, unspecified whether [...] to call me if it worsens. 06/24/2024 Overweight (ICD-10 - E66.3) We reviewed her diet and nutrition today. I recommended weight loss at a rate of one half of a pound per week through a diet restricted in fat calories and sodium combined with regular physical activity.A change was made in the dose of the Wegovy. She will now take 2.4 mg weekly. 06/27/2024 Overweight (ICD-10 - E66.3) We reviewed her diet and nutrition today. I recommended weight loss at a rate of one half of a pound per week through a diet restricted in fat calories and sodium combined with regular physical activity.A change was made in the dose of the Wegovy. She will now take 2.4 mg weekly. 07/02/2024 Overweight (ICD-10 - E66.3) We reviewed her diet and nutrition today. I recommended weight loss at a rate of one half of a pound per week through a diet restricted in fat calories and sodium combined with regular physical activity.A change was made in the dose of the Wegovy. She will now take 2.4 mg weekly. 08/12/2024 Overweight (ICD-10 - E66.3) We reviewed her diet and nutrition today. I recommended weight loss at a rate of one half of a pound per week through a diet restricted in fat calories and sodium combined with regular physical activity.A change was made in the dose of the Wegovy. She will now take 2.4 mg weekly. 08/15/2024 Overweight (ICD-10 - E66.3) We reviewed her diet and nutrition today. I recommended weight loss at a rate of one half of a pound per week through a diet restricted in fat calories and sodium combined with regular physical activity.A change was made in the dose of the Wegovy. She will now take 2.4 mg weekly. 10/23/2023 History of depressio n (ICD-10 - [...] thoughts or desire to hurt himself. 06/24/2024 Asthma, unspecified asthma severity, unspecified whether complicated, unspecified whether persistent (ICD-10 - J45.909) She was breathing comfortably today and her asthmatic bronchitis has resolved. She was encouraged to call me if it worsens. 06/27/2024 History of depressio n (ICD-10 - Z86.59) She says today that she has stopped all of her medications. It was unclear if she was taking the antidepressants. I strongly recommended she take them. I will arrange close follow-up with her. She adamantly denied any suicidal thoughts or desire to hurt himself. 07/02/2024 Asthma, unspecified asthma severity, unspecified whether complicated, unspecified whether persistent (ICD-10 - J45.909) She was breathing comfortably today and her asthmatic bronchitis has resolved. She was encouraged to call me if it worsens. 08/12/2024 History of depressio n (ICD-10 - Z86.59) She says today that she has stopped all of her medications. It was unclear if she was taking the antidepressants. I strongly recommended she take them. I will arrange close follow-up with her. She adamantly denied any suicidal thoughts or desire to hurt himself. 08/15/2024 Asthma, unspecified asthma severity, unspecified whether complicated, unspecified whether persistent (ICD-10 - J45.909) She was breathing comfortably today and her asthmatic bronchitis has resolved. She was encouraged to call me if it worsens. 10/23/2023 Cervical high risk human papillomavirus (HPV) DNA test positive (ICD-10 - R87.810) She will remain under the care of her spinner open end. 11/20/2023 Former smoker (ICD-1 0 - Z87.891) [...] relapse in times of stress and illness. 06/24/2024 History of depressio n (ICD-10 - Z86.59) [...] any new bone pain in her back. 07/02/2024 History of depressio n (ICD-10 - [...] - F43.10) She will continue with therapy. 08/15/2024 History of depressio n (ICD-10 - Z86.59) She says today that she has stopped all of her medications. It was unclear if she was taking the antidepressants. I strongly recommended she take them. I will arrange close follow-up with her. She adamantly denied any suicidal thoughts or desire to hurt himself. 10/23/2023 Primary osteoarthritis involving multiple joints (ICD-10 - M15.0) She has finished with the orthopedic surgeon and will now see the cone former. She will take the meloxicam. 11/20/2023 History [...] orthopedic surgeon and will now see the cone former. She will take the meloxicam. 06/24/2024 Former smoker (ICD-1 0 - Z87.891) 06/27/2024 Cervical high risk human papillomavirus (HPV) DNA test positive (ICD-10 - R87.810) She will remain under the care of her spinner open end. 07/02/2024 PTSD (post-traumatic stress disorder) (ICD-10 - F43.10) She will continue with therapy. 08/12/2024 Primary osteoarthritis involving multiple joints (ICD-10 - M15.0) She has finished with the orthopedic surgeon and will now see the cone former. She will take the meloxicam. 08/15/2024 Cervical high risk human papillomavirus (HPV) DNA test positive (ICD-10 - R87.810) She will remain under the care of her spinner open end. 01/14/2024 Coronary atherosclerosis due to calcified coronary lesion (ICD-10 - I25.84) She has had no angina or chest pain since her last visit. No change in her regimen was made. She has seen a sponge clipper who thinks the pain comes from her lungs. 06/27/2024 Sciatica of right side (ICD-10 - M54.31) Her back pain is significantly better than recently. She will continue on current treatment. 07/02/2024 Former smoker (ICD-1 0 - Z87.891) She seems highly motivated not to smoke. We formulated a plan to prevent relapse in times of stress and illness. 08/12/2024 Osteopenia, unspecified location (ICD-10 - M85.80) She will have a bone density every 2 years. I recommended 500 mg of calcium per day orally with a multiple vitamin. She says she has been doing this. She denies any new bone pain in her back. 08/15/2024 Atypical squamous cells of undetermined significance on cytologic smear of cervix (ASC-US) (ICD-10 - R87.610) Her previous physicians records indicate a history of positivity for HPV and ACUS. She has an upcoming appointment and I will attempt to find old records. 01/14/2024 HTN (hypertension) (ICD-10 - I10) Her blood pressure is in the normal range today. No change in her regimen was recommended. 06/27/2024 Coronary atherosclerosis due to calcified coronary lesion (ICD-10 - I25.84) She has had no angina or chest pain since her last visit. No change in her regimen was made. She has seen a sponge clipper who thinks the pain comes from her lungs. 07/02/2024 Coronary atherosclerosis due to calcified coronary lesion (ICD-10 - I25.84) She has had no angina or chest pain since her last visit. No change in her regimen was made. She has seen a sponge clipper who thinks the pain comes from her lungs. 08/12/2024 Nonspecific low back pain (ICD-10 - M54.50) A follow-up visit in short order was arranged. She will use her medication as well as ibuprofen and heat and rest. 08/15/2024 Primary osteoarthritis involving multiple joints (ICD-10 - M15.0) She has finished with the orthopedic surgeon and will now see the cone former. She will take the meloxicam. 06/27/2024 Former smoker (ICD-1 0 - Z87.891) She seems highly motivated not to smoke. We formulated a plan to prevent relapse in times of stress and illness. 08/15/2024 Coronary atherosclerosis due to calcified coronary lesion (ICD-10 - I25.84) She has had no angina or chest pain since her last visit. No change in her regimen was made. She has seen a sponge clipper who thinks the pain comes from her lungs. 08/15/2024 HTN (hypertension) (ICD-10 - I10) Her blood pressure is in the normal range today. No change in her regimen was recommended. 08/15/2024 Former smoker (ICD-1 0 - Z87.891) She seems highly motivated not to smoke. We formulated a plan to prevent relapse in times of stress and illness. Plan Of Treatment Pending Test Test Name Order Date PROFILE, FASTING (COMPREHENSIVE METABOLI C) 12/01/2020 PROFILE, FASTING (COMPREHENSIVE METABOLI C) 07/15/2021 PROFILE, FASTING (COMPREHENSIVE METABOLI C) 12/09/2018 PROFILE, FASTING (COMPREHENSIVE METABOLI C) 02/02/2022 PROFILE, FASTING (COMPREHENSIVE METABOLI C) 04/12/2021 PROFILE, FASTING (COMPREHENSIVE METABOLI C) 07/02/2024 PROFILE, FASTING (COMPREHENSIVE METABOLI C) 06/16/2019 PROFILE, RANDOM (COMPREHENSIVE METABOLIC ) 04/14/2020 LIPID PANEL 06/16/2019 LIPID PANEL 07/15/2021 LIPID PANEL 12/09/2018 GGT 04/14/2020 BRAIN NATRIURETIC PEPTIDE (BNP) 07/03/19 25 CBC w DIFF 07/02/2024 CBC w DIFF 12/01/2020 CBC w DIFF 06/16/2019 CBC w DIFF 07/15/2021 CBC w DIFF 02/02/2022 CBC w DIFF 12/09/2018 CBC w DIFF 04/12/2021 CBC w DIFF 04/14/2020 Lipid Panel 07/02/2024 Lipid Panel 12/01/2020 Lipid Panel 02/02/2022 Lipid Panel 04/12/2021 CA stress test 02/02/2022 CA stress test 03/09/2022 Insurance Providers Payer Name Payer Address Payer Phone Subscriber Number Group Number Insured Name Patient Relationship to Insured Coverage Start Date Coverage End Date MEDICARE NGS [address] [place] [phone] [id number] May Self - patient is the insured [facility] [address] [place], [place] [id number] [phone] [id number] May Self - patient is the insured [...] to undergo colonoscopy Bilateral necrotizing cavitary pneumonia [facility] November 2021 Surgical History Surgery Date(Month/Year) No history right wrist colle's fracture, fall 3 right humerus fracture, fall 05/2022 Left lung Bx 2021 Gallbladder right shoulder surgery right knee surgery x3 2018 Hospitalization History Reason Date(Month/Year) No history Hypertension 03/2019
== END 2024-10-16 14:07 | disposition home or self-care (01) ==
LOC: HO.HOP 14:06
PROVIDERS: PCP Internal Medicine Medical Oncology; Visit Provider Clinical Nurse Specialist Psychiatric/Mental Health
DX: F43.10 Post-traumatic stress disorder, unspecified (principal); F40.01 Agoraphobia with panic disorder; F33.9 Major depressive disorder, recurrent, unspecified
CPT/HCPCS: 99214

== ENCOUNTER 2024-11-04 13:47 | Outpatient (AMB) | payer MEDICARE, SELFPAY ==
--- OUTSIDE RECORDS SUMMARY | 2024-07-24 06:15 | XMS_ITS ---
Author Organization Ronnell Daniels III, MD Address [address] [place] [address] Care Team Providers Care Policy Service Coordinator Name Role Phone Ronnell Daniels Primary Care Provider [phone] REASON FOR VISIT cancelled appt for tomorrow Social History Sex Assigned At : Social History Observation Description Sex Assigned At Female Encounters Encounter Location Date Provider Diagnosis Ronnell Daniels III, MD [address] [place] [address] [place] [address] 07/24/2024 Ronnell Daniels Plan Of Treatment No Information Progress Notes * May DDOB:1955 (69 yo F)Acc No.[id number]:07/24/2024 Patient: H ILL, May :1955 A ge:69 Y S ex:Female Address:[address] [place] [address], [phone] * true * Date: Generated for Printi ng/Fadannieg/eTransmitting on: 0 11/04/2024 05:38 PM EDT
--- OUTSIDE RECORDS SUMMARY | 2024-07-25 13:15 | XMS_ITS ---
Author Organization Ronnell Daniels III, MD Address [address] [place] [address] [place] [address] Care Team Providers Care Granulating Machine Operator Name Role Phone Ronnell Daniels Primary Care Provider [phone] Allergies Allergen (clinical drug ingredient) Drug/Non Drug [...] Date Provider Diagnosis Ronnell Daniels III, MD [address] [place] [address] [place] [address] 07/25/2024 Ronnell Daniels Hyperlipidemia, unspecified hyperlipidemia type [...] Orally every 8 hrs Progress Notes * May DDOB:1955 (69 yo F)Acc No.[id number]:07/25/2024 Progress Notes Patient: Yuli SCHAEFFER[place] Provider: Karen Daniels MD :1955 A ge:69 Y S ex:Female Date:07/25/2024 Address:[address] [place] [address] [place] [id number] Subjective: * Chief Complaints: * 1 . [...] undergo colonoscopy, Bilateral necrotizing cavitary pneumonia [facility] November 2021. * Surgical History: r ight knee surgery x3 2018, right shoulder surgery , Gallbladder , Left [...] children. 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 * Medications: T aking Meloxicam [...] MD Date: 0 07/25/2024 Generated for Heather haq/Stella/Nickitting on: 0 11/04/2024 05:39 PM EDT History and Physical Notes * [...]
--- OUTSIDE RECORDS SUMMARY | 2024-08-11 07:27 | XMS_ITS ---
Author Organization Ronnell Daniels III, MD Address [address] [place] [address] [place] [address] Care Team Providers Care Software Test Specialist Name Role Phone Ronnell Daniels Primary Care Provider REASON FOR VISIT Rx Request Medications Medication SIG (Take, Route, Fr equency, Duration) Notes Start Date End Date Status tiZANidine HCl 4 mg 1 tablet Orally thre e times a day for 90 days Active Social History Sex Assigned At : Social History Observation Description Sex Assigned At Female Encounters Encounter Location Date Provider Diagnosis Ronnell Daniels III, MD [address] [place] [address] [place] [address] 08/11/2024 Ronnell Daniels Plan Of Treatment Medication Medication Name Sig Start Date Stop Date Notes tiZANidine HCl 4 mg 1 tablet Orally thre e times a day for 90 days Progress Notes * May DDOB:1955 (69 yo F)Acc No.[id number]:08/11/2024 Patient: Yuli SCHAEFFERMay :1955 A ge:69 Y S ex:Female Address:[address] [place] [address], [phone] * Refills Refill tiZANidine HCl Tablet, 4 mg, Orally, 270 Tablet, 1 tablet, three times a day, 90 days, Refills=3 * true * Date: Generated for Thomi eun/Stella/eTransmitting on: 0 11/04/2024 05:39 PM EDT
--- OUTSIDE RECORDS SUMMARY | 2024-08-12 07:00 | XMS_ITS ---
Author Organization Ronnell Daniels III, MD Address [address] [place] [address] [address] [place] [address] Care Team Providers Care Marketing Program Coordinator Name Role Phone Ronnell Daniels Primary [...] Problem Status W/U Status Risk Notes Problem [id number] Nonspecific low back pain (M54.50) Active confirmed She is beginning to improve. She will continue to avoid exertion and rest as much as possible, use a heating pad, and use a combination of ibuprofen and acetaminophen. Vital Signs Height 61 in 08/12/2024 Weight 142 lbs 08/12/2024 BMI 26.83 kg/m2 08/12/2024 Encounters Encounter Location Date Provider Diagnosis Ronnell Daniels III, MD [address] [place] [address] [address] [address] 08/12/2024 Ronnell Daniels Hyperlipidemia, unspecified hyperlipidemia type [...] to the CT scan and the pulmonary cassandra consultant, Dr. Beltre, and we will reevaluate [...] orthopedic surgeon and will now see the college sports assistant. She will take the meloxicam. 08/12/2024 Osteopenia, [...] Notes * May DDOB:1955 (69 yo F)Acc No.[id number]:08/12/2024 Patient: Yuli SCHAEFFERMay Provider: Karen Daniels MD :1955 A ge:69 Y S ex:Female Date:08/12/2024 Address:[address] [place] [address] MADI FAUSTIN [id number] Subjective: * Chief Complaints: * A cute [...] ocation of provider rendering services: { ...} [address] [place] [address] [place] [address] L ocation of patient: a ddress listed [...] children. 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 * Medications: T akingMeloxicam 15 mg [...] to the CT scan and the pulmonary cassandra consultant, Dr. Beltre, and we will reevaluate [...] orthopedic surgeon and will now see the college sports assistant. She will take the meloxicam. 7 . [...] 08/12/2024 Generated for Heather haq/Stella/Annesmitting on: 0 11/04/2024 05:38 PM EDT History and Physical Notes * HPI (History of Present Illness) Category Sub-Category Detail Notes Telehealth Location of [facility] rendering services:: {...} [address] [place], [place] [id number] Location of patient:: address listed in demographics [...]
--- OUTSIDE RECORDS SUMMARY | 2024-08-15 09:45 | XMS_ITS ---
Author Organization Ronnell Daniels III, MD Address [address] [place] [address] [address] [place] [address] Care Team Providers Care Gas Maker Helper Name Role Phone Ronnell Daniels Primary Care [...] Date Provider Diagnosis Ronnell Daniels III, MD [address] [place] [address] [address], [place] [address] 08/15/2024 Ronnell Daniels Hyperlipidemia, unspecified hyperlipidemia type [...] will remain under the care of her associate relations specialist. 08/15/2024 Atypical squamous cells of undetermined significance on cytologic smear of cervix (ASC-US) (ICD-10 - R87.610) Her previous physicians records indicate a history of positivity for HPV and ACUS. She has an upcoming appointment and I will attempt to find old records. 08/15/2024 Primary osteoarthritis involving multiple joints (ICD-10 - M15.0) She has finished with the orthopedic surgeon and will now see the sas developer analyst. She will take the meloxicam. 08/15/2024 Coronary atherosclerosis due to calcified coronary lesion (ICD-10 - I25.84) She has had no angina or chest pain since her last visit. No change in her regimen was made. She has seen a third helper who thinks the pain comes from her [...] Notes * May DDOB:1955 (69 yo F)Acc No.[id number]:08/15/2024 Patient: Yuli SCHAEFFERMay Provider: Karen Daniels MD :1955 A ge:69 Y S ex:Female Date:08/15/2024 Address:[address] [place], [place] [id number] Subjective: * Chief Complaints: * A cute [...] ocation of provider rendering services: { ...} [address] [place] [address] [place] [address] L ocation of patient: bubba ddress listed [...] children. 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 Her associate relations specialist is at [facility]. * Medications: T akingtiZANidine HCl 4 mg [...] will remain under the care of her associate relations specialist. 7 . A typical squamous cells of [...] orthopedic surgeon and will now see the sas developer analyst. She will take the meloxicam. 9 . C oronary atherosclerosis due to calcified coronary lesion - I25.84 ? N otes :She has had no angina or chest pain since her last visit. No change in her regimen was made. She has seen a third helper who thinks the pain comes from her [...] 08/15/2024 Generated for Heather haq/Stella/Annesmitting on: 0 11/04/2024 05:38 PM EDT History and Physical Notes * HPI (History of Present Illness) Category Sub-Category Detail Notes Telehealth Location of [facility] rendering services:: {...} [address] [place] [address] Location of patient:: address listed in demographics [...]
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
--- OUTSIDE RECORDS SUMMARY | 2024-11-04 17:39 | XMS_ITS | Clinical Summary ---
Author Organization [facility] Address [address] [place] [address] Phone Care Team Providers Care Drug Safety Coordinator Name Role Phone Ronnell Daniels MD Primary Care Provider [phone] Allergies Active Allergy Reactions Criticality Noted Date [...] by mouth. Active oxycodone HCl,terephth/as pirin (OXYCODONE [id number] SA ORAL) Take by mouth. 3 Active [...] Description 08/21/2024 3:06 PM EDT Anesthesia Event [facility] [address] [place] [address] Jose Manuel Leone MD 08/21/2024 2:21 PM EDT - 08/21/2024 11:59 PM EDT Hospital Encounter [facility] [address] [place] [address] Darell Francisco MD Steele, Matthew G, CRNA Gomes, Sheldon B, MD Dysphagia, unspecified type Discharge Disposition: Home or Self Care from Last 3 Months Immunizations Name Administration Dates Next Due Zoster recombinant (Shingrix) 19yo and older ,12/11/2019 Surgical History Surgery Date Site/Laterality Comments CHOLECYSTECTOMY PROCEDURE: [place] LAPAROSCOPY SURG CHOLECYSTECTOMY KNEE SURGERY PROCEDURE: HISTORICAL [...] DX:Osteopenia Trochanteric bursitis DX:Trochan teric bursitis Sepsis ([facility]/HCC V24, [facility] V28) DX:Sepsis (HCC) Necrotizing pneumonia (CMS/H CC V24, [facility] V28) DX:Necrotizing pneumonia (HC C) DVT (deep venous thrombosis) (CMS/HCC V24, [facility] V28) DX:DVT (deep venous thrombos is) ([facility]) Essential hypertension DX:Essent ial hypertension Family History [...] 01/28/2022 Social Influencers of Health Screening 01/28/2022 Depression Screening 02/20/2024 COVID-19 Vaccine (1 - 2023-2 5 season) 2024 Influenza Vaccine (#1) 2024 Hypertension/CHF/CAD Annual BMP [...] 08/21/2024 3:16 PM EDT Dysphagia, unspecified type COMPREHENSIVE METABOLIC PANEL Routine 07/31/2024 8:45 AM EDT Hyperlipidemia Severely overweight Hypertensive disease LIPID PANEL WITH REFLEX TO DIRECT LDL Routine 07/31/2024 8:45 AM EDT Hyperlipidemia Severely overweight Hypertensive disease from Last 3 Months or Most Recently Relevant to Health Maintenance Results * EGD Anesthesia - MAC; [facility] ENDOSCOPY (08/21/2024 3:34 PM EDT) Anatomical [...] for retreatment. Narrative 08/21/2024 3:38 PM EDT [facility] GI Patient Name: Laverne Dunlap Procedure Date: [...] verified by the physician, the nurse, the ice puller and the lab animal technician in the pre-procedure area in the [...] 14 mm. 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 All rights reserved. The codes documented in this report are preliminary and upon hydrometallurgical engineer review may be revised to meet current compliance requirements. Darell Francisco MD 08/21/2024 3:38:47 PM This report has been signed electronically.Darell Francisco MD Number of Addenda: 0 Note Initiated On: 08/21/2024 3:12 PM Scope In: Scope Out: Endoscopy Department at [facility] - [address] [place] [phone] Procedure Note Darell Francisco MD - 08/21/2024 [facility] GI Patient Name: Laverne Chin Procedure Date: 08/21/2024 3:12 PM Date of [...] the physician, the nurse, theanesthetist and the lab animal technician in the pre-procedure area in the [...] and 14mm. 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 All rights reserved. The codes documented in this report are preliminary and upon hydrometallurgical engineer reviewmay be revised to meet current compliance requirements. Darell Francisco MD 08/21/2024 3:38:47 PM This report has been signed electronically.Darell Francisco MD Number of Addenda: 0 Note Initiated On: 08/21/2024 3:12 PM Scope In: Scope Out: Endoscopy Department at [facility] - [address] [place] [phone] IMPRESSION: - Normal examined duodenum. - Bilious gastric fluid. - Bile gastritis. Biopsied. - Abnormal esophageal motility. - Benign-appearing esophageal stenosis. Dilated. - Web in the upper third of the esophagus.Dilated. Recommendation: - Discharge patient to home. - Use a proton pump inhibitor PO daily. - Repeat upper endoscopy PRN for retreatment. Darell Francisco MD GI~PROCEDURE ORDERABLES Fin al Result * Tissue exam (08/21/2024 3:16 PM EDT) Final Diagnosis A. Stomach, biopsy: - Gastric antral and oxyntic mucosa with no specific pathologic changes. - No Helicobacter pylori organisms are morphologically identified. 08/26/2024 9:22 AM EDT [facility] Gross Description A. Stomach, biopsy: Labeled stomach biopsy . Received in formalin are three irregular mathews mucosal tissue fragments, ranging from 0.2 cm to 0.5 cm in greatest dimension, which are wrapped in paper and submitted in toto in one cassette, three pieces, multiple levels on one slide. RAMÓN 08/26/2024 9:22 AM EDT [facility] Disclaimer Unless otherwise specified, all tissue is 10% NB formalin fixed and paraffin embedded. 08/26/2024 9:22 AM EDT [facility] Tissue Stomach structure / Unknown 08/21/2024 3:16 PM EDT 08/25/2024 7:30 AM EDT us Darell Francisco MD LAB PATHOLOGY ORDERABLES Fi nal Result Performing Organization Address City/[facility]/ZIP Co de Phone Number [facility] [address] [place] [address], [place] [phone] * (ABNORMAL) Lipid panel with reflex to direct LDL (07/31/2024 8:45 AM EDT) Cholesterol 276(H) 0 - 200 mg/dL LAB CHEMISTRY METHOD 07/31/2024 10:32 AM EDT [facility] Triglycerides 459(H) 0 - 150 mg/dL LAB CHEMISTRY METHOD 07/31/2024 10:32 AM EDT [facility] HDL 38(L) >=40 mg/dL LAB CHEMISTRY METHOD 07/31/2024 10:32 AM EDT [facility] LDL Calculated 146(H) 0 - 100 mg/dL LAB CHEMISTRY METHOD 07/31/2024 10:32 AM EDT [facility] Comment:Unable to calculate when triglycerides >400 mg/dL. VLDL Cholesterol Tom 91.8 mg/dL LAB CHEMISTRY METHOD 07/31/2024 10:32 AM EDT [facility] Comment:Unable to calculate when triglycerides >400 mg/dL. Non HDL Chol. (LDL+VLDL) 238(H) <145 mg/dL LAB CHEMISTRY METHOD 07/31/2024 10:32 AM EDT [facility] Comment:Unable to calculate when triglycerides >400 mg/dL. Chol/HDL Ratio 7.3(H) 0.0 - 4.4 LAB CHEMISTRY METHOD 07/31/2024 10:32 AM EDT [facility] Blood Venous blood specimen / Unknown Venipuncture / Unknown 07/31/2024 8:45 AM EDT 07/31/2024 9:09 AM EDT us Ronnell Daniels MD LAB BLOOD ORDERABLES Final Res ult [facility] [address] [place] [address], * (ABNORMAL) Comprehensive metabolic panel (07/31/2024 8:45 AM EDT) Sodium 140 133 - 145 mmol/L LAB CHEMISTRY METHOD 07/31/2024 10:04 AM [facility] Potassium 4.0 3.5 - 5.5 mmol/L LAB CHEMISTRY METHOD 07/31/2024 10:04 AM [facility] Chloride 106 96 - 110 mmol/L LAB CHEMISTRY METHOD 07/31/2024 10:04 AM [facility] CO2 25 21 - 32 mmol/L LAB CHEMISTRY METHOD 07/31/2024 10:04 AM [facility] Anion Gap 9 3 - 11 LAB CHEMISTRY METHOD 07/31/2024 10:04 AM [facility] Glucose 110(H) 70 - 100 mg/dL LAB CHEMISTRY METHOD 07/31/2024 10:04 AM [facility] BUN 26(H) 5 - 25 mg/dL LAB CHEMISTRY METHOD 07/31/2024 10:04 AM [facility] Creatinine 1.35(H) 0.50 - 1.10 mg/dL LAB CHEMISTRY METHOD 07/31/2024 10:04 AM [facility] eGFR 43(L) >=60 mL/min/1. 73m2 LAB CHEMISTRY METHOD 07/31/2024 10:04 AM [facility] Comment:Calculation based on the Chronic Kidney Disease Epidemiology Collaboration (CKD-EPI) equation refit without adjustment for race. BUN/Creatinine Ratio 19.3 LAB CHEMISTRY METHOD 07/31/2024 10:04 AM [facility] Calcium 9.3 8.5 - 10.5 mg/dL LAB CHEMISTRY METHOD 07/31/2024 10:04 AM [facility] AST (SGOT) 22 10 - 42 unit/L LAB CHEMISTRY METHOD 07/31/2024 10:04 AM EDT [facility] ALT (SGPT) 47 10 - 60 unit/L LAB CHEMISTRY METHOD 07/31/2024 10:04 AM EDT [facility] Alkaline Phosphatase 153(H) 42 - 121 unit/L LAB CHEMISTRY METHOD 07/31/2024 10:04 AM EDT [facility] Total Protein 6.4 6.0 - 8.0 g/dL LAB CHEMISTRY METHOD 07/31/2024 10:04 AM EDT [facility] Albumin 3.9 3.2 - 5.0 g/dL LAB CHEMISTRY METHOD 07/31/2024 10:04 AM T [facility] Total Bilirubin 0.4 0.0 - 1.4 mg/dL LAB CHEMISTRY METHOD 07/31/2024 10:04 AM T [facility] Blood Venous blood specimen / Unknown Venipuncture / Unknown 07/31/2024 8:45 AM EDT 07/31/2024 9:09 AM EDT us Ronnell Daniels MD LAB BLOOD ORDERABLES Final Res ult [facility] [address] [place] [address], [place] [phone] from Last 3 Months or Most Recently Relevant to Health Maintenance Insurance MEDICARE [facility] Care Teams Drug Safety Coordinator Relationship Specialty Start Date End Date Ronnell Daniels MD [address] [id number] PCP - General 04/11/19
--- OUTSIDE RECORDS SUMMARY | 2024-11-04 17:39 | XMS_ITS | Patient Health Record ---
Author Organization Ronnell Daniels III, MD Address [address] [place] [address] Care Team Providers Care Information Security Manager Name Role Phone Ronnell Daniels Primary Care [...] date:01/28/2024 05:37:36 AM Interpretation: Performing Lab: Notes/Report: [address] [place] [address] Mammography Report Signed Patient: MR#: [id number] : 1955 Acct:[id number] Age/Sex: 68 / F ADM Date: 01/09/24 Loc: HO.MAMMO Attending Dr: Ronnell Daniels MD Ordering Physician: Ronnell Daniels MD Results: 1Negativ e Date of Service: 01/09/24 Follow Up: 1 Year From Orig inal Mammogram Procedure(s): MM tomosynthesis screening BI Accession Number(s): [id number] cc: Ronnell Daniels MD EXAMINATION: MM SCREENING [...] 01/21/24 0905 DD/ 1435 TD/TT: 01/09/24 1448 Forming Machine Upkeep Mechanic: [facility] [address] [place] [address] Mammography Report Signed Patient: ChinMay MR#: [id number] : 1955 Acct:[id number] Age/Sex: 68 / F ADM Date: 01/09/24 Loc: HO.MAMMO Attending Dr: Ronnell Daniels MD Ordering Physician: Ronnell Daniels MD Results: 1Negativ e Date of Service: Follow Up: 1 Year From Orig ina Mammogram Procedure(s): MM krzysztof osynthesis screening BI Accession Number(s): [id number] cc: Ronnell Daniels MD EXAMINATION: MM SCREENING [...] DO Signed By: <Electron ically signed by Annetet Banuelos DO in OV> 01/21/24 0905 DD/ 1435 TD/TT: 01/09/24 1448 Forming Machine Upkeep Mechanic: Reason For Referral No Information Medications Medication [...] Problem Status W/U Status Risk Notes Problem 0962672 Former smoker (Z87.891) Active confirmed She seems highl y motivated not to smoke. We formulated a plan to prevent relapse in times of stress and illness. Problem 842153585 Overweight (E66.3) Active confirmed We reviewed her diet and nutrition today. I recommended weight loss at a rate of one half of a pound per week through a diet restricted in fat calories and sodium combined with regular physical activity.A change was made in the dose of the Wegovy. She will now take 2.4 mg weekly. Problem 40843279 Anxiety (F41.9) Active confirmed She has felt a great deal of anxiety lately. She is going to see her therapist. She declined my offer of medication. Problem 356363883 Other obesity due to excess calories (E66.09) Active confirmed Her body mass index is now in the overweight range. The Wegovy was increased to 1.0 mg by subcutaneous injection weekly. Problem Atherosclerosis of coronary artery (867518588) Coronary atherosclerosis due to calcified coronary lesion (I25.84) Active confirmed She has had no angina or chest pain since her last visit. No change in her regimen was made. She has seen a thermoscrew operator who thinks the pain comes from her lungs. Problem 433116002 Atypical squamous cells of undetermined significance on cytologic smear of cervix (ASC-US) (R87.610) Active confirmed Her previous physicians records indicate a history of positivity for HPV and ACUS. She has an upcoming appointment and I will attempt to find old records. 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 Problem Hypertension (52774276) HTN (hypertension) (I10) Active confirmed Her blood pressure is in the normal range today. No change in her regimen was recommended. Problem 553743483 Pulmonary nodule (R91.1) Active confirmed The CT scan of February 18, 2022 shows possible increase in a 3 mm nodule right upper lobe. This will be subject to surveillance. Problem 624612865 Pedal edema (R60.0) Active confirmed She says she wa s bitten by a spider and now has bilateral edema of the feet butt can put her shoes and socks on. I recommended elevating her legs and using a topical hydroccortisone on the left foot to reduce the itching. A rate feet visit was scheduled for Sunday of this week. Problem 158072219 Primary osteoarthritis involving multiple joints (M15.0) Active confirmed She has finishe d with the orthopedic surgeon and will now see the perforator. She will take the meloxicam. Problem 46727035 PTSD (post-traumatic stress disorder) (F43.10) Active confirmed She will continue with therapy. Problem Hyperlipidaemia (80628509) Hyperlipidemia, unspecified hyperlipidemia type (E78.5) Active confirmed No change in he r medications was made today. Comprehensive blood work with fasting lipids has been ordered prior to her next visit. Problem 520682639 History of depression (Z86.59) Active confirmed She says today that she has stopped all of her medications. It was unclear if she was taking the antidepressants. I strongly recommended she take them. I will arrange close follow-up with her. She adamantly denied any suicidal thoughts or desire to hurt himself. Problem 37121422 Sciatica of right side (M54.31) Active confirmed Her back pain i s significantly better than recently. She will continue on current treatment. Problem Asthma without status asthmaticus (93955845) Asthma, unspecified asthma severity, unspecified whether complicated, unspecified whether persistent (J45.909) Active confirmed She was breathing comfortably today and her asthmatic bronchitis has resolved. She was encouraged to call me if it worsens. Problem 650655966 Osteopenia, unspecified location (M85.80) Active confirmed She will have a bone density every 2 years. I recommended 500 mg of calcium per day orally with a multiple vitamin. She says she has been doing this. She denies any new bone pain in her back. Problem 90108106 Closed nondisplaced fracture of patella with routine healing, unspecified fracture morphology, unspecified laterality, subsequent encounter (S82.009D) Active confirmed The pain in her knee is still present but is slowly diminishing as the wound heals. 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 Problem 547069076 Closed fracture of right wrist with routine healing, subsequent encounter (S62.101D) Active confirmed I encouraged he r to continue her visits to the orthopedist and she said she would do so. 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 She will proceed to the CT scan and the pulmonary remediation bioanalytics consultant, Dr. Beltre, and we will reevaluate the status of her infection. I strongly advised her to finish the antibiotics. Problem 841255683 Nonspecific low back pain (M54.50) Active confirmed [...] Encounters Encounter Location Date Provider Diagnosis Ronnell aDniels III, MD [address] [place] [address] [place] [address] 11/20/2023 Ronnell Daniels Hyperlipidemia, unspecified hyperlipidemia type E78.5 ; Coronary atherosclerosis due to calcified coronary lesion I25.84 ; Other obesity due to excess calories E66.09 ; HTN (hypertension) I10 ; Former smoker Z87.891 and History of depression Z86.59 Ronnell Daniels III, MD [address] [place] [address] [place] [address] 12/18/2023 Ronnell Daniels Hyperlipidemia, unspecified hyperlipidemia type E78.5 ; Asthma, unspecified asthma severity, unspecified whether complicated, unspecified whether persistent J45.909 ; History of depression Z86.59 ; Former smoker Z87.891 and Overweight E66.3 Ronnell Daniels III, MD [address] [place] [address] [place] [address] 01/14/2024 Ronnell Daniels Hyperlipidemia, unspecified hyperlipidemia type E78.5 ; Overweight E66.3 ; Asthma, unspecified asthma severity, unspecified whether complicated, unspecified whether persistent J45.909 ; History of depression Z86.59 ; Former smoker Z87.891 ; Primary osteoarthritis involving multiple joints M15.0 ; Coronary atherosclerosis due to calcified coronary lesion I25.84 and HTN (hypertension) I10 Ronnell Daniels III, MD [address] [place] [address] [address] [place] [address] 06/24/2024 Ronnell Daniesl Hyperlipidemia, unspecified hyperlipidemia type E78.5 ; Pedal edema R60.0 ; Overweight E66.3 ; Asthma, unspecified asthma severity, unspecified whether complicated, unspecified whether persistent J45.909 ; History of depression Z86.59 and Former smoker Z87.891 Ronnell Daniels III, MD [address] [place] [address] [address] [place] [address] 06/27/2024 Ronnell Daniels Hyperlipidemia, unspecified hyperlipidemia type E78.5 ; Insect bite without infection W57.XXXA ; Overweight E66.3 ; History of depression Z86.59 ; Osteopenia, unspecified location M85.80 ; Cervical high risk human papillomavirus (HPV) DNA test positive R87.810 ; Sciatica of right side M54.31 ; Coronary atherosclerosis due to calcified coronary lesion I25.84 and Former smoker Z87.891 Ronnell Daniels III, MD [address] [place] [address] [address] [place] [address] 07/02/2024 Ronnell Daniels Hyperlipidemia, unspecified hyperlipidemia type E78.5 ; Mycobacterium avium infection A31.0 ; Overweight E66.3 ; Asthma, unspecified asthma severity, unspecified whether complicated, unspecified whether persistent J45.909 ; History of depression Z86.59 ; PTSD (post-traumatic stress disorder) F43.10 ; Former smoker Z87.891 and Coronary atherosclerosis due to calcified coronary lesion I25.84 Ronnell Daniels III, MD [address] [place] [address] [address] [place] [address] 08/12/2024 Ronnell Daniels Hyperlipidemia, unspecified hyperlipidemia type E78.5 ; Mycobacterium avium infection A31.0 ; Overweight E66.3 ; History of depression Z86.59 ; PTSD (post-traumatic stress disorder) F43.10 ; Primary osteoarthritis involving multiple joints M15.0 ; Osteopenia, unspecified location M85.80 and Nonspecific low back pain M54.50 Ronnell Daniels III, MD [address] [place] [address] [address] [place] [address] 08/15/2024 Ronnell Daniels Hyperlipidemia, unspecified hyperlipidemia type [...] Former smoker Z87.891 Ronnell Daniels III, MD [address] [place] [address] [address] [place] [address] 01/28/2024 Ronnell Daniels Hyperlipidemia, unspecified hyperlipidemia type E78.5 Ronnell Daniels III, MD [address] [place] [address] [address] [place] [address] 04/24/2024 Ronnell Daniels III, MD [address] [place] [address] [address] [place] [address] 07/24/2024 Ronnell Daniels III, MD [address] [place] [address] [address] [place] [address] 08/11/2024 Ronnell Daniels Assessments Encounter Date Diagnosis (ICD Code) Assessment Notes T reatment Notes Treatment Clinical Notes 11/20/2023 Coronary atherosclerosis due to calcified coronary lesion (ICD-10 - I25.84) She has had no angina or chest pain since her last visit. No change in her regimen was made. She has seen a thermoscrew operator who thinks the pain comes from [...] to the CT scan and the pulmonary remediation bioanalytics consultant, Dr. Beltre, and we will reevaluate [...] to the CT scan and the pulmonary remediation bioanalytics consultant, Dr. Beltre, and we will reevaluate [...] ordered prior to her next visit. 11/20/2023 Other obesity due to excess calories [...] She will now take 2.4 mg weekly. 11/20/2023 HTN (hypertension) (ICD-10 - I10) Her [...] to call me if it worsens. 11/20/2023 Former smoker (ICD-1 0 - Z87.891) [...] thoughts or desire to hurt himself. 11/20/2023 History of depressio n (ICD-10 - [...] orthopedic surgeon and will now see the perforator. She will take the meloxicam. 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 07/02/2024 PTSD (post-traumatic stress disorder) (ICD-10 - F43.10) She will continue with therapy. 08/12/2024 Primary osteoarthritis involving multiple joints (ICD-10 - M15.0) She has finished with the orthopedic surgeon and will now see the perforator. She will take the meloxicam. 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 01/14/2024 Coronary atherosclerosis due to calcified coronary lesion (ICD-10 - I25.84) She has had no angina or chest pain since her last visit. No change in her regimen was made. She has seen a thermoscrew operator who thinks the pain comes from [...] regimen was made. She has seen a thermoscrew operator who thinks the pain comes from her lungs. 07/02/2024 Coronary atherosclerosis due to calcified coronary lesion (ICD-10 - I25.84) She has had no angina or chest pain since her last visit. No change in her regimen was made. She has seen a thermoscrew operator who thinks the pain comes from her lungs. 08/12/2024 Nonspecific low back pain (ICD-10 - M54.50) A follow-up visit in short order was arranged. She will use her medication as well as ibuprofen and heat and rest. 08/15/2024 Primary osteoarthritis involving multiple joints (ICD-10 - M15.0) She has finished with the orthopedic surgeon and will now see the perforator. She will take the meloxicam. 06/27/2024 Former [...] regimen was made. She has seen a thermoscrew operator who thinks the pain comes from [...] GGT 04/14/2020 BRAIN NATRIURETIC PEPTIDE (BNP) 07/03/19 CBC w DIFF 07/02/2024 CBC w DIFF [...] End Date MEDICARE NGS [address] [place] [address] [id number] May Self - patient is the insured [facility] [address] [place], [place] [id number] [phone] [id number] 1 May Self - patient is the insured [...] to undergo colonoscopy Bilateral necrotizing cavitary pneumonia [facility] November 2021 Surgical History Surgery Date(Month/Year) No history right wrist colle's fracture, fall right humerus fracture, fall 05/2022 Left lung Bx 2021 Gallbladder right shoulder surgery right knee surgery x3 2018 Hospitalization History Reason Date(Month/Year) No history Hypertension 03/2019
--- OUTSIDE RECORDS SUMMARY | 2024-11-04 17:39 | XMS_ITS | Patient Health Record ---
Author Organization [facility] Address [address] [place] [address] Care Team Providers Care Puzzle Assembler Name Role Phone Asad Tripp Primary Care Provider Ronnell Connor Unavailable [phone] Reason For Referral No Information Medications Medication [...] Status W/U Status Risk Notes Problem Dysphagia (49407763) Dysphagia (787.20) Active confirmed Problem Colon cancer screening (182390942) Colon cancer screening (V76.51) Active confirmed Problem Gastroesophageal reflux disease (081428140) GERD (gastroesopha geal reflux disease) (530.81) Active confirmed Plan Of Treatment Future Test Test Name Order Date UPPER GI ENDOSCOPY BALLOOON DILATION OF ESOPH 03/31/2014 COLONOSCOPY 03/31/2014 Insurance Providers Payer Name Payer Address Payer Phone Subscriber Number Group Number Insured Name Patient Relationship to Insured Coverage Start Date Coverage End Date [facility] [address] [facility] [phone] [id number] May Self - patient is the insured Medical (General) History Medical History History ICD Code Denies [place],DM,CVA,Lung disease,renal dise ase Depression GERD Surgical History Surgery Date(Month/Year) Knee surgeries Shoulder surgery-right--rotator cuff Lumpectomy X2--benign Elbow surgery
== END 2024-11-04 13:48 | disposition home or self-care (01) ==
LOC: HO.HOP 13:47
PROVIDERS: PCP Internal Medicine Medical Oncology; Visit Provider Clinical Nurse Specialist Psychiatric/Mental Health
DX: F43.10 Post-traumatic stress disorder, unspecified (principal); F40.01 Agoraphobia with panic disorder; F33.9 Major depressive disorder, recurrent, unspecified
CPT/HCPCS: 99213

== ENCOUNTER 2024-12-30 15:03 | Outpatient (AMB) | payer MEDICARE, SELFPAY ==
--- OUTSIDE RECORDS SUMMARY | 2024-04-24 06:06 | XMS_ITS ---
Author Organization Ronnell Daniels III, MD Address [address] [place] [place] [address] Care Team Providers Care Herbicide Sprayer Name Role Phone Dr. Ronnell Daniels III Primary Care Provider REASON FOR VISIT Message Social History Sex Assigned At : Social History Observation Description Sex Assigned At Female Encounters Encounter Location Date Provider Diagnosis Ronnell Daniels III, MD [address] [place] [address] [place] [address] 04/24/2024 Ronnell Daniels Plan Of Treatment No Information Progress Notes * May DDOB:1955 (68 yo F)Acc No.[id number]:04/24/2024 Patient: H ILL, May :1955 A ge:68 Y S ex:Female Address:[address] [place], [address] * true * Date: Generated for Thomi eun/Stella/eTransmitting on: 03/01/2024 04:46 PM EST
--- OUTSIDE RECORDS SUMMARY | 2024-06-24 04:30 | XMS_ITS ---
Author Organization Ronnell Daniels III, MD Address [address] [place] [address] [address] [place] [address] Care Team Providers Care Furnace Puncher Name Role Phone Dr. Ronnell Daniels III Primary Care Provider [phone] Allergies Allergen (clinical drug ingredient) Drug/Non Drug Allergy documented on EMR Reaction Allergy Type Onset Date Status raw poultry (uncoded) Unknown Allergy Active Eggs or Egg-derived Products Unknown Drug Allergy Active Coconut Flavor Unknown Drug Allergy Ac tive REASON FOR VISIT Bilateral foot swelling, Spider bite left foot 2 days ago, Asthma, Anxiety, Coronary artery disease, Mycobacterium avium pulmonary infection, Obesity Medications Medication SIG (Take, Route, Frequency, Duration) Notes Start Date End Date Status LORazepam 1 MG 1 tablet at bedtime as needed Orally Twice a day 08/19/2019 Active Albuterol Sulfate HFA 108 (90 Base) MCG/ACT USE 2 INHALATIONS EVERY 4 HOURS NEEDED Active Asmanex HFA Active tiZANidine HCl 4 mg 1 tablet Orally thre e times a day Active Wegovy 1 MG/0.5ML 0.5 mL Subcutaneous weekly 11/19 Active Wellbutrin SR 150 MG 1 tablet Orally Twi ce a day Active Meloxicam 15 mg TAKE 1 TABLET DAILY Active Ibuprofen 800 MG 1 tablet with food o r milk as needed Orally every 8 hrs Active Atorvastatin Calcium 10 mg TAKE 1 TABLET DAILY Active Social History Tobacco Use: Social History Observation Description Date Details (start date - stop date) Former Smoker NA - NA Sex Assigned At : Social History Observation Description Sex Assigned At Female Tobacco Use/Smoking Question Answer Notes Patient is a former smoker How long has it been since you last smoked? > 10 years Additional Findings: Tobacco Non-User Ex-cigaret te smoker Problems Problem Type SNOMED Code ICD Code Onset Dates Problem Status W/U Status Risk Notes Problem [id number] Pedal edema (R60.0) Active confirmed She says she wa s bitten by a spider and now has bilateral edema of the feet butt can put her shoes and socks on. I recommended elevating her legs and using a topical hydroccortisone on the left foot to reduce the itching. A rate feet visit was scheduled for Sunday of this week. Vital Signs Height 61 in 06/24/2024 Weight 143 lbs 06/24/2024 BMI 27.02 kg/m2 06/24/2024 Encounters Encounter Location Date Provider Diagnosis Ronnell Daniels III, MD [address] [place] [address] [address], [place] [address] 06/24/2024 Ronnell Daniesl Hyperlipidemia, unspecified hyperlipidemia type E78.5 ; Pedal edema R60.0 ; Overweight E66.3 ; Asthma, unspecified asthma severity, unspecified whether complicated, unspecified whether persistent J45.909 ; History of depression Z86.59 and Former smoker Z87.891 Assessments Encounter Date Diagnosis (ICD Code) Assessment Notes Treat ment Notes Treatment Clinical Notes 06/24/2024 Hyperlipidemia, unspecified hyperlipidemia type (ICD-10 - E78.5) No change in her medications was made today. Comprehensive blood work with fasting lipids has been ordered prior to her next visit. 06/24/2024 Pedal edema (ICD-10 - R60.0) She says she was bitten by a spider and now has bilateral edema of the feet butt can put her shoes and socks on. I recommended elevating her legs and using a topical hydroccortisone on the left foot to reduce the itching. A rate feet visit was scheduled for Sunday of this week. 06/24/2024 Overweight (ICD-10 - E66.3) We reviewed her diet and nutrition today. I recommended weight loss at a rate of one half of a pound per week through a diet restricted in fat calories and sodium combined with regular physical activity.A change was made in the dose of the Wegovy. She will now take 2.4 mg weekly. 06/24/2024 Asthma, unspecified asthma severity, unspecified whether complicated, unspecified whether persistent (ICD-10 - J45.909) She was breathing comfortably today and her asthmatic bronchitis has resolved. She was encouraged to call me if it worsens. 06/24/2024 History of depression (ICD-10 - Z86.59) She says today that she has stopped all of her medications. It was unclear if she was taking the antidepressants. I strongly recommended she take them. I will arrange close follow-up with her. She adamantly denied any suicidal thoughts or desire to hurt himself. 06/24/2024 Former smoker (ICD-10 - Z87.891) Plan Of Treatment Medication Medication Name Sig Start Date Stop Date Notes LORazepam 1 MG 1 tablet at bedtime as needed Orally Twice a day 08/19/2019 Albuterol Sulfate HFA 108 (9 0 Base) MCG/ACT USE 2 INHALATIONS EVERY 4 HOURS NEEDED Asmanex HFA tiZANidine HCl 4 mg 1 tablet Orally thre e times a day Wegovy 1 MG/0.5ML 0.5 mL Subcutaneous weekly 11/20/2023 Wellbutrin SR 150 MG 1 tablet Orally Twice a day Meloxicam 15 mg TAKE 1 TABLET DAILY Ibuprofen 800 MG 1 tablet with food o r milk as needed Orally every 8 hrs Atorvastatin Calcium 10 mg TAKE 1 TABLET DAILY Next Appt Details Follow Up: 4 days TV, Reason : TV Progress Notes * May DDOB:1955 (68 yo F)Acc No.[id number]:06/24/2024 Patient: Yuli SCHAEFFERMay Provider: Karen Daniels MD :1955 A ge:68 Y S ex:Female Date:06/24/2024 Address:[address] [place] [id number] Subjective: * Chief Complaints: * B ilateral foot swellingSpider bite left foot 2 days agoAsthmaAnxietyCoronary artery diseaseMycobacterium avium pulmonary infectionObesity * HPI: * : T his telehealth visit took place with me in my office on the patient at home. It took place over 15 min. and she gave permission for billing. She says that 2 days ago she had a spider bite on the dorsal surface of her left foot. Both feet and became swollen but not erythematous. The left foot is itchy. She is able to put her shoes and socks on. She has no trouble breathing. Her asthma has been mild, so Bill for, and pollen season. She has been to another infectious disease specialist for her pulmonary mycobacterium infection but she says today that she is not taking any antibiotics and has no intention to do so. Telehealth L ocation of provider rendering services: { ...} [address] [facility] [address] L ocation of patient: bubba vaughan listed in demographics for today's visit P atient identification confirmed using: ADE Tenorio ame elehealth method: T elephone only. Patient not visible to care provider. C onsent: P atient verbally consented to treatment, Patient verbally consented to billing insurance company, Patient informed of any privacy concerns related to method of visit T otal time spent with patient (mins) 1 5 * ROS: G eneral/Constitutional: pain o nly normal aches and pains. C hills d enies.?Fatigue a dmits. F ever d enies. E NT: Decreased hearing m ild. R espiratory: Cough n on-productive. C ardiovascular: Chest pain with exertion d enies. D yspnea on exertion?denies. S hortness of breath t hat is mild. G astrointestinal: Constipation d enies. D ecreased appetite d enies.?Diarrhea d enies. H eartburn d enies. N ausea d enies. R ectal bleeding?denies. V omiting d enies. H ematology: bruising d enies. p etechiae d enies. S wollen glands n one have been noted. G enitourinary: Frequent urination d enies. M usculoskeletal: Muscle aches d enies. P ainful joints d enies. S ciatica d enies. W eakness d enies. S kin: Itching L eft foot. R jan d enies. S kin lesion(s) d enies. N eurologic: Difficulty speaking d enies. D izziness d enies.?Headache d enies. L ow back pain d enies. P sychiatric: Depressed mood w hich is moderate. * Medical History: * Surgical History: r ight knee surgery x3 2017right shoulder surgery Gallbladder Left lung Bx 2right humerus fracture, fall 05/2022right wrist colle's fracture, fall 05/2022No history * Hospitalization/Major Diagno stic Procedure: H ypertension 03/2019No history * Family History: F ather: 70 yrs, Complications of paraplegia from an automobile accident. M other: alive 82 yrs, Coronary artery disease, blood disorder, colon cancer, diagnosed with Cancer, CVD.?3 brother(s) , 1 sister(s) - healthy. . Her 3 brothers and her sister are healthy and well. She is disabled on Social Security. 4. Osteoarthritis.she is not aware of any family history of substance use disorder or mental illness. * Social History: T obacco Use: T obacco Use/Smoking P atient is a f ormer smoker H ow long has it been since you last smoked??> 10 years A dditional Findings: Tobacco Non-User E x-cigarette smoker S he is disabled on Social Security for osteoarthritis. She is a former smoker. She has been to her second , Jerman, for 18 years. She has no children. 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 * Medications: T akingIbuprofen 800 MG Tablet 1 tablet with food or milk as needed Orally every 8 hrs Wellbutrin SR 150 MG Tablet Extended Release 12 Hour 1 tablet Orally Twice a day LORazepam 1 MG Tablet 1 tablet at bedtime as needed Orally Twice a day Asmanex HFA Albuterol Sulfate HFA 108 (90 Base) MCG/ACT Aerosol Solution USE 2 INHALATIONS EVERY 4 HOURS NEEDED tiZANidine HCl 4 mg Tablet 1 tablet Orally three times a day Wegovy 1 MG/0.5ML Solution Auto-injector 0.5 mL Subcutaneous weekly Atorvastatin Calcium 10 mg Tablet TAKE 1 TABLET DAILY Meloxicam 15 mg Tablet TAKE 1 TABLET DAILY Taking Ibuprofen 800 MG Tablet 1 tablet with [...] 2 INHALATIONS EVERY 4 HOURS NEEDED Taking tiZANidine HCl 4 mg Tablet 1 tablet Orally three times a day Taking Wegovy 1 MG/0.5ML Solution Auto- injector 0.5 mL Subcutaneous weekly Taking Atorvastatin Calcium 10 mg Tablet TAKE 1 TABLET DAILY Taking Meloxicam 15 mg Tablet TAKE 1 TABLET DAILY DiscontinuedWegovy 2.4 MG/0.75ML Solution Auto-injector 0.75 mL Subcutaneous once a week Medication List reviewed and reconciled with the patientDiscontinued Wegovy 2.4 MG/0.75ML Solution Auto- injector 0.75 mL Subcutaneous once a week Medication List reviewed and reconciled with the patient * Allergies: C oconut Flavor: AllergyEggs or Egg-derived Products: Allergyraw poultryno[Allergies Verified] Objective: * Vitals: H t: 61, Wt:143, BMI:27.02, Ht-cm: 154.94, Wt-k.86. Assessment: * Assessment: 1. P edal edema - R60.0 (Primary) N otes :She says she was bitten by a spider and now has bilateral edema of the feet butt can put her shoes and socks on. I recommended elevating her legs and using a topical hydroccortisone on the left foot to reduce the itching. A rate feet visit was scheduled for Sunday of this week. 2 . H yperlipidemia, unspecified hyperlipidemia type - E78.5 N otes :No change in her medications was made today. Comprehensive blood work with fasting lipids has been ordered prior to her next visit. 3 . O verweight - E66.3 N otes :We reviewed her diet and nutrition today. I recommended weight loss at a rate of one half of a pound per week through a diet restricted in fat calories and sodium combined with regular physical activity.A change was made in the dose of the Wegovy. She will now take 2.4 mg weekly. 4 . A sthma, unspecified asthma severity, unspecified whether complicated, unspecified whether persistent - J45.909 N otes :She was breathing comfortably today and her asthmatic bronchitis has resolved. She was encouraged to call me if it worsens. 5 . H istory of depression - Z86.59 N otes :She says today that she has stopped all of her medications. It was unclear if she was taking the antidepressants. I strongly recommended she take them. I will arrange close follow-up with her. She adamantly denied any suicidal thoughts or desire to hurt himself. 6 . F ormer smoker - Z87.891 Plan: * Treatment: 2. O verweight Continue Wegovy Solution Auto-injector, 1 MG/0.5ML, 0.5 mL, Subcutaneous, weekly. 3. O thers Continue Meloxicam Tablet, 15 mg, TAKE 1 TABLET DAILY; C ontinue Atorvastatin Calcium Tablet, 10 mg, TAKE 1 TABLET DAILY; C ontinue Ibuprofen Tablet, 800 MG, 1 tablet with food or milk as needed, Orally, every 8 hrs; C ontinue Albuterol Sulfate HFA Aerosol Solution, 108 (90 Base) MCG/ACT, USE 2 INHALATIONS EVERY 4 HOURS NEEDED; C ontinue tiZANidine HCl Tablet, 4 mg, 1 tablet, Orally, three times a day. * Procedure Codes: 9 8012 SYNCH AUDIO-ONLY EST SF 10 * Preventive Medicine: Counseling: C are goal follow-up plan: Counseling for abnormal BMI given Y es Above Normal BMI Follow-up D ietary management education, guidance, and counseling S moking/Tobacco Use Patient counseled on the dangers of tobacco use and urged to quit. 0 06/24/2024 * Follow Up: 4 days TV (Reason: TV) * Images: * Sign off status: Completed true * Provider: Karen Daniels MD Date: 0 06/24/2024 Generated for Heather haq/Stella/Gopal on: 1 03/01/2024 04:45 PM EST History and Physical Notes * HPI (History of Present Illness) Category Sub-Category Detail Notes Telehealth Location of [facility] rendering services:: {...} [address] [place] [address] Location of patient:: address listed in demographics for today's visit Patient identification confirmed using:: Name, Telehealth method:: Telephone only. Brianna ent not visible to care provider. Consent:: Patient verbally c onsented to treatment, Patient verbally consented to billing insurance company, Patient informed of any privacy concerns related to method of visit Total time spent with patient (mins): 15
--- OUTSIDE RECORDS SUMMARY | 2024-06-27 05:45 | XMS_ITS ---
Author Organization Ronnell Daniels III, MD Address [address] [place] [address] [address] [place] [address] Care Team Providers Care Hi Lo Driver Name Role Phone Dr. Ronnell Daniels III Primary Care Provider [phone] Allergies Allergen (clinical drug ingredient) Drug/Non Drug Allergy documented on EMR Reaction Allergy Type Onset Date Status raw poultry (uncoded) Unknown Allergy Active Eggs or Egg-derived Products Unknown Drug Allergy Active Coconut Flavor Unknown Drug Allergy Ac tive REASON FOR VISIT Insect bite, Asthma, Hyperlipidemia, Depression, Mycobacterium avium pulmonary infection Medications Medication SIG (Take, Route, Frequency, Duration) Notes Start Date End Date Status Wegovy 1 MG/0.5ML 0.5 mL Subcutaneous weekly 11/19 Active Albuterol Sulfate HFA 108 (90 Base) MCG/ACT USE 2 INHALATIONS EVERY 4 HOURS NEEDED Active tiZANidine HCl 4 mg 1 tablet Orally thre e times a day Active LORazepam 1 MG 1 tablet at bedtime as needed Orally Twice a day 08/19/2019 Active Asmanex HFA Active Ibuprofen 800 MG 1 tablet with [...] Additional Findings: Tobacco Non-User Ex-cigaret te smoker Encounters Encounter Location Date Provider Diagnosis Ronnell Daniels III, MD [address] [place] [address] [address], [place] [address] 06/27/2024 Ronnell Daniels Hyperlipidemia, unspecified hyperlipidemia type E78.5 ; Insect bite without infection W57.XXXA ; Overweight E66.3 ; History of depression Z86.59 ; Osteopenia, unspecified location M85.80 ; Cervical high risk human papillomavirus (HPV) DNA test positive R87.810 ; Sciatica of right side M54.31 ; Coronary atherosclerosis due to calcified coronary lesion I25.84 and Former smoker Z87.891 Assessments Encounter Date Diagnosis (ICD Code) Assessment Notes Treat ment Notes Treatment Clinical Notes 06/27/2024 Hyperlipidemia, unspecified hyperlipidemia type (ICD-10 - E78.5) No change in her medications was made today. Comprehensive blood work with fasting lipids has been ordered prior to her next visit. 06/27/2024 Insect bite without infection (ICD-10 - W57.XXXA) She is going to use topical hydrocortisone and warm soaks. She will elevate the leg. He will come to the office for inspection. 06/27/2024 Overweight (ICD-10 - E66.3) We reviewed her diet and nutrition today. I recommended weight loss at a rate of one half of a pound per week through a diet restricted in fat calories and sodium combined with regular physical activity.A change was made in the dose of the Wegovy. She will now take 2.4 mg weekly. 06/27/2024 History of depressio n (ICD-10 - Z86.59) She says today that she has stopped all of her medications. It was unclear if she was taking the antidepressants. I strongly recommended she take them. I will arrange close follow-up with her. She adamantly denied any suicidal thoughts or desire to hurt himself. 06/27/2024 Osteopenia, unspecified location (ICD-10 - M85.80) She will have a bone density every 2 years. I recommended 500 mg of calcium per day orally with a multiple vitamin. She says she has been doing this. She denies any new bone pain in her back. 06/27/2024 Cervical high risk human papillomavirus (HPV) DNA test positive (ICD-10 - R87.810) She will remain under the care of her relays draftsperson. 06/27/2024 Sciatica of right side (ICD-10 - M54.31) Her back pain is significantly better than recently. She will continue on current treatment. 06/27/2024 Coronary atherosclerosis due to calcified coronary lesion (ICD-10 - I25.84) She has had no angina or chest pain since her last visit. No change in her regimen was made. She has seen a electric motor repair supervisor who thinks the pain comes from her lungs. 06/27/2024 Former smoker (ICD-1 0 - Z87.891) She seems highly motivated not to smoke. We formulated a plan to prevent relapse in times of stress and illness. Plan Of Treatment Medication Medication Name Sig Start Date Stop Date Notes Wegovy 1 MG/0.5ML 0.5 mL Subcutaneous weekly 11/20/2023 Albuterol Sulfate HFA 108 (9 0 Base) MCG/ACT USE 2 INHALATIONS EVERY 4 HOURS NEEDED tiZANidine HCl 4 mg 1 tablet Orally thre e times a day LORazepam 1 MG 1 tablet at bedtime as needed Orally Twice a day 08/19/2019 Asmanex HFA Ibuprofen 800 MG 1 tablet with food o r milk as needed Orally every 8 hrs Wellbutrin SR 150 MG 1 tablet Orally Twice a day Meloxicam 15 mg TAKE 1 TABLET DAILY Atorvastatin Calcium 10 mg TAKE 1 TABLET DAILY Next Appt Details Follow Up: 1 Week, Reason: o v Progress Notes * May DDOB:1955 (69 yo F)Acc No.[id number]:06/27/2024 Patient: Yuli SCHAEFFERMay Provider: aKren Daniels MD :1955 A ge:69 Y S ex:Female Date:06/27/2024 Address:[address] [place] [id number] Subjective: * Chief Complaints: * I nsect biteAsthmaHyperlipidemiaDepressionMycobacterium avium pulmonary infection * HPI: * : T his telehealth visit took place over 15 minutes with the patient at home and me in my office. She gave consent for billing. She reports that she noticed an insect bite on her left foot. The insect was not seen. Around the bite there was a red resighini about 1-1/2 inches in diameter. The foot was swollen but more so yesterday. The red resighini is itching. The opposite foot is within normal limits. A follow-up visit was arranged to inspect the foot. Telehealth L ocation of provider rendering services: { ...} [address] [place] [address] [address] [facility] [address] L ocation of patient: bubba vaughan listed in demographics for today's visit P atient identification confirmed using: ADE Tenorio ame T elehealth method: T elephone only. Patient not [...] ever d enies. E NT: Decreased hearing d enies. R espiratory: Cough n on-productive. C ardiovascular: Chest pain with exertion d enies. D yspnea on exertion?denies. S hortness of breath d enies. G astrointestinal: Constipation d enies. D ecreased appetite d enies.?Diarrhea d enies. H eartburn c ontrolled with medications. N ausea d enies.?Rectal bleeding d enies. V omiting d enies. H ematology: bruising d enies. p etechiae d enies. S wollen glands n one have been noted. G enitourinary: Frequent urination a t night. M usculoskeletal: Muscle aches d enies. P ainful joints d enies. S ciatica d enies. W eakness d enies. S kin: Itching L eft foot. R jan d enies. S kin lesion(s) d enies. N eurologic: Difficulty speaking d enies. D izziness d enies.?Headache d enies. L ow back pain d enies. P sychiatric: Depressed mood d enies. * Medical History: * Surgical History: r [...] Cancer.?3 brother(s) , 1 sister(s) - healthy. . [...] children. 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 Her relays draftsperson is at [facility]. * Medications: T akingMeloxicam 15 mg Tablet TAKE 1 TABLET DAILY Atorvastatin Calcium 10 mg Tablet TAKE 1 TABLET DAILY Ibuprofen 800 MG Tablet 1 tablet with [...] List reviewed and reconciled with the patientTaking Meloxicam 15 mg Tablet TAKE 1 TABLET DAILY Taking Atorvastatin Calcium 10 mg Tablet TAKE [...] Solution Auto- injector 0.5 mL Subcutaneous weekly Medication List reviewed and reconciled with the patient * Allergies: C oconut Flavor: AllergyEggs or Egg-derived Products: Allergyraw poultryno[Allergies Verified] Objective: * Vitals: Assessment: * Assessment: 1. I nsect bite without infection - W57.XXXA (Primary) N otes :She is going to use topical hydrocortisone and warm soaks. She will elevate the leg. He will come to the office for inspection. 2 . H yperlipidemia, unspecified hyperlipidemia type [...] now take 2.4 mg weekly. 4 . H istory of depression - Z86.59 N otes :She says today that she has stopped all of her medications. It was unclear if she was taking the antidepressants. I strongly recommended she take them. I will arrange close follow-up with her. She adamantly denied any suicidal thoughts or desire to hurt himself. 5 . O steopenia, unspecified location - M85.80 N otes :She will have a bone density every 2 years. I recommended 500 mg of calcium per day orally with a multiple vitamin. She says she has been doing this. She denies any new bone pain in her back. 6 . C ervical high risk human papillomavirus (HPV) DNA test positive - R87.810? Notes :She will remain under the care of her relays draftsperson. 7 . S ciatica of right side - M54.31 N otes :Her back pain is significantly better than recently. She will continue on current treatment. 8 . C oronary atherosclerosis due to calcified coronary lesion - I25.84 ? N otes :She has had no angina or chest pain since her last visit. No change in her regimen was made. She has seen a electric motor repair supervisor who thinks the pain comes from her lungs. 9 . F ormer smoker - Z87.891 N otes :She seems highly motivated not to smoke. We formulated a plan to prevent relapse in times of stress and illness. Plan: * Treatment: 2. O verweight Continue [...] Follow-up D ietary management education, guidance, and counseling, Dietary needs education * Follow Up: 1 Week (Reason: ov) * Images: * Sign off status: Completed true * Provider: Karen Daniels MD Date: 0 06/27/2024 Generated for Heather haq/Stella/Nickitting on: 03/01/2024 04:45 PM EST History and Physical Notes * HPI (History of Present Illness) Category Sub-Category Detail Notes Telehealth Location of [facility] rendering services:: {...} [address] [place] [address] Location of patient:: address listed in demographics [...]
--- OUTSIDE RECORDS SUMMARY | 2024-07-02 08:30 | XMS_ITS ---
Author Organization Ronnell Daniels III, MD Address [address] [place] [address] [address] [place] [address] Care Team Providers Care Social Sciences Lecturer Name Role Phone Dr. Ronnell Daniels III Primary Care Provider Allergies Allergen (clinical drug ingredient) Drug/Non Drug Allergy documented on EMR Reaction Allergy Type Onset Date Status raw poultry (uncoded) Unknown Allergy Active Eggs or Egg-derived Products Unknown Drug Allergy Active Coconut Flavor Unknown Drug Allergy Ac tive REASON FOR VISIT Left foot swollen from insect bite, Asthma, Impression, Coronary artery disease, Mycobacterium avium pulmonary infection Medications Medication SIG [...] MG/0.5ML 0.5 mL Subcutaneous weekly 11/20/2023 Active Albuterol Sulfate (2.5 MG/3ML) 0.083% 3 mL as needed Inhalation twice a day for 90 days As needed J45.909 Asthma 07/02/2024 Active Meloxicam 15 mg TAKE 1 TABLET DAILY Active Atorvastatin Calcium 10 mg TAKE 1 TABLET DAILY Active Ibuprofen 800 MG 1 tablet with food o r milk as needed Orally every 8 hrs Active Wellbutrin SR 150 MG 1 tablet Orally Twi ce a day Active Social History Tobacco Use: [...] Non-User Ex-cigaret te smoker Vital Signs Temperature 97.6 degrees Fahrenheit 07/03/19 25 Blood pressure systolic 139 mm Hg 07/03/19 25 Blood pressure diastolic 85 mm Hg 025 Heart Rate 95 /min 07/02/2024 Height 61 in 07/02/2024 Weight 142 lbs 07/02/2024 BMI 26.83 kg/m2 07/02/2024 Encounters Encounter Location Date Provider Diagnosis Ronnell Daniels III, MD [address] [place] [address] [address], [place] [address] 07/02/2024 Ronnell Daniels Hyperlipidemia, unspecified hyperlipidemia type E78.5 ; Mycobacterium avium infection A31.0 ; Overweight E66.3 ; Asthma, unspecified asthma severity, unspecified whether complicated, unspecified whether persistent J45.909 ; History of depression Z86.59 ; PTSD (post-traumatic stress disorder) F43.10 ; Former smoker Z87.891 and Coronary atherosclerosis due to calcified coronary lesion I25.84 Assessments Encounter Date Diagnosis (ICD Code) Assessment Notes Treat ment Notes Treatment Clinical Notes 07/02/2024 Hyperlipidemia, unspecified hyperlipidemia type (ICD-10 - E78.5) No change in her medications was made today. Comprehensive blood work with fasting lipids has been ordered prior to her next visit. 07/02/2024 Mycobacterium avium infection (ICD-10 - A31.0) She is refusing to take her antibiotics for unclear reasons. She will proceed to the CT scan and the pulmonary business analyst consultant, Dr. Beltre, and we will reevaluate the status of her infection. I strongly advised her to finish the antibiotics. 07/02/2024 Overweight (ICD-10 - E66.3) We reviewed her diet and nutrition today. I recommended weight loss at a rate of one half of a pound per week through a diet restricted in fat calories and sodium combined with regular physical activity.A change was made in the dose of the Wegovy. She will now take 2.4 mg weekly. 07/02/2024 Asthma, unspecified asthma severity, unspecified whether complicated, unspecified whether persistent (ICD-10 - J45.909) She was breathing comfortably today and her asthmatic bronchitis has resolved. She was encouraged to call me if it worsens. 07/02/2024 History of depressio n (ICD-10 - Z86.59) She says today that she has stopped all of her medications. It was unclear if she was taking the antidepressants. I strongly recommended she take them. I will arrange close follow-up with her. She adamantly denied any suicidal thoughts or desire to hurt himself. 07/02/2024 PTSD (post-traumatic stress disorder) (ICD-10 - F43.10) She will continue with therapy. 07/02/2024 Former smoker (ICD-1 0 - Z87.891) She seems highly motivated not to smoke. We formulated a plan to prevent relapse in times of stress and illness. 07/02/2024 Coronary atherosclerosis due to calcified coronary lesion (ICD-10 - I25.84) She has had no angina or chest pain since her last visit. No change in her regimen was made. She has seen a service counselor who thinks the pain comes from her lungs. Plan Of Treatment Medication Medication Name Sig Start Date Stop Date Notes LORazepam 1 MG 1 tablet at bedtime as needed Orally Twice a day 08/19/2019 Asmanex HFA Albuterol Sulfate HFA 108 (90 Base) MCG/ACT USE 2 INHALATIONS EVERY 4 HOURS NEEDED tiZANidine HCl 4 mg 1 tablet Orally thre e times a day Wegovy 1 MG/0.5ML 0.5 mL Subcutaneous weekly 11/20/2023 Albuterol Sulfate (2.5 MG/3ML) 0.083% 3 mL as needed Inhalation twice a day for 90 days 07/02/2024 J45.909 Asthma Meloxicam 15 mg TAKE 1 TABLET DAILY Atorvastatin Calcium 10 mg TAKE 1 TABLET DAILY Ibuprofen 800 MG 1 tablet with food o r milk as needed Orally every 8 hrs Wellbutrin SR 150 MG 1 tablet Orally Twi ce a day Pending Test Test Name Order Date PROFILE, FASTING (COMPREHENSIVE METABOLI C) 07/02/2024 BRAIN NATRIURETIC PEPTIDE (BNP) 05/14/20 25 CBC w DIFF 07/02/2024 Lipid Panel 07/02/2024 Next Appt Details Follow Up: 3 Weeks, Reason: OV Progress Notes * GERMÁNMay DDOB:1955 (69 yo F)Acc No.[id number]:07/02/2024 Progress Notes Patient: Yuli SCHAEFFERMay Provider: Karen Daniels MD :1955 A ge:69 Y S ex:Female Date:07/02/2024 Address:[address] [place] [id number] Subjective: * Chief Complaints: * L eft foot swollen from insect biteAsthmaImpressionCoronary artery diseaseMycobacterium avium pulmonary infection * HPI: C OVID-19 Screening: S he comes to the office today insisting that her left foot is swollen after a spider bite.? She says she saw the spider. She requests a refill of nebulizer inhalation albuterol solution. We could find no pharmaceutical supply to it. She said she got it from [facility] from a prescription from the emergency room. Pharmacy is working on this. The left foot appeared to be normal today. There is no significant edema. She seemed medically stable. She says she is taking her azithromycin for the mycobacterial pneumonia. She remains under the care of pulmonary. Her insurance will not pay for Wegovy. This year she is wearing fit well. An upper endoscopy is pending because she has complained of dysphagia. She has a new beauty artist, Dr. Hansen, at [facility]. Questions H ave you had any new onset fever, chills, cough, congestion, sore throat, shortness of breath, muscle aches? N o * ROS: G eneral/Constitutional: pain o nly normal aches and pains. C hills d enies.?Fatigue a dmits. F ever d enies. E NT: Decreased hearing d enies. R espiratory: Cough n on-productive. C ardiovascular: Chest pain with exertion d enies. D yspnea on exertion?with moderate activity. S hortness of breath w ith exertion. G astrointestinal: Constipation o ccasional. D ecreased appetite d enies. D iarrhea d enies. H eartburn d enies. N ausea d enies. R ectal bleeding d enies. V omiting d enies. [...] P sychiatric: Depressed mood w hich is mild. * Medical History: * Surgical History: r ight knee surgery x3 2017right shoulder surgery Gallbladder Left lung Bx ight humerus fracture, fall 05/2022right wrist colle's fracture, [...] children. 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 * Medications: T akingMeloxicam 15 [...] Verified] Objective: * Vitals: H t: 61, Wt:142, BMI:26.83, BP:139/85, HR:95, Temp:97.6, Ht-cm: 154.94, Wt-k.41. * Examination: G eneral Examination: GENERAL APPEARANCE: p leasant, well nourished, well developed, in no acute distress, calm and relaxed, obese, woman. HEAD: a traumatic, normocephalic. EYES: e wesley, perrla, anicteric, conjugate. EARS: n ormal. NOSE: s eptum intact. ORAL CAVITY: n ormal, unremarkable. NECK/THYROID: n o jugular venous distention, no carotid bruit, thyroid normal. LYMPH NODES: n o enlarged lymph nodes,spleen normal. SKIN: n o suspicious lesions, anicteric. HEART: n o clicks, gallops, murmurs, or rubs, regular rhythm, S1, S2 normal, no s3, or vascular bruits. LUNGS: , diminished breath sounds throughout, rhonchi on the RIGHT, rhonchi on the LEFT, scattered wheezes throughout. BREASTS: N ot examined. ABDOMEN: b owel sounds normal, no ascites, no organomegaly, no mass, overweight. RECTAL EXAM: n ot examined. MUSCULOSKELETAL: e xtremities unremarkable, no clubbing, cyanosis or edema, Both feet appear normal. PERIPHERAL PULSES: n ormal. NEUROLOGIC: a lert and oriented, cranial nerves 2-12 grossly intact, deep tendon reflexes 2+ symmetrical, motor strength normal upper and lower extremities, sensory exam intact. PSYCH: a lert, oriented. Assessment: * Assessment: 1. M ycobacterium avium infection - A31.0 (Primary) N otes :She is refusing to take her antibiotics for unclear reasons. She will proceed to the CT scan and the pulmonary business analyst consultant, Dr. Beltre, and we will reevaluate the status of her infection. I strongly advised her to finish the antibiotics. 2 . H yperlipidemia, unspecified hyperlipidemia type [...] or desire to hurt himself. 6 . P TSD (post-traumatic stress disorder) - F43.10 N otes :She will continue with therapy. 7 . F ormer smoker - Z87.891 N otes :She seems highly motivated not to smoke. We formulated a plan to prevent relapse in times of stress and illness. 8 . C oronary atherosclerosis due to calcified coronary lesion - I25.84 ? N otes :She has had no angina or chest pain since her last visit. No change in her regimen was made. She has seen a service counselor who thinks the pain comes from her lungs. Plan: * Treatment: 2. O verweight Continue Wegovy Solution Auto-injector, 1 MG/0.5ML, 0.5 mL, Subcutaneous, weekly. L AB: PROFILE, FASTING (COMPREHENSIVE METABOLIC) L AB: BRAIN NATRIURETIC PEPTIDE (BNP) L AB: CBC w DIFF L AB: Lipid Panel 3. O thers Continue Meloxicam Tablet, 15 [...] three times a day. * Procedure Codes: * Preventive Medicine: Counseling: C are goal [...] done: Medical or Other reason not done S moking/Tobacco Use Patient counseled on the dangers of tobacco use and urged to quit. 0 07/02/2024 * Follow Up: 3 Weeks (Reason: OV) * Images: * Sign off status: Completed true * Provider: Karen Daniels MD Date: 0 07/02/2024 Generated for Heather haq/Stlela/Annesmitting on: 03/01/2024 04:45 PM EST History and Physical Notes * HPI (History of Present Illness) Category Sub-Category Detail Notes COVID-19 Screening Questions Have you had any new onset fever, chills, cough, congestion, sore throat, shortness of breath, muscle aches?: No Examination Category Sub-Category Detail Notes General Examination GENERAL APPEARANCE: pleasant , well nourished, well developed, in no acute distress, calm and relaxed, obese, woman HEAD: atraumatic, normocep halic EYES: eomi, perrla, anicte amalia, conjugate EARS: normal NOSE: septum intact NECK/THYROID: no jugular venous di stention, no carotid bruit, thyroid normal HEART: no clicks, gallops, murmurs, or rubs, regular rhythm, S1, S2 normal, no s3, or vascular bruits LUNGS: , diminished breath sounds throughout, rhonchi on the RIGHT, rhonchi on the LEFT, scattered wheezes throughout ABDOMEN: bowel sounds normal, no ascites, no organomegaly, no mass, overweight NEUROLOGIC: alert and oriented, cranial nerves 2-12 grossly intact, deep tendon reflexes 2+ symmetrical, motor strength normal upper and lower extremities, sensory exam intact SKIN: no suspicious lesion s, anicteric PERIPHERAL PULSES: normal BREASTS: Not examined MUSCULOSKELETAL: extremities unremark able, no clubbing, cyanosis or edema, Both feet appear normal LYMPH NODES: no enlarged lymph no patricia,spleen normal RECTAL EXAM: not examined PSYCH: alert, oriented ORAL CAVITY: normal, unremarkable
--- OUTSIDE RECORDS SUMMARY | 2024-07-24 05:15 | XMS_ITS ---
Author Organization Ronnell Daniels III, MD Address [address] [place] [place] [address] Care Team Providers Care Sterile Tech Name Role Phone Dr. Ronnell Daniels III Primary Care Provider REASON FOR VISIT cancelled appt for tomorrow Social History Sex Assigned At : Social History Observation Description Sex Assigned At Female Encounters Encounter Location Date Provider Diagnosis Ronnell Daniels III, MD [address] [place] [address] [place] [address] 07/24/2024 Ronnell Daniels Plan Of Treatment No Information Progress Notes * May DDOB:1955 (69 yo F)Acc No.[id number]:07/24/2024 Patient: H ILL, May :1955 A ge:69 Y S ex:Female Address:[address] [place] [address], [phone] * true * Date: Generated for Thomi eun/Stella/eTransmitting on: 03/01/2024 04:45 PM EST
--- OUTSIDE RECORDS SUMMARY | 2024-07-25 12:15 | XMS_ITS ---
Author Organization Ronnell Daniels III, MD Address [address] [place] [address] [address] [place] [address] Care Team Providers Care Ham Sawyer Name Role Phone Dr. Ronnell Daniels III Primary Care Provider [phone] Allergies Allergen (clinical drug ingredient) Drug/Non Drug Allergy documented on EMR Reaction Allergy Type Onset Date Status raw poultry (uncoded) Unknown Allergy Active Eggs or Egg-derived Products Unknown Drug Allergy Active Coconut Flavor Unknown Drug Allergy Ac tive REASON FOR VISIT Follow up Medications Medication SIG (Take, Route, Frequency, Duration) Notes Start Date End Date Status tiZANidine HCl 4 mg 1 tablet Orally thre e times a day Active Albuterol Sulfate HFA 108 (90 Base) MCG/ACT USE 2 INHALATIONS EVERY 4 HOURS NEEDED Active Wegovy 1 MG/0.5ML 0.5 mL Subcutaneous weekly 11/20/2023 Active Albuterol Sulfate (2.5 MG/3ML) 0.083% 3 mL as needed Inhalation twice a day As needed J45.909 Asthma 07/02/2024 Active Asmanex HFA Active Atorvastatin Calcium 10 mg TAKE 1 TABLET DAILY Active Meloxicam 15 mg TAKE 1 TABLET DAILY Active LORazepam 1 MG 1 tablet at bedtime as needed Orally Twice a day 08/19/2019 Active Wellbutrin SR 150 MG 1 tablet Orally Twi ce a day Active Ibuprofen 800 MG 1 tablet with food o r milk as needed Orally every 8 hrs Active Social History Tobacco Use: Social History [...] Provider Diagnosis Ronnell Daniels III, MD [address] [place] [address] [place] [address] 07/25/2024 Ronnell Daniels Hyperlipidemia, unspecified hyperlipidemia type E78.5 and Overweight E66.3 Assessments Encounter Date Diagnosis (ICD Code) Assessment Notes Treat ment Notes Treatment Clinical Notes 07/25/2024 Hyperlipidemia, unspecified hyperlipidemia type (ICD-10 - E78.5) No change in her medications was made today. Comprehensive blood work with fasting lipids has been ordered prior to her next visit. 07/25/2024 Overweight (ICD-10 - E66.3) We reviewed her diet and nutrition today. I recommended weight loss at a rate of one half of a pound per week through a diet restricted in fat calories and sodium combined with regular physical activity.A change was made in the dose of the Wegovy. She will now take 2.4 mg weekly. Plan Of Treatment Medication Medication Name Sig Start Date Stop Date Notes tiZANidine HCl 4 mg 1 tablet Orally thre e times a day Albuterol Sulfate HFA 108 (90 Base) MCG/ACT USE 2 INHALATIONS EVERY 4 HOURS NEEDED Wegovy 1 MG/0.5ML 0.5 mL Subcutaneous weekly 11/20/2023 Albuterol Sulfate (2.5 MG/3ML) 0.083% 3 mL as needed Inhalation twice a day 07/02/2024 J45.909 Asthma Asmanex HFA Atorvastatin Calcium 10 mg TAKE 1 TABLET DAILY Meloxicam 15 mg TAKE 1 TABLET DAILY LORazepam 1 MG 1 tablet at bedtime as needed Orally Twice a day 08/19/2019 Wellbutrin SR 150 MG 1 tablet Orally Twi ce a day Ibuprofen 800 MG 1 tablet with food o r milk as needed Orally every 8 hrs Progress Notes * GERMÁNMay DDOB:1955 (69 yo F)Acc No.[id number]:07/25/2024 Progress Notes Patient: Yuli [place] Provider: Karen Daniels MD :1955 A ge:69 Y S ex:Female Date:07/25/2024 Address:[address] [place] [address] [address] [place] [id number] Subjective: * Chief Complaints: * 1 . Follow up. * HPI: C OVID-19 Screening: Questions H ave you had any new onset fever, chills, cough, congestion, sore throat, shortness of breath, muscle aches? N o * ROS: G eneral/Constitutional: pain o nly normal aches and pains. C hills d enies.?Fatigue a dmits. F ever d enies. E NT: Decreased hearing d enies. R espiratory: Cough d enies. C ardiovascular: Chest pain with exertion d [...] W eakness d enies. S kin: Itching d enies. R jan d enies. S kin lesion(s)?denies. N eurologic: Difficulty speaking d enies. D izziness d enies.?Headache d enies. L ow back pain d enies. P sychiatric: Depressed mood d enies. * Medical History: A nxiety, PTSD (post-traumatic stress disorder), Asthma, Osteoarthritis, 2018, right hip and right knee, after surgery, Mixed hyperlipidemia, Osteopenia, Depression, History of trochanteric bursitis, History of injections in the spine for pain, Former smoker, 2017 ASCUS, HPV +, abnormal Pap smear, Declines to undergo colonoscopy, Bilateral necrotizing cavitary pneumonia [facility] November 2021. * Surgical History: r ight knee surgery x3 2017, right shoulder surgery , Gallbladder , Left lung Bx 2021, right humerus fracture, fall 05/2022, right wrist colle's fracture, fall 05/2022, No history . * Hospitalization/Major Diagno stic Procedure: H ypertension 03/2019, No history . * Family History: F ather: 70 yrs, [...] children. 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 * Medications: T aking Meloxicam 15 mg Tablet TAKE 1 TABLET DAILY , Taking Atorvastatin Calcium 10 mg Tablet TAKE 1 TABLET DAILY , Taking Ibuprofen 800 MG Tablet 1 tablet with food or milk as needed Orally every 8 hrs , Taking Wellbutrin SR 150 MG Tablet Extended Release 12 Hour 1 tablet Orally Twice a day , Taking LORazepam 1 MG Tablet 1 tablet at bedtime as needed Orally Twice a day , Taking Asmanex HFA , Taking Albuterol Sulfate HFA 108 (90 Base) MCG/ACT Aerosol Solution USE 2 INHALATIONS EVERY 4 HOURS NEEDED , Taking tiZANidine HCl 4 mg Tablet 1 tablet Orally three times a day , Taking Wegovy 1 MG/0.5ML Solution Auto-injector 0.5 mL Subcutaneous weekly , Taking Albuterol Sulfate (2.5 MG/3ML) 0.083% Nebulization Solution 3 mL as needed Inhalation twice a day As needed, Notes to Pharmacist: J45.909 Asthma, Medication List reviewed and reconciled with the patient * Allergies: C oconut Flavor: Allergy, Eggs or Egg-derived Products: Allergy, raw poultry. Objective: * Vitals: * Examination: G eneral Examination: GENERAL APPEARANCE: p leasant, well nourished, well developed, in no acute distress, calm and relaxed. HEAD: a traumatic, normocephalic. EYES: e wesley, [...] normal, no s3, or vascular bruits. LUNGS: c lear to auscultation . BREASTS: no masses palpable bilaterally. ABDOMEN: b owel sounds normal, no ascites, no organomegaly, no mass. RECTAL EXAM: n ot examined. MUSCULOSKELETAL: e xtremities unremarkable, no clubbing, cyanosis or edema. PERIPHERAL PULSES: n ormal. NEUROLOGIC: a lert and oriented, cranial nerves 2-12 grossly intact, deep tendon reflexes 2+ symmetrical, motor strength normal upper and lower extremities, sensory exam intact. PSYCH: a lert, oriented. Assessment: * Assessment: 1. H yperlipidemia, unspecified hyperlipidemia type - E78.5 N otes :No change in her medications was made today. Comprehensive blood work with fasting lipids has been ordered prior to her next visit. 2 . O verweight - E66.3 N otes :We reviewed her diet and nutrition today. I recommended weight loss at a rate of one half of a pound per week through a diet restricted in fat calories and sodium combined with regular physical activity.A change was made in the dose of the Wegovy. She will now take 2.4 mg weekly. Plan: * Treatment: 2. O verweight Continue [...] tablet, Orally, three times a day. * Images: * The named appointment provid er may or may not be the originator of this progress note, and it is not deemed complete until electronically signed by the appointment provider. Sign off status: Pending * Provider: Karen Daniels MD Date: 0 07/25/2024 Generated for Heather haq/Stella/eTsumansmitting on: 1 03/01/2024 04:46 PM EST History and Physical Notes * HPI (History of Present Illness) Category Sub-Category Detail Notes COVID-19 Screening Questions Have you had any new onset fever, chills, cough, congestion, sore throat, shortness of breath, muscle aches?: No Examination Category Sub-Category Detail Notes General Examination GENERAL APPEARANCE: pleasant , well nourished, well developed, in no acute distress, calm and relaxed HEAD: atraumatic, normocep halic EYES: eomi, perrla, anicte amalia, conjugate EARS: normal NOSE: septum intact NECK/THYROID: no jugular venous di stention, no carotid bruit, thyroid normal HEART: no clicks, gallops, murmurs, or rubs, regular rhythm, S1, S2 normal, no s3, or vascular bruits LUNGS: clear to auscultatio n ABDOMEN: bowel sounds normal, no ascites, no organomegaly, no mass NEUROLOGIC: alert and oriented, cranial nerves 2-12 grossly intact, deep tendon reflexes 2+ symmetrical, motor strength normal upper and lower extremities, sensory exam intact SKIN: no suspicious lesion s, anicteric PERIPHERAL PULSES: normal BREASTS: no masses palpable b ilaterally MUSCULOSKELETAL: extremities unremark able, no clubbing, cyanosis or edema LYMPH NODES: no enlarged lymph no patricia,spleen normal RECTAL EXAM: not examined PSYCH: alert, oriented ORAL CAVITY: normal, unremarkable
--- OUTSIDE RECORDS SUMMARY | 2024-08-11 06:27 | XMS_ITS ---
Author Organization Ronnell Daniels III, MD Address [address] [place] [address] [address] [place] [address] Care Team Providers Care Dock Operations Supervisor Name Role Phone Dr. Ronnell Daniels III Primary Care Provider REASON FOR VISIT Rx Request Medications Medication SIG (Take, Route, Fr equency, Duration) Notes Start Date End Date Status tiZANidine HCl 4 mg 1 tablet Orally thre e times a day for 90 days Active Social History Sex Assigned At : Social History Observation Description Sex Assigned At Female Encounters Encounter Location Date Provider Diagnosis Ronnell Daniels III, MD [address] [place] [address] [place] [address] 08/11/2024 Ronnell Daniels Plan Of Treatment Medication Medication Name Sig Start Date Stop Date Notes tiZANidine HCl 4 mg 1 tablet Orally thre e times a day for 90 days Progress Notes * May DDOB:1955 (69 yo F)Acc No.[id number]:08/11/2024 Patient: Yuli SCHAEFFERMay :1955 A ge:69 Y S ex:Female Address:[address] [place] [address], [phone] * Refills Refill tiZANidine HCl Tablet, 4 mg, Orally, 270 Tablet, 1 tablet, three times a day, 90 days, Refills=3 * true * Date: Generated for Heather haq/Stella/Nickitting on: 03/01/2024 04:46 PM EST
--- OUTSIDE RECORDS SUMMARY | 2024-08-12 06:00 | XMS_ITS ---
Author Organization Ronnell Daniels III, MD Address [address] [place] [address] [address] [place] [address] Care Team Providers Care Hand Baseball Sewer Name Role Phone Dr. Ronnell Daniels III Primary Care Provider Allergies Allergen (clinical drug ingredient) Drug/Non Drug Allergy documented on EMR Reaction Allergy Type Onset Date Status raw poultry (uncoded) Unknown Allergy Active Eggs or Egg-derived Products Unknown Drug Allergy Active Coconut Flavor Unknown Drug Allergy Ac tive REASON FOR VISIT Acute low back pain, Mycobacterium pulmonary infection, Asthma, Depression, Hyperlipidemia Medications Medication SIG (Take, Route, Frequency, Duration) Notes Start Date End Date Status Wegovy 1 MG/0.5ML 0.5 mL Subcutaneous weekly 11/20/2023 Active Asmanex HFA Active Albuterol Sulfate HFA 108 (90 Base) MCG/ACT USE 2 INHALATIONS EVERY 4 HOURS NEEDED Active LORazepam 1 MG 1 tablet at bedtime as needed Orally Twice a day 08/19/2019 Active Albuterol Sulfate (2.5 MG/3ML) 0.083% 3 mL as needed Inhalation twice a day As needed J45.909 Asthma 07/02/2024 Active Wellbutrin SR 150 MG 1 tablet Orally Twi ce a day Active Atorvastatin Calcium 10 mg TAKE 1 TABLET DAILY Active Ibuprofen 800 MG 1 tablet with food o r milk as needed Orally every 8 hrs Active tiZANidine HCl 4 mg 1 tablet Orally thre e times a day Active Meloxicam 15 mg TAKE 1 TABLET DAILY Active Social [...] Problem Status W/U Status Risk Notes Problem [id number] Nonspecific low back pain (M54.50) Active confirmed She is beginning to improve. She will continue to avoid exertion and rest as much as possible, use a heating pad, and use a combination of ibuprofen and acetaminophen. 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 Comprehensive blood work with fasting lipids has been ordered prior to her next visit. 08/12/2024 Mycobacterium avium infection (ICD-10 - A31.0) She is refusing to take her antibiotics for unclear reasons. She will proceed to the CT scan and the pulmonary cost consultant, Dr. Beltre, and we will reevaluate the status of her infection. I strongly advised her to finish the antibiotics. 08/12/2024 Overweight (ICD-10 - E66.3) We reviewed her diet and nutrition today. I recommended weight loss at a rate of one half of a pound per week through a diet restricted in fat calories and sodium combined with regular physical activity.A change was made in the dose of the Wegovy. She will now take 2.4 mg weekly. 08/12/2024 History of depressio n (ICD-10 - Z86.59) She says today that she has stopped all of her medications. It was unclear if she was taking the antidepressants. I strongly recommended she take them. I will arrange close follow-up with her. She adamantly denied any suicidal thoughts or desire to hurt himself. 08/12/2024 PTSD (post-traumatic stress disorder) (ICD-10 - F43.10) She will continue with therapy. 08/12/2024 Primary osteoarthritis involving multiple joints (ICD-10 - M15.0) She has finished with the orthopedic surgeon and will now see the slot operations director. She will take the meloxicam. 08/12/2024 Osteopenia, unspecified location (ICD-10 - M85.80) She will have a bone density every 2 years. I recommended 500 mg of calcium per day orally with a multiple vitamin. She says she has been doing this. She denies any new bone pain in her back. 08/12/2024 Nonspecific low back pain (ICD-10 - M54.50) A follow-up visit in short order was arranged. She will use her medication as well as ibuprofen and heat and rest. Plan Of Treatment Medication Medication Name Sig Start Date Stop Date Notes Wegovy 1 MG/0.5ML 0.5 mL Subcutaneous weekly 11/20/2023 Asmanex HFA Albuterol Sulfate HFA 108 (90 Base) MCG/ACT USE 2 INHALATIONS EVERY 4 HOURS NEEDED LORazepam 1 MG 1 tablet at bedtime as needed Orally Twice a day 08/19/2019 Albuterol Sulfate (2.5 MG/3ML) 0.083% 3 mL as needed Inhalation twice a day 07/02/2024 J45.909 Asthma Wellbutrin SR 150 MG 1 tablet Orally Twi ce a day Atorvastatin Calcium 10 mg TAKE 1 TABLET DAILY Ibuprofen 800 MG 1 tablet with food o r milk as needed Orally every 8 hrs tiZANidine HCl 4 mg 1 tablet Orally thre e times a day Meloxicam 15 mg TAKE 1 TABLET DAILY Next Appt Details Follow Up: 2 - 3 Days, Reaso n: Telehealth Progress Notes * GERMÁNMay DDOB:1955 (69 yo F)Acc No.[id number]:08/12/2024 Patient: Yuli SCHAEFFERMay Provider: Karen Daniels MD :1955 A ge:69 Y S ex:Female Date:08/12/2024 Address:[address] [place] [address] MADI FAUSTIN [id number] Subjective: * Chief Complaints: * A cute low back painMycobacterium pulmonary infectionAsthmaDepressionHyperlipidemia * HPI: * : T his telehealth visit took place over 22 minutes with the patient at home and me in my office. She gave consent for billing. She has a new complaint of severe back pain. She has had chronic low back pain but this was exacerbated yesterday when she picked up a watermelon and since then has had spasms in her lumbar spine. I have refilled her tizanidine. She is going to use heat and rest and ibuprofen.Her fasting lipid profile from August 03, 2024 showed a total cholesterol of 276. We discussed this at length. She declines and refuses a prescription for a statin drug fearing side effects. We decided to repeat it after pursuing a low animal fat diet.The esophagram done July 31, 2024 showed mild dysmotility likely age-appropriate.She continues to cough. She has been to pulmonary for her mycobacterial lung infection. She continues to decline to take antibiotics. Telehealth L ocation of provider rendering services: { ...} [address] [place] [address] [place] [address] L ocation of patient: a ddress listed in demographics for today's visit P [...] of breath d enies. G astrointestinal: Constipation o ccasional. D ecreased [...] Surgical History: r ight knee surgery x3 2018right shoulder surgery Gallbladder [...] children. 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 * Medications: T akingMeloxicam 15 mg Tablet [...] EVERY 4 HOURS NEEDED Wegovy 1 MG/0.5ML Solution Auto-injector 0.5 mL Subcutaneous weekly Albuterol Sulfate (2.5 MG/3ML) 0.083% Nebulization Solution 3 mL as needed Inhalation twice a day As needed, Notes to Pharmacist: J45.909 AsthmatiZANidine HCl 4 mg Tablet 1 tablet Orally three times a day Medication List reviewed and reconciled with the [...] 2 INHALATIONS EVERY 4 HOURS NEEDED Taking Wegovy 1 MG/0.5ML Solution Auto- injector 0.5 mL Subcutaneous weekly Taking Albuterol Sulfate (2.5 MG/3ML) 0.083% Nebulization Solution 3 mL as needed Inhalation twice a day As needed, Notes to Pharmacist: J45.909 AsthmaTaking tiZANidine HCl 4 mg Tablet 1 tablet Orally three times a day Medication List reviewed and reconciled with the patient * Allergies: C oconut Flavor: AllergyEggs or Egg-derived Products: Allergyraw poultryno[Allergies Verified] Objective: * Vitals: H t: 61, Wt:142, BMI:26.83, Ht-cm: 154.94, Wt-k.41. Assessment: * Assessment: 1. M ycobacterium avium infection - A31.0 (Primary) N otes :She is refusing to take her antibiotics for unclear reasons. She will proceed to the CT scan and the pulmonary cost consultant, Dr. Beltre, and we will reevaluate [...] or desire to hurt himself. 5 . P TSD (post-traumatic stress disorder) - F43.10 N otes :She will continue with therapy. 6 . P rimary osteoarthritis involving multiple joints - M15.0 N otes :She has finished with the orthopedic surgeon and will now see the slot operations director. She will take the meloxicam. 7 . O steopenia, unspecified location - M85.80 N otes :She will have a bone density every 2 years. I recommended 500 mg of calcium per day orally with a multiple vitamin. She says she has been doing this. She denies any new bone pain in her back. 8 . N onspecific low back pain - M54.50 N otes :A follow-up visit in short order was arranged. She will use her medication as well as ibuprofen and heat and rest. Plan: * Treatment: 2. O verweight Continue Wegovy Solution Auto-injector, 1 MG/0.5ML, 0.5 mL, Subcutaneous, weekly. 3. O thers Continue tiZANidine HCl Tablet, 4 mg, 1 tablet, Orally, three times a day; C ontinue Meloxicam Tablet, 15 mg, TAKE 1 TABLET DAILY; C ontinue Atorvastatin Calcium Tablet, 10 mg, TAKE 1 TABLET DAILY; C ontinue Ibuprofen Tablet, 800 MG, 1 tablet with food or milk as needed, Orally, every 8 hrs; C ontinue Albuterol Sulfate HFA Aerosol Solution, 108 (90 Base) MCG/ACT, USE 2 INHALATIONS EVERY 4 HOURS NEEDED. * Procedure Codes: 9 8012 SYNCH AUDIO-ONLY EST SF 10 * Preventive Medicine: Counseling: C are goal follow-up plan: Counseling for abnormal BMI given Y es Above Normal BMI Follow-up D ietary management education, guidance, and counseling S moking/Tobacco Use Patient counseled on the dangers of tobacco use and urged to quit. 0 08/12/2024 * Follow Up: 2 - 3 Days (Reason: Telehealth) * Images: * Sign off status: Completed true * Provider: Karen Daniels MD Date: 0 08/12/2024 Generated for Heather haq/Stella/Annesmitting on: 1 03/01/2024 04:45 PM EST History and Physical Notes * HPI (History of Present Illness) Category Sub-Category Detail Notes Telehealth Location of [facility] rendering services:: {...} [address] [place] [address] Location of patient:: address listed in demographics [...]
--- OUTSIDE RECORDS SUMMARY | 2024-08-15 08:45 | XMS_ITS ---
Author Organization Ronnell Daniels III, MD Address [address] [place] [address] [address] [address] Care Team Providers Care Package Checker Name Role Phone Dr. Ronnell Daniels III Primary Care Provider Allergies Allergen (clinical drug ingredient) Drug/Non Drug Allergy documented on EMR Reaction Allergy Type Onset Date Status raw poultry (uncoded) Unknown Allergy Active Eggs or Egg-derived Products Unknown Drug Allergy Active Coconut Flavor Unknown Drug Allergy Ac tive REASON FOR VISIT acute low back pain, Mycobacterial lung infection, Coronary artery disease, Obesity Medications Medication SIG (Take, Route, Frequency, [...] te smoker Vital Signs Height 61 in 08/15/2024 Weight 142 lbs 08/15/2024 BMI 26.83 kg/m2 08/15/2024 Encounters Encounter Location Date Provider Diagnosis Ronnell Daniels III, MD [address] [place] [address] [address], [place] [address] 08/15/2024 Ronnell Daniels Hyperlipidemia, unspecified hyperlipidemia type E78.5 ; Nonspecific low back pain M54.50 ; Overweight E66.3 ; Asthma, unspecified asthma severity, unspecified whether complicated, unspecified whether persistent J45.909 ; History of depression Z86.59 ; Cervical high risk human papillomavirus (HPV) DNA test positive R87.810 ; Atypical squamous cells of undetermined significance on cytologic smear of cervix (ASC-US) R87.610 ; Primary osteoarthritis involving multiple joints M15.0 ; Coronary atherosclerosis due to calcified coronary lesion I25.84 ; HTN (hypertension) I10 and Former smoker Z87.891 Assessments Encounter Date Diagnosis (ICD Code) Assessment Notes Treat ment Notes Treatment Clinical Notes 08/15/2024 Hyperlipidemia, unspecified hyperlipidemia type (ICD-10 - E78.5) No change in her medications was made today. Comprehensive blood work with fasting lipids has been ordered prior to her next visit. 08/15/2024 Nonspecific low back pain (ICD-10 - M54.50) She is beginning to improve. She will continue to avoid exertion and rest as much as possible, use a heating pad, and use a combination of ibuprofen and acetaminophen. 08/15/2024 Overweight (ICD-10 - E66.3) We reviewed her diet and nutrition today. I recommended weight loss at a rate of one half of a pound per week through a diet restricted in fat calories and sodium combined with regular physical activity.A change was made in the dose of the Wegovy. She will now take 2.4 mg weekly. 08/15/2024 Asthma, unspecified asthma severity, unspecified whether complicated, unspecified whether persistent (ICD-10 - J45.909) She was breathing comfortably today and her asthmatic bronchitis has resolved. She was encouraged to call me if it worsens. 08/15/2024 History of depressio n (ICD-10 - Z86.59) She says today that she has stopped all of her medications. It was unclear if she was taking the antidepressants. I strongly recommended she take them. I will arrange close follow-up with her. She adamantly denied any suicidal thoughts or desire to hurt himself. 08/15/2024 Cervical high risk human papillomavirus (HPV) DNA test positive (ICD-10 - R87.810) She will remain under the care of her airset caster. 08/15/2024 Atypical squamous cells of undetermined significance on cytologic smear of cervix (ASC-US) (ICD-10 - R87.610) Her previous physicians records indicate a history of positivity for HPV and ACUS. She has an upcoming appointment and I will attempt to find old records. 08/15/2024 Primary osteoarthritis involving multiple joints (ICD-10 - M15.0) She has finished with the orthopedic surgeon and will now see the member of technical staff. She will take the meloxicam. 08/15/2024 Coronary atherosclerosis due to calcified coronary lesion (ICD-10 - I25.84) She has had no angina or chest pain since her last visit. No change in her regimen was made. She has seen a reception centre manager who thinks the pain comes from her lungs. 08/15/2024 HTN (hypertension) (ICD-10 - I10) Her blood pressure is in the normal range today. No change in her regimen was recommended. 08/15/2024 Former smoker (ICD-1 0 - Z87.891) She [...] TABLET DAILY Next Appt Details Follow Up: As Scheduled, [place] son: OV Progress Notes * May DDOB:1955 (69 yo F)Acc No.[id number]:08/15/2024 Patient: Yuli SCHAEFFERMay Provider: Karen Daniels MD :1955 A ge:69 Y S ex:Female Date:08/15/2024 Address:[address] [place], [place] [id number] Subjective: * Chief Complaints: * A cute low back painMycobacterial lung infectionCoronary artery diseaseObesity * HPI: * : T his telehealth visit annita over 15 minutes with the patient at home and me in my office. She gave consent for billing. The low back pain has begun to improve and she is capable of more mobility. She is taking Tylenol and ibuprofen. She has had no fever but continues to have a cough productive of thick white phlegm. He has no difficulty with urinating. Her treatment was continued without change in she was given an appointment to come to the office. Telehealth L ocation of provider rendering services: { ...} [address] [facility] [address] [place] [address] L ocation of patient: bubba ddress listed in demographics for today's visit [...] 1 5 * ROS: G eneral/Constitutional: pain L ow back pain, otherwise only normal aches and pains.?Chills d enies. F atigue a dmits. F ever d enies. E NT: Decreased hearing d enies. R espiratory: Cough d enies. C ardiovascular: Chest pain with exertion d enies. D yspnea on exertion?with moderate activity. S hortness of breath w ith exertion. G astrointestinal: Constipation d enies. D ecreased [...] enies.?Headache d enies. L ow back pain t hat is new. P sychiatric: Depressed mood d enies. * [...] children. 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 Her airset caster is at [facility]. * Medications: T akingtiZANidine HCl 4 mg Tablet 1 tablet Orally three times a day Meloxicam 15 mg Tablet TAKE 1 TABLET [...] day As needed, Notes to Pharmacist: J45.909 AsthmaMedication List reviewed and reconciled with the patientTaking tiZANidine HCl 4 mg Tablet 1 tablet Orally three times a day Taking Meloxicam 15 mg Tablet TAKE 1 [...] HOURS NEEDED Taking Wegovy 1 MG/0.5ML Solution Auto-injector 0.5 mL Subcutaneous weekly Taking Albuterol Sulfate (2.5 MG/3ML) 0.083% Nebulization Solution 3 mL as needed Inhalation twice a day As needed, Notes to Pharmacist: J45.909 AsthmaMedication List reviewed and reconciled with the patient * Allergies: C oconut Flavor: AllergyEggs or Egg-derived Products: Allergyraw poultryno[Allergies Verified] Objective: * Vitals: H t: 61, Wt:142, BMI:26.83, Ht-cm: 154.94, Wt-k.41. Assessment: * Assessment: 1. N onspecific low back pain - M54.50 (Primary) N otes :She is beginning to improve. She will continue to avoid exertion and rest as much as possible, use a heating pad, and use a combination of ibuprofen and acetaminophen. 2 . H yperlipidemia, unspecified hyperlipidemia type [...] or desire to hurt himself. 6 . C ervical high risk human papillomavirus (HPV) DNA test positive - R87.810? Notes :She will remain under the care of her airset caster. 7 . A typical squamous cells of undetermined significance on cytologic smear of cervix (ASC-US) - R87.610 N otes :Her previous physicians records indicate a history of positivity for HPV and ACUS. She has an upcoming appointment and I will attempt to find old records. 8 . P rimary osteoarthritis involving multiple joints - M15.0 N otes :She has finished with the orthopedic surgeon and will now see the member of technical staff. She will take the meloxicam. 9 . C oronary atherosclerosis due to calcified coronary lesion - I25.84 ? N otes :She has had no angina or chest pain since her last visit. No change in her regimen was made. She has seen a reception centre manager who thinks the pain comes from her lungs. 1 0. H TN (hypertension) - I10 N otes :Her blood pressure is in the normal range today. No change in her regimen was recommended. 1 1. F ormer smoker - Z87.891 N otes [...] tobacco use and urged to quit. 0 08/15/2024 * Follow Up: A s Scheduled (Reason: OV) * Images: * Sign off status: Completed true * Provider: Karen Daniels MD Date: 0 08/15/2024 Generated for Heather haq/Stella/Annesmitting on: 1 03/01/2024 04:46 PM EST History and Physical Notes * HPI (History of Present Illness) Category Sub-Category Detail Notes Telehealth Location of [facility] rendering services:: {...} [address] [place] [address] Location of patient:: address listed in demographics [...]
--- OUTSIDE RECORDS SUMMARY | 2024-12-09 08:12 | XMS_ITS ---
Author Organization Ronnell Daniels III, MD Address [address] [place] [address] [address] [place] [address] Care Team Providers Care Accounting Analyst Name Role Phone Dr. Ronnell Daniels III Primary Care Provider [phone] REASON FOR VISIT Rx Request Medications Medication SIG (Take, Route, Frequency, Duration) Notes Start Date End Date Status Albuterol Sulfate (2.5 MG/3ML) 0.083% 3 mL as needed for wheezing Inhalation every 6 hrs for 90 days 12/09/2024 Active Social History Sex Assigned At : Social History Observation Description Sex Assigned At Female Problems Problem Type SNOMED Code ICD Code Onset Dates Problem Status W/U Status Risk Notes Problem 231944621 Moderate persistent asthma, unspecified whether complicated (J45.40) Active confirmed Encounters Encounter Location Date Provider Diagnosis Ronnell Daniels III, MD [address] [place] [address] [address] [place] [address] 12/09/2024 Ronnell Daniels Moderate persistent asthma, unspecified whether complicated J45.40 Assessments Encounter Date Diagnosis (ICD Code) Assessment Notes Treat ment Notes Treatment Clinical Notes 12/09/2024 Moderate persistent asthma, unspecified whether complicated (ICD-10 - J45.40) Plan Of Treatment Medication Medication Name Sig Start Date Stop Date Notes Albuterol Sulfate (2.5 MG/3ML) 0.083% 3 mL as needed for wheezing Inhalation every 6 hrs for 90 days 12/09/2024 Progress Notes * May DDOB:1955 (69 yo F)Acc No.[id number]:12/09/2024 Patient: Yuli SCHAEFFERMay :1955 A ge:69 Y S ex:Female Address:[address] [place] [address], [address] * Refills Start Albuterol Sulfate Nebulization Solution, (2.5 MG/3ML) 0.083%, Inhalation, 1080 ML, 3 mL as needed for wheezing, every 6 hrs, 90 days, Refills=3 Subjective: * Chief Complaints: * R x Request * Medical History: * Surgical History: * Hospitalization/Major Diagno stic Procedure: * Medications: Objective: * Vitals: * Physical Examination: Assessment: * Assessment: 1. M oderate persistent asthma, unspecified whether complicated - J45.40 (Primary) ? Plan: * Treatment: * Procedure Codes: * true * Date: Generated for Heather haq/Stella/Gopal on: 03/01/2024 04:46 PM EST
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
--- OUTSIDE RECORDS SUMMARY | 2024-12-30 16:45 | XMS_ITS | Patient Health Record ---
Author Organization [facility] Address [address] [place] [address] Care Team Providers Care Canal Equipment Mechanic Name Role Phone Asad Tripp Primary Care Provider Ronnell Connor Unavailable [phone] Reason For Referral No Information Medications Medication SIG (Take, Route, Frequency, Duration) Notes Start Date End Date Status Omeprazole 20 MG 1 capsule Orally Onc e a day; Duration: 30 day(s) 11/22/2014 Active Suprep Bowel Prep 1 kit as directed Oral ly as directed; Duration: 1 dose 03/31/2014 Activ e buPROPion HCl ER (SR) 150 MG 1 tablet Orally Twice a day Active Problems Problem Type SNOMED Code ICD Code Onset Dates Problem Status W/U Status Risk Notes Problem Dysphagia (97682716) Dysphagia (787.20) Active confirmed Problem Colon cancer screening (194579492) Colon cancer screening (V76.51) Active confirmed Problem Gastroesophageal reflux disease (366185595) GERD (gastroesopha geal reflux disease) (530.81) Active confirmed Plan Of Treatment Future Test Test Name Order Date UPPER GI ENDOSCOPY BALLOOON DILATION OF ESOPH 03/31/2014 COLONOSCOPY 03/31/2014 Insurance Providers Payer Name Payer Address Payer Phone Subscriber Number Group Number Insured Name Patient Relationship to Insured Coverage Start Date Coverage End Date [facility] [address] [facility] [phone] [id number] May Self - patient is the insured Medical (General) History Medical History History ICD Code Denies [place],DM,CVA,Lung disease,renal dise ase Depression GERD Surgical History Surgery Date(Month/Year) Knee surgeries Shoulder surgery-right--rotator cuff Lumpectomy X2--benign Elbow surgery
--- OUTSIDE RECORDS SUMMARY | 2024-12-30 16:46 | XMS_ITS | Patient Health Record ---
Author Organization Ronnell Daniels III, MD Address [address] [place] [address] DR PATEL Alberto [place] [address] Care Team Providers Care Manager Orange Name Role Phone Dr. Ronnell Daniels III [...] 05:37:36 AM Interpretation: Performing Lab: Notes/Report: [address] [place] [address] Mammography Report Signed Patient: MR#: [id number] : 1955 Acct:[id number] Age/Sex: 68 / F ADM Date: 01/09/24 Loc: HO.MAMMO Attending Dr: Ronnell Daniels MD Ordering Physician: Ronnell Daniels MD Results: 1Negativ e Date of Service: 01/09/24 Follow Up: 1 Year From Orig inal Mammogram Procedure(s): MM tomosynthesis screening BI Accession Number(s): [id number] cc: Ronnell Daniels MD EXAMINATION: MM SCREENING [...] 01/21/24 0905 DD/ 1435 TD/TT: 01/09/24 1448 Home Specialist: [facility] [address] [place] [address] Mammography Report Signed Patient: Chin MR#: [id number] : 1955 Acct:[id number] Age/Sex: 68 / F ADM Date: 01/09/24 Loc: HO.MAMMO Attending Dr: Ronnell Daniels MD Ordering Physician: Ronnell Daniels MD Results: 1Negativ e Date of Service: Follow Up: 1 Year From [facility] ina Mammogram Procedure(s): MM krzysztof osynthesis screening BI Accession Number(s): [id number] cc: Ronnell Daniels MD EXAMINATION: MM SCREENING [...] next mammogram. Electronically nery d by: Annette Banueols DO 01/21/2024 09:05 AM EST Dictated By: Annette Quiroz i, DO Signed By: <Electron ically signed by Annette Banuelos DO in OV> 01/21/24 0905 DD/ 1435 TD/TT: 01/09/24 1448 Home Specialist: Reason For Referral No Information Medications Medication SIG (Take, Route, Frequency, Duration) Notes Start Date End Date Status Wegovy 1 MG/0.5ML 0.5 mL Subcutaneous weekly 11/19 Active Albuterol Sulfate (2.5 MG/3ML) 0.083% 3 mL as needed Inhalation twice a day for 90 days Active Asmanex HFA Active Albuterol Sulfate HFA [...] Problem Status W/U Status Risk Notes Problem 1456800 Former smoker (Z87.891) Active confirmed She seems highl y motivated not to smoke. We formulated a plan to prevent relapse in times of stress and illness. Problem 822031471 Overweight (E66.3) Active confirmed We reviewed her diet and nutrition today. I recommended weight loss at a rate of one half of a pound per week through a diet restricted in fat calories and sodium combined with regular physical activity.A change was made in the dose of the Wegovy. She will now take 2.4 mg weekly. Problem 56616587 Anxiety (F41.9) Active confirmed She has felt a great deal of anxiety lately. She is going to see her therapist. She declined my offer of medication. Problem 706219720 Other obesity due to excess calories (E66.09) Active confirmed Her body mass index is now in the overweight range. The Wegovy was increased to 1.0 mg by subcutaneous injection weekly. Problem Atherosclerosis of coronary artery (632159891) Coronary atherosclerosis due to calcified coronary lesion (I25.84) Active confirmed She has had no angina or chest pain since her last visit. No change in her regimen was made. She has seen a sifter operator who thinks the pain comes from her lungs. Problem 540096888 Atypical squamous cells of undetermined significance on cytologic smear of cervix (ASC-US) (R87.610) Active confirmed Her previous physicians records indicate a history of positivity for HPV and ACUS. She has an upcoming appointment and I will attempt to find old records. Problem 656342777 Cervical high risk human papillomavirus (HPV) DNA test positive (R87.810) Active confirmed She will remain under the care of her database modeler. Problem Hypertension (48927211) HTN (hypertension) (I10) Active confirmed Her blood pressure is in the normal range today. No change in her regimen was recommended. Problem 426848486 Pulmonary nodule (R91.1) Active confirmed The CT scan of February 18, 2022 shows possible increase in a 3 mm nodule right upper lobe. This will be subject to surveillance. Problem 219229517 Pedal edema (R60.0) Active confirmed She says she wa s bitten by a spider and now has bilateral edema of the feet butt can put her shoes and socks on. I recommended elevating her legs and using a topical hydroccortisone on the left foot to reduce the itching. A rate feet visit was scheduled for Sunday of this week. Problem 183757416 Primary osteoarthritis involving multiple joints (M15.0) Active confirmed She has finishe d with the orthopedic surgeon and will now see the toddler nanny. She will take the meloxicam. Problem 93781665 PTSD (post-traumatic stress disorder) (F43.10) Active confirmed She will continue with therapy. Problem Hyperlipidaemia (92639117) Hyperlipidemia, unspecified hyperlipidemia type (E78.5) Active confirmed No change in he r medications was made today. Comprehensive blood work with fasting lipids has been ordered prior to her next visit. Problem 042415174 History of depression (Z86.59) Active confirmed She says today that she has stopped all of her medications. It was unclear if she was taking the antidepressants. I strongly recommended she take them. I will arrange close follow-up with her. She adamantly denied any suicidal thoughts or desire to hurt himself. Problem 94285777 Sciatica of right side (M54.31) Active confirmed Her back pain i s significantly better than recently. She will continue on current treatment. Problem Asthma without status asthmaticus (73565454) Asthma, unspecified asthma severity, unspecified whether complicated, unspecified whether persistent (J45.909) Active confirmed She was breathing comfortably today and her asthmatic bronchitis has resolved. She was encouraged to call me if it worsens. Problem 082789481 Moderate persistent asthma, unspecified whether complicated (J45.40) Active confirmed Problem 248520761 Osteopenia, unspecified location (M85.80) Active confirmed She will have a bone density every 2 years. I recommended 500 mg of calcium per day orally with a multiple vitamin. She says she has been doing this. She denies any new bone pain in her back. Problem 23221488 Closed nondisplaced fracture of patella with routine healing, unspecified fracture morphology, unspecified laterality, subsequent encounter (S82.009D) Active confirmed The pain in her knee is still present but is slowly diminishing as the wound heals. 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 Problem 339270815 Closed fracture of right wrist with routine healing, subsequent encounter (S62.101D) Active confirmed I encouraged he r to continue her visits to the orthopedist and she said she would do so. 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 She will proceed to the CT scan and the pulmonary retail wireless sales consultant, Dr. Beltre, and we will reevaluate the status of her infection. I strongly advised her to finish the antibiotics. Problem 357223783 Nonspecific low back pain (M54.50) Active confirmed [...] Date Provider Diagnosis Ronnell Daniels III, MD [address] [place] [address] [place] [phone] 01/14/2024 Ronnell Daniels Hyperlipidemia, unspecified hyperlipidemia type E78.5 ; Overweight E66.3 ; Asthma, unspecified asthma severity, unspecified whether complicated, unspecified whether persistent J45.909 ; History of depression Z86.59 ; Former smoker Z87.891 ; Primary osteoarthritis involving multiple joints M15.0 ; Coronary atherosclerosis due to calcified coronary lesion I25.84 and HTN (hypertension) I10 Ronnell Daniels III, MD [address] [place] [address] [place] [phone] 06/24/2024 Ronnell Daniels Hyperlipidemia, unspecified hyperlipidemia type E78.5 ; Pedal edema R60.0 ; Overweight E66.3 ; Asthma, unspecified asthma severity, unspecified whether complicated, unspecified whether persistent J45.909 ; History of depression Z86.59 and Former smoker Z87.891 Ronnell Daniels III, MD [address] [place] [address] [place] [phone] 06/27/2024 Ronnell Daniels Hyperlipidemia, unspecified hyperlipidemia type E78.5 ; Insect bite without infection W57.XXXA ; Overweight E66.3 ; History of depression Z86.59 ; Osteopenia, unspecified location M85.80 ; Cervical high risk human papillomavirus (HPV) DNA test positive R87.810 ; Sciatica of right side M54.31 ; Coronary atherosclerosis due to calcified coronary lesion I25.84 and Former smoker Z87.891 Ronnell Daniels III, MD [address] [place] [address] [address] [place] [phone] 07/02/2024 Ronnell Daniels Hyperlipidemia, unspecified hyperlipidemia type E78.5 ; Mycobacterium avium infection A31.0 ; Overweight E66.3 ; Asthma, unspecified asthma severity, unspecified whether complicated, unspecified whether persistent J45.909 ; History of depression Z86.59 ; PTSD (post-traumatic stress disorder) F43.10 ; Former smoker Z87.891 and Coronary atherosclerosis due to calcified coronary lesion I25.84 Ronnell Daniels III, MD [address] [place] [address] [address] [place] [phone] 08/12/2024 Ronnell Daniels Hyperlipidemia, unspecified hyperlipidemia type E78.5 ; Mycobacterium avium infection A31.0 ; Overweight E66.3 ; History of depression Z86.59 ; PTSD (post-traumatic stress disorder) F43.10 ; Primary osteoarthritis involving multiple joints M15.0 ; Osteopenia, unspecified location M85.80 and Nonspecific low back pain M54.50 Ronnell Daniels III, MD [address] [place] [address] [address] [place] [phone] 08/15/2024 Ronnell Daniels Hyperlipidemia, unspecified hyperlipidemia type [...] Former smoker Z87.891 Ronnell Daniels III, MD [address] [place] [address] [address] [place] [address] 01/28/2024 Ronnell Daniels Hyperlipidemia, unspecified hyperlipidemia type E78.5 Ronnell Daniels III, MD [address] [place] [address] [address] [place] [phone] 04/24/2024 Ronnell Daniels III, MD [address] [place] [address] [address] [place] [address] 07/24/2024 Ronnell Daniels III, MD [address] [place] [address] [address] [place] [address] 08/11/2024 Ronnell Daniels III, MD [address] [place] [address] [address] [place] [phone] 12/09/2024 Ronnell Daniels Moderate persistent asthma, unspecified whether complicated J45.40 Assessments Encounter Date Diagnosis (ICD Code) Assessment Notes T reatment Notes Treatment Clinical Notes 01/14/2024 Overweight (ICD-10 - E66.3) We reviewed [...] to the CT scan and the pulmonary retail wireless sales consultant, Dr. Beltre, and we will reevaluate [...] to the CT scan and the pulmonary retail wireless sales consultant, Dr. Beltre, and we will reevaluate [...] been ordered prior to her next visit. 12/09/2024 Moderate persistent asthma, unspecified whether complicated (ICD-10 - J45.40) 01/14/2024 Asthma, unspecified asthma severity, unspecified whether [...] will now take 2.4 mg weekly. 01/14/2024 History of depressio n (ICD-10 - [...] to call me if it worsens. 01/14/2024 Former smoker (ICD-1 0 - Z87.891) [...] orthopedic surgeon and will now see the toddler nanny. She will take the meloxicam. 06/24/2024 Former smoker (ICD-1 0 - Z87.891) 06/27/2024 Cervical high risk human papillomavirus (HPV) DNA test positive (ICD-10 - R87.810) She will remain under the care of her database modeler. 07/02/2024 PTSD (post-traumatic stress disorder) (ICD-10 - F43.10) She will continue with therapy. 08/12/2024 Primary osteoarthritis involving multiple joints (ICD-10 - M15.0) She has finished with the orthopedic surgeon and will now see the toddler nanny. She will take the meloxicam. 08/15/2024 Cervical high risk human papillomavirus (HPV) DNA test positive (ICD-10 - R87.810) She will remain under the care of her database modeler. 01/14/2024 Coronary atherosclerosis due to calcified coronary lesion (ICD-10 - I25.84) She has had no angina or chest pain since her last visit. No change in her regimen was made. She has seen a sifter operator who thinks the pain comes from [...] regimen was made. She has seen a sifter operator who thinks the pain comes from her lungs. 07/02/2024 Coronary atherosclerosis due to calcified coronary lesion (ICD-10 - I25.84) She has had no angina or chest pain since her last visit. No change in her regimen was made. She has seen a sifter operator who thinks the pain comes from her lungs. 08/12/2024 Nonspecific low back pain (ICD-10 - M54.50) A follow-up visit in short order was arranged. She will use her medication as well as ibuprofen and heat and rest. 08/15/2024 Primary osteoarthritis involving multiple joints (ICD-10 - M15.0) She has finished with the orthopedic surgeon and will now see the toddler nanny. She will take the meloxicam. 06/27/2024 Former [...] regimen was made. She has seen a sifter operator who thinks the pain comes from [...] Order Date PROFILE, FASTING (COMPREHENSIVE METABOLI C) 07/15/2021 PROFILE, FASTING (COMPREHENSIVE METABOLI C) 12/09/2018 PROFILE, FASTING (COMPREHENSIVE METABOLI C) 02/02/2022 PROFILE, FASTING (COMPREHENSIVE METABOLI C) 04/12/2021 PROFILE, FASTING (COMPREHENSIVE METABOLI C) 07/02/2024 PROFILE, FASTING (COMPREHENSIVE METABOLI C) 06/16/2019 PROFILE, FASTING (COMPREHENSIVE METABOLI C) 12/01/2020 PROFILE, RANDOM (COMPREHENSIVE METABOLIC ) 04/14/2020 LIPID [...] 02/02/2022 Lipid Panel 04/12/2021 CA stress test 03/09/2022 CA stress test 02/02/2022 Insurance Providers Payer Name Payer Address Payer Phone Subscriber Number Group Number Insured Name Patient Relationship to Insured Coverage Start Date Coverage End Date MEDICARE NGS [address] [place] [phone] [id number] May Self - patient is the insured [place] [employer] [facility] [address] [place], [place] [id number] [phone] [id number] 1 May Self - patient is the [...] to undergo colonoscopy Bilateral necrotizing cavitary pneumonia [facility] November 2021 Surgical History Surgery Date(Month/Year) No history right wrist colle's fracture, fall 3 right humerus fracture, fall 05/2022 Left lung Bx 2021 Gallbladder right shoulder surgery right knee surgery x3 2018 Hospitalization History Reason Date(Month/Year) No history Hypertension 03/2019
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
== END 2024-12-30 15:04 | disposition home or self-care (01) ==
LOC: HO.HOP 15:03
PROVIDERS: PCP Internal Medicine Medical Oncology; Visit Provider Clinical Nurse Specialist Psychiatric/Mental Health
DX: F43.10 Post-traumatic stress disorder, unspecified (principal); F40.01 Agoraphobia with panic disorder; F33.9 Major depressive disorder, recurrent, unspecified
CPT/HCPCS: 99214

== ENCOUNTER 2025-01-29 13:28 | Outpatient (AMB) | payer MEDICARE, SELFPAY ==
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
== END 2025-01-29 13:29 | disposition home or self-care (01) ==
LOC: HO.HOP 13:28
PROVIDERS: PCP Internal Medicine Medical Oncology; Visit Provider Clinical Nurse Specialist Psychiatric/Mental Health
DX: F33.1 Major depressive disorder, recurrent, moderate (principal); F43.11 Post-traumatic stress disorder, acute; F40.01 Agoraphobia with panic disorder
CPT/HCPCS: 99214